=== PATIENT | male | born 1960 | race Caucasian/White ===

== ENCOUNTER 2017-03-03 15:01 | Emergency (ER) | payer OTHER ==
[~2017-03-03] VITALS: Ht 190.5 cm; Wt 125.0 kg
[2017-03-03 15:04] VITALS: BP 157/78; PULSE 79; RESP 24; TEMP 97.7; O2SAT 97
[2017-03-03] MEDS ORDERED: MULTCAP14 (16:09)
[2017-03-03] MEDS ORDERED: prosvent (16:09)
[2017-03-03] MEDS ORDERED: HYDR12.57 PO (16:09)
[2017-03-03] MEDS ORDERED: AMLO10TA2 PO (16:09)
--- NOTE | 2017-03-03 17:01 | PD ---
HPI Chief Complaint: Injury Time Seen by Provider: 16:44 Travel History International Travel<30 days: No Contact w/Intl Traveler<30days: No Traveled to known affect area: No History of Present Illness HPI 56-year-old male complains of headache and bilateral hand pain. Patient states that he slipped and fell and hit the back of his head this morning. Patient denies loss of consciousness. Patient complains of headache in the back of the head. Patient denies any visual change. Patient denies any neck pain. Patient denies any chest pain or shortness of breath. Patient denies abdominal pain. Patient complaining of bilateral hand pain. Patient denies any focal weakness or numbness of extremity. Patient has history recurrent low back pain. PFSH Social History Tobacco Use: No Allergies-Medications (Allergen,Severity, Reaction): Coded Allergies: No Known Allergies (Unverified , 03/03/17) Reported Meds & Prescriptions Reported Meds & Active Scripts Active [place] (Hydrocodone-Acetaminophen) 5-325 mg Tab 1 Tab PO Q6H PRN Ibuprofen 400 Mg Tab 400 Mg PO Q6H PRN Reported Multi For Him (Multiple Vitamins W/ Minerals) 1 Cap Cap [prosvent] Hydrochlorothiazide 12.5 Mg Cap 12.5 Mg PO DAILY Amlodipine (Amlodipine Besylate) 10 Mg Tab 10 Mg PO DAILY Review of Systems General / Constitutional: No: Fever Eyes: No: Visual changes HENT: Positive: Headaches Cardiovascular: No: Chest Pain or Discomfort Respiratory: No: Shortness of Breath Gastrointestinal: No: Abdominal Pain Genitourinary: No: Dysuria Musculoskeletal: Positive: Pain Skin: No Rash Neurologic: No: Weakness Psychiatric: No: Depression Endocrine: No: Polydipsia Hematologic/Lymphatic: No: Easy Bruising Physical Exam Narrative GENERAL: Well-nourished, well-developed patient. SKIN: Focused skin assessment warm/dry. HEAD: Normocephalic. EYES: No scleral icterus. No injection or drainage. Pupils 3 mm equal reactive. NECK: Supple, trachea midline. No JVD or lymphadenopathy. CARDIOVASCULAR: Regular rate and rhythm without murmurs, gallops, or rubs. RESPIRATORY: Breath sounds equal bilaterally. No accessory muscle use. GASTROINTESTINAL: Abdomen soft, non-tender, nondistended. MUSCULOSKELETAL: No cyanosis, or edema. Patient has mild to moderate tenderness and palpation dorsal aspect of both hands. Range of motion of fingers. No redness swelling deformity noted. Full range of motion of the fingers. BACK: Nontender without obvious deformity. No CVA tenderness. Neurologic exam: Patient's awake alert oriented 3. No obvious focal neurological deficit. Data Data Last Documented VS Vital Signs Date Time Temp Pulse Resp B/P Pulse Ox O2 Delivery O2 Flow Rate FiO2 03/03/17 15:04 97.7 79 24 157/78 97 Room Air Orders Hand, Complete ([id number]) (03/03/17 17:04) Ct Brain W/O Iv Contrast(Rout) (03/03/17 17:04) Hand, Complete ([id number]) (03/03/17 17:04) Splinting (03/03/17 ) Ibuprofen (Motrin) (03/03/17 18:15) Acetamin-Hydrocod 325-5 Mg ([place] 5-325 (03/03/17 18:15) Fiberglass Sugartong Sp Ad Arm (03/03/17 ) Sling Cradle Arm (03/03/17 ) MDM Medical Decision Making Medical Screen Exam Complete: Yes Emergency Medical Condition: Yes Differential Diagnosis Differential diagnosis including contusion, concussion, intracranial hemorrhage , Hand contusion versus fracture. Narrative Course 56-year-old male head injury and bilateral hand injury Scripts Hydrocodone-Acetaminophen ([place])5-325 mg Tab1 Tab PO Q6H PRN (PAIN) #12 TAB Ref 0 Prov:Derek Hein MD 03/03/17 Ibuprofen 400 Mg [id number] Mg PO Q6H PRN (PAIN SCALE 1 TO 10) #20 TAB Ref 0 Prov:Derek Hein MD 03/03/17 Nigel Maldonado MD Mar 03, 2017 17:01
--- NOTE | 2017-03-03 17:34 | PD ---
Physical Exam Date Seen by Provider: Mar 03, 2017 Time Seen by Provider: 17:33 Narrative The patient is a 56-year-old male was initially evaluated by the previous physician, Dr. Maldonado. Please refer to the initial history, physical, diagnostic evaluation, and treatment modality plan. The patient was signed out of 5 PM with x-ray and CT pending. Data Data Last Documented VS Vital Signs Date Time Temp Pulse Resp B/P Pulse Ox O2 Delivery O2 Flow Rate FiO2 03/03/17 15:04 97.7 79 24 157/78 97 Room Air Orders Hand, Complete ([id number]) (03/03/17 17:04) Ct Brain W/O Iv Contrast(Rout) (03/03/17 17:04) Hand, Complete ([id number]) (03/03/17 17:04) [facility] Medical Record Reviewed: Yes Supervised Visit with APURVA: No Interpretation(s) Last Impressions Head CT 03/03/171703 Signed Impressions: Service Date/Time: Friday, March 03, 2017 17:29 - CONCLUSION: Negative for an acute process.. Arsh Garza MD FACR Hand X-Ray 03/03/171703 Signed Impressions: Service Date/Time: Friday, March 03, 2017 17:34 - CONCLUSION: Nondisplaced radial styloid fracture. Arsh Garza MD FACR Hand X-Ray 03/03/171703 Signed Impressions: Service Date/Time: Friday, March 03, 2017 17:29 - CONCLUSION: Negative for fracture or dislocation. Follow up in 7-10 days is suggested if symptoms persist. Arsh Garza MD FACR Differential Diagnosis Differential diagnoses includes mechanical fall, closed head injury, fracture, hematoma, contusion, dislocation. Narrative Course The patient was initially evaluated by the previous physician, Dr. Maldonado. Please refer to the initial history, physical, diagnostic evaluation, and treatment modality plan. The patient was sent out of 5 PM with x-ray and CT pending. CT the brain is negative. X-ray left hand is unremarkable. X-ray the right hand reveals a nondisplaced radial styloid fracture. Therefore, the patient was placed in a sugar tong splint, is advised to follow-up with orthopedics. Patient will be prescribed pain medications. He is stable for discharge. Diagnosis Primary Impression: Right wrist fracture Qualified Code: S62.101A - Right wrist fracture, closed, initial encounter Additional Impression: Closed head injury Qualified Code: S09.90XA - Closed head injury, initial encounter Patient Instructions: General Instructions Additional Instruction: Splint as directed. Elevate, ice, Motrin and [place] as directed. Follow-up with an orthopedist. Med/Other Pt SpecificInfo: Prescription(s) given Scripts Hydrocodone-Acetaminophen ([place])5-325 mg Tab1 Tab PO Q6H PRN (PAIN) #12 TAB Ref 0 Prov:Derek Hein MD 03/03/17 Ibuprofen 400 Mg Buf597 Mg PO Q6H PRN (PAIN SCALE 1 TO 10) #20 TAB Ref 0 Prov:Derek Hein MD 03/03/17 Disposition: 01 DISCHARGE HOME Condition: Stable Derek Hein MD Mar 03, 2017 17:34
--- NOTE | 2017-03-03 17:43 | RADRPT ---
EXAM DATE/TIME: 03/03/2017 17:29 [facility] COMPARISON: No previous studies available for comparison. INDICATIONS : Left hand pain after fall today MEDICAL HISTORY : None. SURGICAL HISTORY : None. ENCOUNTER: Initial ACUITY: 1 day PAIN SCORE: 9/10 LOCATION: Left entire hand FINDINGS: Three view examination of the left hand demonstrates no soft tissue swelling, dislocation, or fractur e. The carpal bones appear intact. The interphalangeal and metacarpophalangeal joints are intact. Bony mineralization is normal. CONCLUSION: Negative for fracture or dislocation. Follow up in 7-10 days is suggested if symptoms persist. Arsh Garza MD FACR on March 03, 2017 at 17:41 Board Certified Radiologist. This report was verified electronically.
--- NOTE | 2017-03-03 17:48 | RADRPT ---
EXAM DATE/TIME: 03/03/2017 17:29 [facility] COMPARISON: No previous studies available for comparison. INDICATIONS : Slip and fall today; hit posterior head. RADIATION DOSE: 44.27 CTDIvol (mGy) MEDICAL HISTORY : None SURGICAL HISTORY : None. ENCOUNTER: Initial ACUITY: 1 day PAIN SCALE: 6/10 LOCATION: cranial Posterior TECHNIQUE: Multiple contiguous axial images were obtained of the head. Using automated exposure control and adj ustment of the mA and/or kV according to patient size, radiation dose was kept as low as reasonably a chievable to obtain optimal diagnostic quality images. FINDINGS: CEREBRUM: The ventricles are normal for age. No evidence of midline shift, mass lesion, hemorrhage or acute in farction. No extra-axial fluid collections are seen. POSTERIOR FOSSA: The cerebellum and brainstem are intact. The 4th ventricle is midline. The cerebellopontine angle i s unremarkable. EXTRACRANIAL: The visualized portion of the orbits is intact. SKULL: The calvaria is intact. No evidence of skull fracture. CONCLUSION: Negative for an acute process.. Arsh Garza MD FACR on March 03, 2017 at 17:42 Board Certified Radiologist. This report was verified electronically.
--- NOTE | 2017-03-03 17:49 | RADRPT ---
EXAM DATE/TIME: 03/03/2017 17:34 [facility] COMPARISON: No previous studies available for comparison. INDICATIONS : Right hand pain after fall today MEDICAL HISTORY : None. SURGICAL HISTORY : None. ENCOUNTER: Initial ACUITY: 1 day PAIN SCORE: 9/10 LOCATION: Right entire hand FINDINGS: There is an nondisplaced fracture of the radial styloid. No other fractures are appreciated. CONCLUSION: Nondisplaced radial styloid fracture. Arsh Garza MD FACR on March 03, 2017 at 17:46 Board Certified Radiologist. This report was verified electronically.
[2017-03-03] MEDS ORDERED: IBUP400T20 PO (18:11)
[2017-03-03] MEDS ORDERED: NORC5TAB PO (18:11)
[2017-03-03] MEDS ORDERED: IBUPROFEN 400 MG TAB PO ONE (18:15)
[2017-03-03] MEDS ORDERED: ACETAMINOPHEN/HYDROcodone 325 MG/5 MG TAB PO ONE (18:15)
== END 2017-03-03 19:18 | disposition home or self-care (01) ==
LOC: NEPD 15:01
DX: S62.101A Fracture of unspecified carpal bone, right wrist, initial encounter for closed fracture (principal); S09.90XA Unspecified injury of head, initial encounter; M79.642 Pain in left hand; Z87.39 Personal history of other diseases of the musculoskeletal system and connective tissue; W01.0XXA Fall on same level from slipping, tripping and stumbling without subsequent striking against object, initial encounter
CPT/HCPCS: 29125; 70450; 73130

== ENCOUNTER 2017-05-01 16:17 | Emergency (ER) | payer OTHER ==
[~2017-05-01] VITALS: Ht 190.5 cm; Wt 120.0 kg
[~2017-05-01 16:17] MED LIST: AMLO10TA2 PO; HYDR12.57 PO; IBUP400T20 PO; MULTCAP14; NORC5TAB PO; prosvent
[2017-05-01 16:26] VITALS: BP 134/79; PULSE 82; RESP 20; TEMP 97.7; O2SAT 97
--- NOTE | 2017-05-01 16:36 | PD ---
Physical Exam Date Seen by Provider: May 01, 2017 Time Seen by Provider: 16:36 Data Data Last Documented VS Vital Signs Date Time Temp Pulse Resp B/P Pulse Ox O2 Delivery O2 Flow Rate FiO2 05/01/17 16:26 97.7 82 20 134/79 97 Room Air MDM Supervised Visit with APURVA: No Narrative Course 56 YO M with complaint of 6/10 right hip pain after mechanical fall onto the grass. Normally ambulatory with walker. Arrives by EMS. Vitals reviewed. Awaiting bed placement. Dinora Haro May 01, 2017 16:36
[2017-05-01] MEDS ORDERED: CYCLOBENZAPRINE HCL 10 MG TAB PO ONE (17:15)
[2017-05-01] MEDS ORDERED: KETOROLAC TROMETHAMINE 60 MG/2 ML (IM) VIAL IM ONE (17:15)
--- NOTE | 2017-05-01 17:21 | PD ---
HPI Chief Complaint: Fall Time Seen by Provider: 17:00 Travel History International Travel<30 days: No Contact w/Intl Traveler<30days: No Traveled to known affect area: No History of Present Illness HPI Patient comes in complaining of right hip pain status post mechanical fall that occurred shortly prior to arrival. Patient states that he is trying to get into his van when he lost his balance causing him to fall backwards landing on his right hip and falling back. Patient reports he normally walks with a cane secondary to degenerative disc disease however he was using a walker today that is his [id number] because his did not want it to get stolen. Patient denies hitting his head or loss consciousness. Denies any chest pain, shortness of breath, loss of bowel or bladder, numbness or tingling anywhere, dizziness, headache, or fevers. Patient describes pain as feeling like a deep bruise. Pain is worse with palpation certain movement. Denies any radiation of the pain. Patient states called EMS secondary to he was having difficulty being able stand up again secondary to the pain. PFSH Past Medical History Cardiovascular Problems: Yes (HTN) Hypertension: Yes Medical other: Yes (Degenerative disk disease) Past Surgical History Surgical History: No Previous Surgery Social History Alcohol Use: No Tobacco Use: No Substance Use: No Allergies-Medications (Allergen,Severity, Reaction): Coded Allergies: Lisinopril (Verified Allergy, Unknown, Hives, 05/01/17) Pt. remembered reaction during another appointment. Reported Meds & Prescriptions Reported Meds & Active Scripts Active Flexeril (Cyclobenzaprine HCl) 10 Mg Tab 10 Mg PO Q8HR PRN Naprosyn (Naproxen) 500 Mg Tab 500 Mg PO Q12HR PRN Ibuprofen 400 Mg Tab 400 Mg PO Q6H PRN Reported Multi For Him (Multiple Vitamins W/ Minerals) 1 Cap Cap [prosvent] Hydrochlorothiazide 12.5 Mg Cap 12.5 Mg PO DAILY Amlodipine (Amlodipine Besylate) 10 Mg Tab 10 Mg PO DAILY Review of Systems Except as stated in HPI: all other systems reviewed are Neg Physical Exam Narrative GENERAL: Well-developed, overly nourished, in no acute distress, and non-ill appearing. SKIN: Focused skin assessment warm and dry. HEAD: Atraumatic. Normocephalic. EYES: Pupils equal and round. EOMI. No scleral icterus. No injection or drainage. ENT: No nasal bleeding or discharge. Mucous membranes pink and moist. NECK: Trachea midline. Supple. No nuclear rigidity. CARDIOVASCULAR: Dorsal pulses 2+, intact, and equal bilaterally. Capillary refill less than 2 seconds. RESPIRATORY: No accessory muscle use. No respiratory distress. GASTROINTESTINAL: Abdomen soft, non-tender, nondistended. Hepatic and splenic margins not palpable. No pulsatile mass. MUSCULOSKELETAL: No obvious deformities. No clubbing. No cyanosis. No edema. Full range of motion. Straight leg test negative bilaterally. No tenderness or crepitus throughout lumbar spine.Hip: FROM and equal BL with passive flexion , extension, Abduction, Adduction, and internal/external rotation. Pulses equal BL distal to injury. Capillary refill less than 2 seconds distal to injury and equal BL. FROM distal to injury and equal BL. Strength distal to injury equal BL. NV intact distal to injury and equal BL. Plantar flexion and dorsal flexion equal BL. Dorsal pulses equal BL. Sensation equal BL 1st web space. Patient reports increased pain with certain movement of right hip. NEUROLOGICAL: Awake and alert. No obvious cranial nerve deficits. Motor grossly within normal limits. Normal speech. PSYCHIATRIC: Appropriate mood and affect; insight and judgment normal. Data Data Last Documented VS Vital Signs Date Time Temp Pulse Resp B/P Pulse Ox O2 Delivery O2 Flow Rate FiO2 05/01/17 19:02 65 16 155/72 97 05/01/17 16:26 97.7 Room Air Orders Ketorolac Inj (Toradol Inj) (05/01/17 17:15) Cyclobenzaprine (Flexeril) (05/01/17 17:15) Hip, Uni(Ap&Lat) W Ap Pelvis (05/01/17 ) Diphenhydramine (Benadryl) (05/01/17 17:45) MDM Medical Decision Making Medical Screen Exam Complete: Yes Emergency Medical Condition: Yes Interpretation(s) Hip x-ray read by the radiologist shows: Severe osteoarthritis of the right hip with bony hypertrophy and complete loss of the superior joint space. No fracture seen. Differential Diagnosis Fracture, sprain, contusion, other Narrative Course The patient appears to have suffered a contusion of the hip. There is no clinical evidence to suspect bony injury by exam. Radiographic examination revealed no fracture seen at this time. The patient has full range of motion on active and passive motions. There is no significant edema. There is no proximal or distal joint effusion. The distal extremity appears neurovascularly intact, without evidence of neurovascular injury nor compartment syndrome. Tendon exam also was intact. The patient was discharged on pain medication instructions and given warnings for vascular compromise. The patient is to follow up with their regular physician or Orthopedics. The patient agrees with plan. Patient in no obvious distress upon re-evaluation. All pertinent Radiology result(s) discussed with patient. Patient was asked if they wanted to speak to my attending, which the patient did not wish to do at this time. Any questions/ concerns in reference to patient diagnosis/condition discussed and clarified prior to patient's discharge. Reinforced sheer importance of close follow up with patient's primary physician or primary care clinic. Instructed patient to return to ED immediately, if symptoms return/worsen. Pt showed understanding of above instructions. Further instructions and recommendations were detailed in discharge paperwork. Pt ambulated without difficulty out of ED at discharge with his walker. Diagnosis Primary Impression: Right hip pain Additional Impressions: Fall Qualified Code: W19.XXXA - Fall, initial encounter Arthritis of right hip Patient Instructions: Arthritis (ED), Contusion in Adults (ED), Fall Prevention (ED), General Instructions Additional Instructions: Follow-up with your primary care physician in 2-3 days for reevaluation and possible orthopedic referral. Take all medication as prescribed. Return to the emergency department if symptoms get worse. Med/Other Pt SpecificInfo: Prescription(s) given Scripts Cyclobenzaprine (Flexeril)10 Mg Tab10 Mg PO Q8HR PRN (MUSCLE PAIN) #14 TAB Ref 0 Prov:Trudy Humphrey MD 05/01/17 Naproxen (Naprosyn)500 Mg [id number] Mg PO Q12HR PRN (PAIN SCALE 1 TO 10) #14 TAB Ref 0 Prov:Trudy Humphrey MD 05/01/17 Disposition: 01 DISCHARGE HOME Condition: Stable Silvano Padilla May 01, 2017 17:21
[2017-05-01] MEDS ORDERED: diphenhydrAMINE HCL 25 MG CAP PO ONE (17:45)
--- NOTE | 2017-05-01 18:48 | RADRPT ---
EXAM DATE/TIME: 05/01/2017 17:21 [facility] COMPARISON: No previous studies available for comparison. INDICATIONS : Chronic right hip pain, worsening for several days MEDICAL HISTORY : None. SURGICAL HISTORY : None. ENCOUNTER: Initial ACUITY: 3 days PAIN SCORE: 7/10 LOCATION: Right hip FINDINGS: There is severe osteoarthritis of the right hip with complete loss of the superior joint space and sc lerosis about the supra-acetabular region and femoral head. There is also bony overgrowth of the inf erior femoral head with a large ossification. No fracture seen. There is mild degenerative changes in the left hip. The bony pelvic ring is grossly intact. CONCLUSION: Severe osteoarthritis of the right hip with bony hypertrophy and complete loss of the superior joint space. No fracture seen. Rancho Das MD on May 01, 2017 at 18:45 Board Certified Radiologist. This report was verified electronically.
[2017-05-01 19:02] VITALS: BP 155/72; PULSE 65; RESP 16; O2SAT 97
[2017-05-01] MEDS ORDERED: NAPR500 PO (19:08)
[2017-05-01] MEDS ORDERED: CYCL1TAB29 PO (19:08)
== END 2017-05-01 20:10 | disposition home or self-care (01) ==
LOC: NEPD 16:17
DX: I10 Essential (primary) hypertension (principal); M25.551 Pain in right hip; W19.XXXA Unspecified fall, initial encounter; Y92.007 Garden or yard of unspecified non-institutional (private) residence as the place of occurrence of the external cause
CPT/HCPCS: 73502; 96372; 99284; J1885

== ENCOUNTER 2017-12-21 15:00 | Inpatient (IN) | payer OTHER, MEDICARE ==
[~2017-12-21] VITALS: Ht 190.5 cm; Wt 126.4 kg
[~2017-12-21 15:00] MED LIST changes: +CYCL10TA PO; +IBUP1TAB5 PO; -IBUP400T20 PO; +NAPR500 PO; -NORC5TAB PO
[2017-12-21 15:24] VITALS: BP 127/69; PULSE 104; RESP 16; TEMP 98.6; O2SAT 98
[2017-12-21] MEDS ORDERED: ONDANSETRON HCL 4 MG/2 ML VIAL IVP ONE (16:30)
[2017-12-21] MEDS ORDERED: SODIUM CHLORIDE 0.9% FLUSH 10 ML FLUSH IV FLUSH PRN ×2 (16:30→17:15)
[2017-12-21] MEDS ORDERED: MORPHINE SULFATE 2 MG/ML INJ IV PUSH ONE (16:30)
[2017-12-21 16:36] VITALS: O2SAT 99
--- NOTE | 2017-12-21 16:39 | PD ---
HPI Chief Complaint: Injury Time Seen by Provider: 16:05 Travel History International Travel<30 days: No Contact w/Intl Traveler<30days: No Traveled to known affect area: No History of Present Illness HPI Patient comes in complaining of sharp stabbing pain in his right ankle that began after slipping fall on tile floor this morning. Patient states he thinks he landed on his right ankle causing the injury. Patient states he walks with a walker secondary to degenerative disc disease and was using it today when this occurred. Patient tried resting and elevating his ankle without improvement. Patient tried to ambulate without success. Patient denies any radiation of the pain. Touching it or applying weight to the right ankle makes the pain worse. Denies hitting his head or loss of consciousness. Denies being on any blood thinners. Patient reports he last ate around 8:00 this morning he had a couple sips of tea around noon. PFSH Past Medical History Cardiovascular Problems: Yes (HTN) Hypertension: Yes Tetanus Vaccination: < 5 Years Past Surgical History Surgical History: No Previous Surgery Social History Alcohol Use: No Tobacco Use: No Substance Use: No Allergies-Medications (Allergen,Severity, Reaction): Coded Allergies: lisinopril (Unverified Allergy, Unknown, Hives, 12/21/17) Pt. remembered reaction during another appointment. Reported Meds & Prescriptions Reported Meds & Active Scripts Active Reported Atorvastatin (Atorvastatin Calcium) 10 Mg Tab 10 Mg PO HS Gabapentin 300 Mg Cap 300 Mg PO HS Multi For Him (Multiple Vitamins W/ Minerals) 1 Cap Cap [prosvent] Hydrochlorothiazide 12.5 Mg Cap 12.5 Mg PO DAILY Amlodipine (Amlodipine Besylate) 10 Mg Tab 10 Mg PO DAILY Review of Systems Except as stated in HPI: all other systems reviewed are Neg Physical Exam Narrative GENERAL: Well-developed, overly nourished, in no acute distress, and non-ill appearing. SKIN: Focused skin assessment warm and dry. HEAD: Atraumatic. Normocephalic. EYES: Pupils equal and round. EOMI. No scleral icterus. No injection or drainage. ENT: No nasal bleeding or discharge. Mucous membranes pink and moist. NECK: Trachea midline. Supple. No nuclear rigidity. CARDIOVASCULAR: Dorsal pulses 2+, intact, equal bilaterally. Capillary refill less than 2 seconds. RESPIRATORY: No accessory muscle use. No respiratory distress. MUSCULOSKELETAL: No obvious deformities. No clubbing. No cyanosis. No edema. Decreased range of motion right ankle secondary to pain. Ankle: Neagative anterior draw and Loera test. Negative Lani's sign. No laxity noted with passive inversion and eversion of BL ankles. Negative squeeze test. Pulses equal BL distal to injury. Capillary refill less than 2 seconds distal to injury and equal BL. Sensation equal BL 1st web space. FROM of toes distal to injury and equal BL. NV intact distal to injury and equal BL. Dorsal pulses equal BL. Patient reports tenderness palpation bilateral ankle. No crepitus. Soft tissue swelling noted. NEUROLOGICAL: Awake and alert. No obvious cranial nerve deficits. Motor grossly within normal limits. Normal speech. PSYCHIATRIC: Appropriate mood and affect; insight and judgment normal. Data Data Last Documented VS Vital Signs Date Time Temp Pulse Resp B/P (MAP) Pulse Ox O2 Delivery O2 Flow Rate FiO2 12/21/17 16:36 99 12/21/17 15:24 98.6 104 16 Room Air Orders Orders Ankle, Complete ([id number]) (12/21/17 ) Basic Metabolic Panel (Bmp) (12/21/17 16:22) Complete Blood Count With Diff (12/21/17 16:22) Prothrombin Time / Inr (Pt) (12/21/17 16:22) Act Partial Throm Time (Ptt) (12/21/17 16:22) Iv Access Insert/Monitor (12/21/17 16:22) Ecg Monitoring (12/21/17 16:22) Oximetry (12/21/17 16:22) Ondansetron Inj (Zofran Inj) (12/21/17 16:30) Sodium Chloride 0.9% Flush (Ns Flush) (12/21/17 16:30) Morphine Inj (Morphine Inj) (12/21/17 16:30) Splint Or Brace Apply/Monitor (12/21/17 16:37) Admit Order (Ed Use Only) (12/21/17 ) Vital Signs (Adult) Q4H (12/21/17 17:05) Activity Bed Rest (12/21/17 17:05) Notify Dr: Other (12/21/17 17:05) Admit To Inpatient (12/21/17 ) Vital Signs (Adult) Q4H (12/21/17 17:05) Activity Bed Rest (12/21/17 17:05) Gunite Mixer / Telemetry .CONTINUOUS (12/21/17 17:05) Sodium Chloride 0.9% Flush (Ns Flush) (12/21/17 17:15) Sodium Chloride 0.9% Flush (Ns Flush) (12/21/17 21:00) Ondansetron Inj (Zofran Inj) (12/21/17 17:15) Basic Metabolic Panel (Bmp) (12/22/17 06:00) Complete Blood Count With Diff (12/22/17 06:00) Case Management Consult (12/21/17 17:05) Naloxone Inj (Narcan Inj) (12/21/17 17:15) Inpatient Certification (12/21/17 ) Morphine Inj (Morphine Inj) (12/21/17 17:15) Consult Orthopedic (12/21/17 ) Amlodipine (Norvasc) (12/22/17 09:00) Gabapentin (Neurontin) (12/21/17 21:00) Hydrochlorothiazide (Microzide) (12/22/17 09:00) MDM Medical Decision Making Medical Screen Exam Complete: Yes Emergency Medical Condition: Yes Interpretation(s) Last Impressions Ankle X-Ray 12/21/17 0000 Signed Impressions: Service Date/Time: Thursday, December 21, 2017 16:06 - CONCLUSION: 1. Mildly displaced fractures of the distal tibia and fibula. Andres Crowder MD Differential Diagnosis fracture, sprain, contusion, dislocation Narrative Course Patient seen and exam. Initial laboratory studies were ordered and reviewed.Initial laboratory studies were ordered. Discussed patient with Dr. Novoa, who is in agreement of plan of care disposition. Discussed patient with orthopedic who is agreeable to consult on the patient. Discussed patient with hospitalist, who is agreeable to admit the patient. Discussed all findings and plan of care with patient, who is agreeable for admission. All questions were answered. Physician Communication Physician Communication [id number] Redmond, orthopedic on-call, recommends splinting , n.p.o. after midnight, and admit to medicine for surgery tomorrow. [address] Daniel, who is agreeable to admit the patient. Diagnosis Primary Impression: Closed right ankle fracture Qualified Codes: S82.891A - Other fracture of right lower leg, initial encounter for closed fracture Admitting Information Admitting Physician Requests: Admit Condition: Stable Silvano Padilla Dec 21, 2017 16:39
--- NOTE | 2017-12-21 16:40 | RADRPT ---
EXAM DATE/TIME: 12/21/2017 16:06 [facility] COMPARISON: No previous studies available for comparison. INDICATIONS : Right ankle pain after fall today. MEDICAL HISTORY : None. SURGICAL HISTORY : None. ENCOUNTER: Initial ACUITY: 1 day PAIN SCORE: 10/10 LOCATION: Right ankle. FINDINGS: There is a mildly comminuted mildly displaced fracture of the distal tibia and distal fibula with ove rlying soft tissue swelling. No dislocation. Also small avulsion fracture from lateral malleolus. Mod erate to severe osteoarthritis and hindfoot. CONCLUSION: 1. Mildly displaced fractures of the distal tibia and fibula. Andres Crowder MD on December 21, 2017 at 16:37 Board Certified Radiologist. This report was verified electronically.
[2017-12-21] MEDS ORDERED: ATOR10TA15 PO (16:47)
[2017-12-21] MEDS ORDERED: GABA300C5 PO (16:47)
[2017-12-21] MEDS ORDERED: NALOXONE HCL 0.4 MG/ML AMP IV PUSH PRN (17:15)
[2017-12-21] MEDS ORDERED: ONDANSETRON HCL 4 MG/2 ML VIAL IVP PRN (17:15)
[2017-12-21 17:26] LABS: BASOPHIL % 0.4 % (0.0-2.0); EOSINOPHIL % 0.4 % (0.0-4.0); HEMATOCRIT 38.9 % (39.0-51.0); HEMOGLOBIN 12.7 GM/DL (13.0-17.0); LYMPH % 13.1 % (9.0-44.0); LYMPHOCYTE # 1.4 TH/MM3 (1.0-4.8); MEAN CELL VOLUME 81.9 FL (80.0-100.0); MEAN CORPUSCULAR HEMOGLOBIN 26.8 PG (27.0-34.0); MEAN CORPUSCULAR HGB CONC 32.7 % (32.0-36.0); MEAN PLATELET VOLUME 7.6 FL (7.0-11.0); MONO % 10.1 % (0.0-8.0); MONOCYTE # 1.1 TH/MM3 (0-0.9); PLATELET COUNT 243 TH/MM3 (150-450); RED BLOOD COUNT 4.74 MIL/MM3 (4.50-5.90); RED CELL DISTRIBUTION WIDTH 14.8 % (11.6-17.2); WHITE BLOOD COUNT 10.5 TH/MM3 (4.0-11.0)
[2017-12-21 17:37] LABS: PROTHROMBIN TIME - PATIENT 10.6 SEC (9.8-11.6)
[2017-12-21 17:38] VITALS: BP 147/82; PULSE 104; RESP 18; O2SAT 99
[2017-12-21 17:41] LABS: BICARBONATE 27.3 MEQ/L (21.0-32.0); CALCIUM 9.5 MG/DL (8.5-10.1); CREATININE 0.98 MG/DL (0.60-1.30)
[2017-12-21 19:40] VITALS: BP 142/88; PULSE 108; RESP 18; TEMP 97.1; O2SAT 94
[2017-12-21] MEDS: GABAPENTIN 300 MG CAP PO SCH (20:09)
[2017-12-21] MEDS: MORPHINE SULFATE 2 MG/ML INJ IV PUSH PRN ×2 (20:10→23:18)
[2017-12-21] MEDS: SODIUM CHLORIDE 0.9% FLUSH 10 ML FLUSH IV FLUSH SCH (20:11)
[2017-12-21] MEDS ORDERED: POTASSIUM CHLORIDE 10 MEQ CONTROLLED RELEASE TAB PO ONE (20:30)
[2017-12-21] MEDS ORDERED: TAMS5CAP PO (20:43)
[2017-12-21 23:30] VITALS: BP 144/87; PULSE 91; RESP 17; TEMP 98.6; O2SAT 96
[2017-12-21 23:55] VITALS: PULSE 90
[2017-12-22] VITALS (7 sets, daily range): BP systolic 110–157; BP diastolic 60–80; PULSE 73–93; RESP 18; TEMP 96.3–99.2; O2SAT 92–100
[2017-12-22] MEDS ORDERED: INSULIN HUMAN REGULAR 1,000 UNITS/10 ML VIAL SQ PRN (02:00)
[2017-12-22] MEDS ORDERED: LACTATED RINGER'S 1000 ML IV PRN (02:00)
[2017-12-22] MEDS ORDERED: POVIDONE IODINE 5% (ANTISEPSIS KIT) 4 APPLICATIONS EACH NARE PRN (02:00)
[2017-12-22] MEDS ORDERED: CHLORHEXIDINE GLUCONATE 2 % 1 PACK (2 CLOTHS) TOPICAL PRN (02:00)
[2017-12-22] MEDS ORDERED: SODIUM CHLORID 0.9% 500 ML IV PRN (02:00)
[2017-12-22] MEDS ORDERED: METOPROLOL TARTRATE 25 MG TAB PO PRN (02:00)
[2017-12-22] MEDS ORDERED: MORPHINE SULFATE 2 MG/ML INJ IV PUSH ONE (02:00)
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
[2017-12-22] MEDS: MORPHINE SULFATE 2 MG/ML INJ IV PUSH PRN ×2 (05:06→08:17)
--- NOTE | 2017-12-22 06:42 | PD.ORT.PN ---
Subjective Subjective Remarks s/p slip and fall at home right hip and right ankle fx no other complaints. Objective Vitals Vital Signs Date Time Temp Pulse Resp B/P (MAP) Pulse Ox O2 Delivery O2 Flow Rate FiO2 12/22/17 03:50 81 12/22/17 03:30 99.2 85 18 110/69 (83) 92 12/21/17 23:55 90 12/21/17 23:30 98.6 91 17 144/87 (106) 96 12/21/17 19:40 97.1 108 18 142/88 (106) 94 12/21/17 18:43 12/21/17 17:39 18 12/21/17 17:38 104 18 147/82 (103) 99 Room Air 12/21/17 16:36 99 12/21/17 15:24 98.6 104 16 127/69 (88) 98 Room Air I/O 12/21/17 12/21/17 12/21/17 12/22/17 12/22/17 12/22/17 07:00 15:00 23:00 07:00 15:00 23:00 Intake Total 240 ml 240 ml Output Total 200 ml 250 ml Balance 40 ml -10 ml Intake Oral 240 ml 240 ml Output Urine Total 200 ml 250 ml # Voids 2 # Bowel Movements 0 0 Result Diagram: 12/21/17 1635 12/21/17 1635 Other Results Laboratory Tests Test 12/21/17 16:35 Prothromb Time International Ratio 1.0 RATIO Prothrombin Time 10.6 SEC (9.8-11.6) Objective Remarks RLE: +short leg splint. intact. nvi. point tender over greater troch. no pain with hip motion Assessment & Plan Assessment and Plan 1) Right Distal tib/fib fxs -stat CT scan -sign consents -surgery today Yassine Mccauley/First Taya CHÁVEZ Dec 22, 2017 06:42
[2017-12-22 07:01] LABS: AUTOMATED NEUTROPHIL # 4.5 TH/MM3 (1.8-7.7); BASOPHIL % 0.6 % (0.0-2.0); EOSINOPHIL # 0.1 TH/MM3 (0-0.4); EOSINOPHIL % 1.3 % (0.0-4.0); HEMATOCRIT 34.5 % (39.0-51.0); HEMOGLOBIN 11.6 GM/DL (13.0-17.0); LYMPH % 23.9 % (9.0-44.0); LYMPHOCYTE # 1.7 TH/MM3 (1.0-4.8); MEAN CELL VOLUME 81.9 FL (80.0-100.0); MEAN CORPUSCULAR HEMOGLOBIN 27.5 PG (27.0-34.0); MEAN CORPUSCULAR HGB CONC 33.6 % (32.0-36.0); MEAN PLATELET VOLUME 7.3 FL (7.0-11.0); MONO % 12.7 % (0.0-8.0); MONOCYTE # 0.9 TH/MM3 (0-0.9); NEUT % 61.5 % (16.0-70.0); PLATELET COUNT 185 TH/MM3 (150-450); RED BLOOD COUNT 4.22 MIL/MM3 (4.50-5.90); RED CELL DISTRIBUTION WIDTH 14.6 % (11.6-17.2); WHITE BLOOD COUNT 7.3 TH/MM3 (4.0-11.0)
[2017-12-22 07:35] LABS: BICARBONATE 32.3 MEQ/L (21.0-32.0); CALCIUM 8.1 MG/DL (8.5-10.1); CREATININE 0.87 MG/DL (0.60-1.30)
[2017-12-22] MEDS ORDERED: XARE10TA PO (07:47)
[2017-12-22] MEDS ORDERED: WALKER/ADULT/FO1 MIS (07:47)
[2017-12-22] MEDS ORDERED: HYDR-3583 PO (07:47)
--- NOTE | 2017-12-22 08:08 | RADRPT ---
EXAM DATE/TIME: 12/22/2017 07:44 [facility] COMPARISON: ANKLE RIGHT COMPLETE ([id number]), December 21, 2017, 16:06. INDICATIONS : Evaluate fracture right ankle RADIATION DOSE: 7.29 CTDIvol (mGy) MEDICAL HISTORY : None SURGICAL HISTORY : None. ENCOUNTER: Initial ACUITY: 1 day PAIN SCALE: 9/10 LOCATION: Right Lower extremity TECHNIQUE: Volumetric scanning of the ankle was performed. Using automated exposure control and adjustment of t he mA and/or kV according to patient size, radiation dose was kept as low as reasonably achievable to obtain optimal diagnostic quality images. DICOM format image data is available electronically for review and comparison. FINDINGS: BONES: Slightly comminuted trimalleolar fracture noted. There is a fracture running vertically through the m edial malleolus and posterior malleolus with minimal displacement. Distal fibular fracture. Ankle mor tise is intact. Degenerative changes of the subtalar joints, hindfoot and midfoot. Moderate size plan tar calcaneal spur. JOINTS: Ankle mortise is intact. SOFT TISSUES: Muscles, tendons and neurovascular structures are grossly unremarkable. No evidence of mass, organize d fluid collection, or foreign body. CONCLUSION: Trimalleolar fracture. Ankle mortise intact. Kehinde Camilo MD on December 22, 2017 at 8:02 Board Certified Radiologist. This report was verified electronically.
[2017-12-22] MEDS: SODIUM CHLORIDE 0.9% FLUSH 10 ML FLUSH IV FLUSH SCH ×2 (08:18→20:29)
[2017-12-22] MEDS: HYDROCHLOROTHIAZIDE 12.5 MG CAP PO SCH (09:00)
[2017-12-22] MEDS ORDERED: VANCOMYCIN HCL 1000 MG VIAL ONE (09:22)
[2017-12-22] MEDS ORDERED: ACETAMINOPHEN 1000 MG/100 ML 100 ML IV ONE (09:22)
[2017-12-22] MEDS ORDERED: GENTAMICIN SULFATE 80 MG/2 ML VIAL ONE (09:23)
[2017-12-22] MEDS ORDERED: BUPIVACAINE/EPINEPHRINE 0.25% 50 ML VIAL ONE (09:23)
[2017-12-22] MEDS ORDERED: ceFAZolin 2 GM PREMIX 50 ML ONE (09:23)
[2017-12-22] MEDS ORDERED: MORPHINE SULFATE 4 MG/ML INJ IV PUSH PRN (11:00)
[2017-12-22] MEDS ORDERED: Post-op Orders (for Pharmacy) XX ONE (11:00)
--- NOTE | 2017-12-22 11:00 | PD.OP ---
cc: Gilberto Meza MD Operative Report Date of Surgery: Dec 22, 2017 Preoperative Diagnosis: Displaced right distal tibia and fibula fractures Postoperative Diagnosis: Procedure: Open reduction internal fixation right distal tibia and fibula fractures Anesthesia: Gen. Surgeon: Gilberto Meza Manager Heavy Equipment(s): CHAYO Can PA-C The surgical procedure was assisted by my physician assistant commissioner. My P.A. presence was necessary throughout this case for the manipulation and positioning of the surgical extremity. My P.A. was assisting me throughout the duration of this procedure. The skill set of a physician assistant commissioner was medically necessary to complete this procedure. During the surgical case the assistant professor surgical technology was working at the back table and the physician assistant commissioner was directly assisting me. Operation and Findings: This patient had a fall resulting in right distal tibia fracture with distal fibula fracture. Informed consent was obtained, and operative site was marked. The patient was seen and evaluated preoperatively. Patient was brought to the OR and placed on the OR table, and given IV sedation and GETA. IV antibiotics were administered and timeout procedure was performed. The operative leg was now prepped with alcohol followed by Hibiclens and draped in the usual sterile fashion. At this point the right ankle soft tissue was evaluated. Patient had moderate swelling and significant bruising. Because of patient's skin condition the options of external fixation versus limited incision internal fixation were considered. Because of patient's fracture pattern, decision was made to proceed with limited incision internal fixation. Attention was first turned towards the distal tibia. A small incision was made over the posterior medial tibia. A second small incision was made over the anterior tibia. A fracture tenaculum was now placed around the fracture site. The fracture of the distal tibia was gently manipulated. Fracture reduced into excellent alignment. The fracture tenaculum was used to compress fracture. Multiplanar fluoroscopy confirmed well aligned fracture. At this 3 small incisions were made along the anterior tibia. Guide pins for the Synthes 4.0 cannulated screws were placed from anterior to posterior. Screw lengths were measured. Cannulated drill was placed over the guidepins. 3 screws were now placed. Good compression was obtained. Fluoroscopy confirmed well-placed hardware. Next attention was turned towards the distal fibula. Because of patient's skin condition, open reduction internal fixation with a plate was not felt to be appropriate. The fracture was gently manipulated. Fracture reduced into a well aligned position. A small incision was made distal to the fibula. A 2.5 mm drill bit was used to create a hole in the distal end of the fibula. A 120 mm 3.5 screw was now placed in a retrograde fashion across the fracture site. Fracture was held in reduced position. The screw was placed in the intramedullary canal of the fibular shaft. Final fluoroscopy revealed well aligned fracture with well-placed hardware. The syndesmosis was now stressed under fluoroscopy. The syndesmosis appeared to be stable with no widening. Incisions were closed with 3-0 nylon. Sterile dressings were applied. A well molded well-padded splint was also applied. Needle and sponge counts were correct. The patient was transferred to recovery in stable condition. Gilberto Meza MD Dec 22, 2017 11:00
[2017-12-22] MEDS ORDERED: DO NOT ADM ANY ANTICOAGULANT DRUGS PRN (11:10)
[2017-12-22] MEDS ORDERED: *RESP: ALBUTEROL 2.5 MG/3 ML NEB (PRN) PERIprocedural Use ONLY NEB ONE (11:15)
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
[2017-12-22] MEDS ORDERED: ONDANSETRON HCL 4 MG/2 ML VIAL IV ONE (12:00)
[2017-12-22] MEDS ORDERED: DEXAMETHASONE SOD PHOS 4 MG/ML VIAL IV ONE (12:00)
[2017-12-22] MEDS ORDERED: ROCURONIUM INJ 50 MG/5 ML SYRINGE IV PUSH ONE (12:00)
[2017-12-22] MEDS ORDERED: LIDOCAINE HCL 1% PF 5 ML SYRINGE OTHER ONE (12:00)
[2017-12-22] MEDS ORDERED: PHENYLEPH/NS 1000 MCG/10 ML SYR IV ONE (12:00)
[2017-12-22] MEDS ORDERED: PROPOFOL 200 MG/20 ML AMP IV ONE (12:00)
--- NOTE | 2017-12-22 12:01 | EKG ---
Date Performed: 12/22/2017 Time Performed: 05:23:34 PTAGE: 57 years EKG: Sinus rhythm . Normal ECG NO PREVIOUS TRACING DOCTOR: Marco A Mclean Interpretating Date/Time 12/22/2017 11:59:50
--- NOTE | 2017-12-22 12:30 | RADRPT ---
EXAM DATE/TIME: 12/22/2017 10:28 [facility] COMPARISON: No previous studies available for comparison. INDICATIONS : ORIF right ankle fracture. MEDICAL HISTORY : Unobtainable. SURGICAL HISTORY : Unobtainable. ENCOUNTER: Subsequent ACUITY: 2 days PAIN SCORE: Non-responsive. LOCATION: Right ankle. FINDINGS: Status post internal fixation of the distal tibia and fibula. There is good position and alignment of the bony structures. There is good alignment at the mortise joint. The hardware is grossly intact. CONCLUSION: Good position and alignment on this postoperative study. Kvng Perez MD on December 22, 2017 at 12:27 Board Certified Radiologist. This report was verified electronically.
[2017-12-22] MEDS ORDERED: KETOROLAC TROMETHAMINE 30 MG/ML (IVP) VIAL ONE (13:33)
[2017-12-22] MEDS: ACETAMINOPHEN 1000 MG/100 ML 100 ML IV SCH ×2 (14:00→20:29)
[2017-12-22] MEDS: KETOROLAC TROMETHAMINE 30 MG/ML (IVP) VIAL IV PUSH SCH ×2 (14:00→20:29)
--- NOTE | 2017-12-22 14:00 | HHI.PR ---
Addendum to Inpatient Note Additional Information Anesthesiologist called regarding Mr. Galindo. His O2 saturation went down to 80s, likely due to atelectasis. Anesthesiologist tried to use BiPAP which appeared to oxygenate patient well. However, patient is refusing to wear BiPAP. He does not meet criteria for intubation. We will put BiPAP orders if patient changes his mind. Also start frequent incentive spirometer use. Tanvi Shultz DO Dec 22, 2017 14:00
--- NOTE | 2017-12-22 14:33 | RADRPT ---
EXAM DATE/TIME: 12/22/2017 13:40 [facility] COMPARISON: No previous studies available for comparison. INDICATIONS : Shortness of breath; low O2 sats. MEDICAL HISTORY : Hypertension. DDD. SURGICAL HISTORY : Cholecystectomy. ENCOUNTER: Initial ACUITY: 1 day PAIN SCORE: 0/10 LOCATION: Bilateral chest FINDINGS: Linear apparent as are atelectatic changes are noted. There is no failure or pneumothorax. There is mild compensated cardiomegaly. CONCLUSION: Negative for pneumothorax or failure. Mild complete cardiomegaly. Atelectatic martino es both basces. Arsh Garza MD FACR on December 22, 2017 at 14:30 Board Certified Radiologist. This report was verified electronically.
[2017-12-22] MEDS ORDERED: RESP: ALBUTEROL 2.5 MG/3 ML NEB (PRN) INH (14:45)
[2017-12-22] MEDS ORDERED: ceFAZolin 2 GM PREMIX 50 ML IV SCH (18:00)
[2017-12-22] MEDS: ACETAMINOPHEN/HYDROcodone 325 MG/7.5 MG TAB PO PRN ×2 (18:24→22:40)
[2017-12-22] MEDS: GABAPENTIN 300 MG CAP PO SCH (20:29)
[2017-12-23 00:10] VITALS: BP 138/69; PULSE 60; RESP 18; TEMP 97.5; O2SAT 92
[2017-12-23 03:40] VITALS: BP 119/68; PULSE 78; RESP 18; TEMP 97; O2SAT 92
[2017-12-23] MEDS: ACETAMINOPHEN/HYDROcodone 325 MG/7.5 MG TAB PO PRN (06:00)
[2017-12-23] MEDS: ACETAMINOPHEN 1000 MG/100 ML 100 ML IV SCH ×3 (06:00→22:00)
[2017-12-23] MEDS: KETOROLAC TROMETHAMINE 30 MG/ML (IVP) VIAL IV PUSH SCH ×3 (06:01→22:00)
--- NOTE | 2017-12-23 06:32 | PD.ORT.PN ---
Subjective Subjective Remarks POD 1 s/p ORIF right ankle doing well. pain controlled. out of bed with assistance. Objective Vitals Vital Signs Date Time Temp Pulse Resp B/P (MAP) Pulse Ox O2 Delivery O2 Flow Rate FiO2 12/23/17 03:40 97.0 78 18 119/68 (85) 92 12/23/17 00:10 97.5 60 18 138/69 (92) 92 12/22/17 20:30 98.1 93 18 115/60 (78) 94 12/22/17 20:25 Nasal Cannula 4.00 12/22/17 16:00 96.3 84 18 117/68 (84) 100 12/22/17 15:14 92 Nasal Cannula 4.00 12/22/17 14:50 96.3 73 18 147/71 (96) 94 12/22/17 14:23 93 Nasal Cannula 4.00 Humidified 12/22/17 14:15 98.8 72 15 144/71 (95) 92 Nasal Cannula 4 12/22/17 14:00 73 15 125/68 (87) 92 Nasal Cannula 4 12/22/17 13:30 74 15 125/68 (87) 98 Bi-Pap 60 12/22/17 13:00 79 15 127/61 (83) 98 Bi-Pap 60 12/22/17 12:45 71 17 119/65 (83) 97 Bi-Pap 60 12/22/17 12:15 79 14 113/56 (75) 89 Bi-Pap 60 12/22/17 12:00 87 15 110/53 (72) 90 Simple Mask 6 12/22/17 11:45 82 15 117/62 (80) 93 Simple Mask 6 12/22/17 11:30 86 14 120/70 (87) 90 Simple Mask 6 12/22/17 11:13 98.2 91 14 115/71 (86) 89 Simple Mask 6 12/22/17 08:20 96.9 93 18 157/80 (105) 92 I/O 12/22/17 12/22/17 12/22/17 12/23/17 12/23/17 12/23/17 07:00 15:00 23:00 07:00 15:00 23:00 Intake Total 240 ml 500 ml 220 ml Output Total 250 ml 50 ml 250 ml Balance -10 ml 450 ml -30 ml Intake Oral 240 ml 220 ml Other 500 ml Output Urine Total 250 ml 250 ml Estimated Blood Loss 50 ml # Bowel Movements 0 0 Result Diagram: 12/22/1764012/22/17640 Objective Remarks RLE: +short leg splint. intact. nvi. point tender over greater troch. no pain with hip motion Assessment & Plan Assessment and Plan 1) Right Distal tib/fib fxs s/p ORIF - POD 1 -NWB -elevate -maintain splint at all times -CM for rehab eval -work with PT -potentially home if doing well with PT. likely will need rehab -f/u with [facility] or PA in 2 weeks Yassine Mccauley/[employer] SAIRA Dec 23, 2017 06:32
[2017-12-23 08:00] VITALS: BP 114/59; PULSE 69; PULSE 73; RESP 18; TEMP 96.1; O2SAT 93
[2017-12-23] MEDS: HYDROCHLOROTHIAZIDE 12.5 MG CAP PO SCH (08:37)
[2017-12-23] MEDS: SODIUM CHLORIDE 0.9% FLUSH 10 ML FLUSH IV FLUSH SCH ×2 (08:38→22:11)
[2017-12-23 12:00] VITALS: BP 117/59; PULSE 78; RESP 18; TEMP 96.7; O2SAT 93
[2017-12-23 16:00] VITALS: BP 117/60; PULSE 76; RESP 18; TEMP 96; O2SAT 96
--- NOTE | 2017-12-23 17:18 | HHI.PR ---
Subjective Remarks Patient has low oxygen saturation. Denies cp or sob. Pain is better. Objective Vitals Vital Signs Date Time Temp Pulse Resp B/P (MAP) Pulse Ox O2 Delivery O2 Flow Rate FiO2 12/23/17 12:00 96.7 78 18 117/59 (78) 93 12/23/17 09:29 91 Nasal Cannula 4.00 12/23/17 08:00 73 12/23/17 08:00 96.1 69 18 114/59 (77) 93 12/23/17 03:40 97.0 78 18 119/68 (85) 92 12/23/17 00:10 97.5 60 18 138/69 (92) 92 12/22/17 20:30 98.1 93 18 115/60 (78) 94 12/22/17 20:25 Nasal Cannula 4.00 I/O 12/22/17 12/22/17 12/22/17 12/23/17 12/23/17 12/23/17 07:00 15:00 23:00 07:00 15:00 23:00 Intake Total 240 ml 500 ml 220 ml 240 ml Output Total 250 ml 50 ml 250 ml 250 ml Balance -10 ml 450 ml -30 ml -10 ml Intake Oral 240 ml 220 ml 240 ml Other 500 ml Output Urine Total 250 ml 250 ml 250 ml Estimated Blood Loss 50 ml # Bowel Movements 0 0 0 Result Diagram: 12/22/17 0641 12/22/17 0641 Imaging Last Impressions Chest X-Ray 12/23/17 0000 Signed Impressions: Service Date/Time: November 16:54 - CONCLUSION: Mild patchy bilateral pulmonary opacity. No significant interval change. Berny Mares MD Lower Extremity CT 12/22/17 0000 Signed Impressions: Service Date/Time: Friday, December 22, 2017 07:44 - CONCLUSION: Trimalleolar fracture. Ankle mortise intact. Kehinde Camilo MD Ankle X-Ray 12/22/17 0000 Signed Impressions: Service Date/Time: Friday, December 22, 2017 10:28 - CONCLUSION: Good position and alignment on this postoperative study. Kvng Perez MD Objective Remarks AAOx3 nad PERRLA clear lungs BL abdomen soft, nt, nd RLE: +short leg splint. intact. nvi. point tender over greater troch. no pain with hip motion Procedures sp VARUN of Right distal tibia and fibula. Medications and IVs Current Medications Medications (Trade) Dose Ordered Sig/Emmy Route Start Time Stop Time Status Last Admin (NS Flush) 2 ml UNSCH PRN IV FLUSH 12/21/17 17:15 12/22/17 02:04 (NS Flush) 2 ml BID IV FLUSH 12/21/17 21:00 12/23/17 22:11 (Zofran Inj) 4 mg Q6H PRN IVP 12/21/17 17:15 (Narcan Inj) 0.4 mg UNSCH PRN IV PUSH 12/21/17 17:15 (Norvasc) 10 mg DAILY PO 12/22/17 09:00 12/23/17 08:37 (Neurontin) 300 mg HS PO 12/21/17 21:00 12/23/17 21:59 (Microzide) 12.5 mg DAILY PO 12/22/17 09:00 12/23/17 08:37 Lactated Ringer's 1,000 ml @ 30 mls/hr Q24H PRN IV 12/22/17 02:00 12/25/17 01:59 12/22/17 05:18 Sodium Chloride 500 ml @ 30 mls/hr [id number] PRN IV 12/22/17 02:00 12/25/17 01:59 (Lopressor) 25 mg [employer] PRN PO 12/22/17 02:00 12/25/17 01:59 (Betadine 5% Antisepsis Kit) 1 applic [employer] PRN EACH NARE 12/22/17 02:00 12/25/17 01:59 (Chlorhexidine 2% Cloth) 3 pack [employer] PRN TOPICAL 12/22/17 02:00 12/25/17 01:59 (NovoLIN R INJ) See Protocol Table ... [employer] PRN SQ 12/22/17 02:00 12/25/17 01:59 (Morphine Inj) 3 mg Q3H PRN IV PUSH 12/22/17 02:00 12/22/17 08:17 (Hazel 7.5-325 Mg) 1 tab Q3H PRN PO 12/22/17 11:00 12/23/17 06:00 (Morphine Inj) 4 mg Q3H PRN IV PUSH 12/22/17 11:00 Acetaminophen 100 ml @ 400 mls/hr Q8H IV 12/22/17 14:00 12/23/17 22:00 (Toradol Inj) 30 mg Q8H IV PUSH 12/22/17 14:00 12/27/17 06:01 12/23/17 22:00 (Albuterol Neb) 2.5 mg Q6HR NEB PRN INH 12/22/17 14:45 A/P Problem List: (1) Fall ICD Code: W19.XXXA - Unspecified fall, initial encounter Status: Acute (2) Closed right ankle fracture ICD Code: S82.891A - Other fracture of right lower leg, initial encounter for closed fracture Status: Resolved (3) Hypertension ICD Code: I10 - Essential (primary) hypertension Status: Chronic (4) Hypokalemia ICD Code: E87.6 - Hypokalemia (5) Hyponatremia ICD Code: E87.1 - Hypo-osmolality and hyponatremia Status: Resolved (6) Hypoxemia ICD Code: R09.02 - Hypoxemia Status: Acute Plan: Patient requiring elevated levels of O2 to keep appropriate oxygen saturation. Unclear etiology. DDx includes fuid overload, PE, pna, fat embolism. Continue supplemental o2 to keep o2 sat >92% Check cxr check 2 D echo Assessment and Plan Mr. Galindo is a 57 y/o male with hyperlipidemia, hypertension, and chronic back pain/DDD who presented to the ED on 12/21/16 following a fall at home resulting in progressively worsening right ankle pain, swelling, and inability to bear weight on right ankle. Mildly displaced fractures of the right distal tibia and fibula - right ankle x-ray in the ED showed mildly displaced fractures of the distal tibia and fibula - Continue pain control with IV Morphine, toradol and Hazel - 12/23 sp ORIF of distal Tibia and fibula - management as per ortho. Hypokalemia and mild hyponatremia - likely secondary to HCTZ - Initial K+ 3.3 and Na+ 135 - Replaced potassium orally - continuous cardiac telemetry to monitor for arrhythmias 12/23 Resolved Hypertension - resume home medications and monitor BP trends and adjust treatment as indicated 12/23 BP stable. Continue to monitor vital signs. DDD with sciatic pain - Continue Gabapentin DVT prophylaxis - SCDs/TEDs . Discussed Condition With Dr. Cristobal, patient, and RN . Discharge Planning Continue to monitor in the medical floor. Problem Qualifiers (1) Closed right ankle fracture: Qualified Codes: S82.891A - Other fracture of right lower leg, initial encounter for closed fracture Brice Montoya MD Dec 23, 2017 17:18
[2017-12-23] MEDS ORDERED: POTASSIUM CHLORIDE 10 MEQ CONTROLLED RELEASE TAB PO ONE (17:30)
[2017-12-23] MEDS ORDERED: FUROSEMIDE 20 MG TAB PO ONE (17:30)
--- NOTE | 2017-12-23 17:43 | RADRPT ---
EXAM DATE/TIME: 12/23/2017 16:54 [facility] COMPARISON: CHEST SINGLE AP, December 22, 2017, 13:40. INDICATIONS : Low O2 sats; Hypoxemia. MEDICAL HISTORY : Hypertension. DDD. SURGICAL HISTORY : Cholecystectomy. ENCOUNTER: Subsequent ACUITY: 2 days PAIN SCORE: 0/10 LOCATION: Bilateral chest FINDINGS: Single AP view of the chest. Mild patchy opacity at the lung bases bilaterally similar to the prior s tudy. Cardiomediastinal silhouette unchanged. No evidence of pleural effusion or pneumothorax. CONCLUSION: Mild patchy bilateral pulmonary opacity. No significant interval change. Berny Mares MD on December 23, 2017 at 17:39 Board Certified Radiologist. This report was verified electronically.
[2017-12-23 20:10] VITALS: BP 108/64; PULSE 70; RESP 17; TEMP 97.4; O2SAT 95
[2017-12-23] MEDS: GABAPENTIN 300 MG CAP PO SCH (21:59)
[2017-12-23 22:19] LABS: BICARBONATE 34.3 MEQ/L (21.0-32.0); BLOOD UREA NITROGEN 25 MG/DL (7-18); CALCIUM 7.8 MG/DL (8.5-10.1); CHLORIDE 105 MEQ/L (98-107); CREATININE 1.12 MG/DL (0.60-1.30); GLOMERULAR FILTRATION RATE 67 ML/MIN (>89); GLUCOSE,RANDOM 103 MG/DL (74-106); SODIUM (NA) 142 MEQ/L (136-145)
[2017-12-23] MEDS ORDERED: TAMSULOSIN HCL 0.4 MG CAP PO SCH (23:15)
[2017-12-24] VITALS (8 sets, daily range): BP systolic 104–124; BP diastolic 57–73; PULSE 67–77; RESP 17–19; TEMP 96–97.4; O2SAT 93–99
[2017-12-24] MEDS: KETOROLAC TROMETHAMINE 30 MG/ML (IVP) VIAL IV PUSH SCH ×3 (05:50→22:13)
[2017-12-24] MEDS: ACETAMINOPHEN 1000 MG/100 ML 100 ML IV SCH ×3 (05:51→22:13)
--- NOTE | 2017-12-24 06:31 | PD.ORT.PN ---
Subjective Subjective Remarks POD 2 s/p ORIF right ankle doing well. pain controlled. out of bed with assistance. Objective Vitals Vital Signs Date Time Temp Pulse Resp B/P (MAP) Pulse Ox O2 Delivery O2 Flow Rate FiO2 12/24/17 04:04 97.4 75 17 124/73 (90) 95 12/24/17 00:10 97.1 69 17 114/57 (76) 96 12/23/17 20:10 97.4 70 17 108/64 (79) 95 12/23/17 16:00 96.0 76 18 117/60 (79) 96 12/23/17 12:00 96.7 78 18 117/59 (78) 93 12/23/17 09:29 91 Nasal Cannula 4.00 12/23/17 08:00 73 12/23/17 08:00 96.1 69 18 114/59 (77) 93 I/O 12/23/17 12/23/17 12/23/17 12/24/17 12/24/17 12/24/17 07:00 15:00 23:00 07:00 15:00 23:00 Intake Total 840 ml 360 ml Output Total 250 ml 100 ml Balance 590 ml 260 ml Intake Oral 840 ml 360 ml Output Urine Total 250 ml 100 ml Bladder Scan Volume Amount 838 ml # Voids 2 # Bowel Movements 0 0 Result Diagram: 12/22/17 0641 12/23/17 2019 Objective Remarks RLE: +short leg splint. intact. nvi. point tender over greater troch. no pain with hip motion Assessment & Plan Assessment and Plan 1) Right Distal tib/fib fxs s/p ORIF - POD 2 -NWB -elevate -maintain splint at all times -CM for rehab eval -work with PT -plan for DC to rehab when arrangements made -ortho cleared for DC -f/u with [facility] or PA in 2 weeks Yassine Mccauley/First Taya CHÁVEZ Dec 24, 2017 06:31
[2017-12-24] MEDS: FUROSEMIDE 20 MG TAB PO SCH ×2 (08:25→18:03)
[2017-12-24] MEDS: HYDROCHLOROTHIAZIDE 12.5 MG CAP PO SCH (08:25)
[2017-12-24] MEDS: SODIUM CHLORIDE 0.9% FLUSH 10 ML FLUSH IV FLUSH SCH ×2 (09:00→20:25)
--- NOTE | 2017-12-24 10:48 | PD.PN.STU ---
Subjective Remarks Patient is a 57 y/o male w/ h/o hyperlipidemia, HTN, CBP/DDD, and BPH who is on hospital day 3 admitted for an ORIF of R ankle. Patient fell at home and injured ankle, x-ray on admission revealed displaced fractures of the distal tibia and fibula. Patient is s/p ORIF 12/22/17. Anaesthesia reported hypoxemia during surgery. Today patient complains of urinary retention and suprapubic discomfort and fullness. Patient reports not being able to urinate and requiring a straight cath last night. He does report urge to urinate, and intermittent pain in suprapubic area. Denies bowel movements, but does report passing gas. Denies any fevers chills sob, CP. Denies any history of urinary problems in the past. Objective Vitals Vital Signs Date Time Temp Pulse Resp B/P (MAP) Pulse Ox O2 Delivery O2 Flow Rate FiO2 12/24/17 07:32 96.0 67 19 104/67 (79) 94 12/24/17 04:04 97.4 75 17 124/73 (90) 95 12/24/17 00:10 97.1 69 17 114/57 (76) 96 12/23/17 20:10 97.4 70 17 108/64 (79) 95 12/23/17 16:00 96.0 76 18 117/60 (79) 96 12/23/17 12:00 96.7 78 18 117/59 (78) 93 I/O 12/23/17 12/23/17 12/23/17 12/24/17 12/24/17 12/24/17 07:00 15:00 23:00 07:00 15:00 23:00 Intake Total 840 ml 360 ml 360 ml Output Total 250 ml 100 ml 1550 ml Balance 590 ml 260 ml -1190 ml Intake Oral 840 ml 360 ml 360 ml Output Urine Total 250 ml 100 ml 1550 ml Bladder Scan Volume Amount 838 ml # Voids 2 # Bowel Movements 0 0 0 Result Diagram: 12/22/17 0641 12/23/17 2019 Other Results Allergies Coded Allergies Type Severity Reaction Last Updated Verified lisinopril Allergy Unknown Hives 12/21/17 No Recent Impressions Chest X-Ray 12/23/17 0000 Signed Impressions: Service Date/Time: November 16:54 - CONCLUSION: Mild patchy bilateral pulmonary opacity. No significant interval change. Berny Mares MD Lower Extremity CT 12/22/17 0000 Signed Impressions: Service Date/Time: Friday, December 22, 2017 07:44 - CONCLUSION: Trimalleolar fracture. Ankle mortise intact. Kehinde Camilo MD Chest X-Ray 12/22/17 0000 Signed Impressions: Service Date/Time: Friday, December 22, 2017 13:40 - CONCLUSION: Negative for pneumothorax or failure. Mild complete cardiomegaly. Atelectatic changes both basces. Arsh Garza MD FACR Ankle X-Ray 12/22/17 0000 Signed Impressions: Service Date/Time: Friday, December 22, 2017 10:28 - CONCLUSION: Good position and alignment on this postoperative study. Kvng Perez MD 12/22/17 12/22/17 12/23/17 12/23/17 12/24/17 12/24/17 06:00 18:00 06:00 18:00 06:00 18:00 Intake Total 240 ml 740 ml 220 ml 840 ml 360 ml 360 ml Output Total 100 ml 300 ml 250 ml 250 ml 100 ml 1550 ml Balance 140 ml 440 ml -30 ml 590 ml 260 ml -1190 ml Intake Oral 240 ml 240 ml 220 ml 840 ml 360 ml 360 ml Other 500 ml Output Urine Total 100 ml 250 ml 250 ml 250 ml 100 ml 1550 ml Estimated Blood Loss 50 ml Bladder Scan Volume Amount 838 ml # Voids 1 2 # Bowel Movements 0 0 0 0 0 0 Laboratory Tests Test 12/21/17 16:35 12/22/17 06:41 12/23/17 20:19 White Blood Count 10.5 TH/MM3 7.3 TH/MM3 Red Blood Count 4.74 MIL/MM3 4.22 MIL/MM3 Hemoglobin 12.7 GM/DL 11.6 GM/DL Hematocrit 38.9 % 34.5 % Mean Corpuscular Volume 81.9 FL 81.9 FL Mean Corpuscular Hemoglobin 26.8 PG 27.5 PG Mean Corpuscular Hemoglobin Concent 32.7 % 33.6 % Red Cell Distribution Width 14.8 % 14.6 % Platelet Count 243 TH/MM3 185 TH/MM3 Mean Platelet Volume 7.6 FL 7.3 FL Neutrophils (%) (Auto) 76.0 % 61.5 % Lymphocytes (%) (Auto) 13.1 % 23.9 % Monocytes (%) (Auto) 10.1 % 12.7 % Eosinophils (%) (Auto) 0.4 % 1.3 % Basophils (%) (Auto) 0.4 % 0.6 % Neutrophils # (Auto) 8.0 TH/MM3 4.5 TH/MM3 Lymphocytes # (Auto) 1.4 TH/MM3 1.7 TH/MM3 Monocytes # (Auto) 1.1 TH/MM3 0.9 TH/MM3 Eosinophils # (Auto) 0.0 TH/MM3 0.1 TH/MM3 Basophils # (Auto) 0.0 TH/MM3 0.0 TH/MM3 CBC Comment DIFF FINAL DIFF FINAL Differential Comment Prothrombin Time 10.6 SEC Prothromb Time International Ratio 1.0 RATIO Activated Partial Thromboplast Time 32.0 SEC Blood Urea Nitrogen 16 MG/DL 15 MG/DL 25 MG/DL Creatinine 0.98 MG/DL 0.87 MG/DL 1.12 MG/DL Random Glucose 108 MG/DL 112 MG/DL 103 MG/DL Calcium Level 9.5 MG/DL 8.1 MG/DL 7.8 MG/DL Sodium Level 135 MEQ/L 139 MEQ/L 142 MEQ/L Potassium Level 3.3 MEQ/L 3.3 MEQ/L 3.8 MEQ/L Chloride Level 99 MEQ/L 100 MEQ/L 105 MEQ/L Carbon Dioxide Level 27.3 MEQ/L 32.3 MEQ/L 34.3 MEQ/L Anion Gap 9 MEQ/L 7 MEQ/L 3 MEQ/L Estimat Glomerular Filtration Rate 79 ML/MIN 90 ML/MIN 67 ML/MIN Orders Procedure Category Date Status Time Ankle, Complete RADDIAG 12/21/17 Resulted ([id number]) Basic Metabolic Panel LAB 12/21/17 Complete (Bmp) 16:22 Complete Blood Count LAB 12/21/17 Complete With Diff 16:22 Prothrombin Time / LAB 12/21/17 Complete Inr (Pt) 16:22 Act Partial Throm LAB 12/21/17 Complete Time (Ptt) 16:22 Iv Access TX 12/21/17 Transmitted Insert/Monitor 16:22 Ecg Monitoring TX 12/21/17 Transmitted 16:22 Oximetry TX 12/21/17 Transmitted 16:22 Ondansetron Inj MED 12/21/17 Complete (Zofran Inj) 16:30 Sodium Chloride 0.9% MED 12/21/17 Complete Flush (Ns Flush) 16:30 Morphine Inj MED 12/21/17 Complete (Morphine Inj) 16:30 Splint Or Brace TX 12/21/17 Transmitted Apply/Monitor 16:37 Admit Order (Ed Use ADMITTING 12/21/17 Transmitted Only) Vital Signs (Adult) SHELLY 12/21/17 In Process 17:05 Activity Bed Rest SHELLY 12/21/17 In Process 17:[address]: Other SHELLY 12/21/17 In Process 17:05 Admit To Inpatient ADMITTING 12/21/17 Transmitted Vital Signs (Adult) SHELLY 12/21/17 Complete 17:05 Activity Bed Rest SHELLY 12/21/17 In Process 17:05 Cement Crusher Operator / SHELLY 12/21/17 In Process Telemetry 17:05 Sodium Chloride 0.9% MED 12/21/17 In Process Flush (Ns Flush) 17:15 Sodium Chloride 0.9% MED 12/21/17 In Process Flush (Ns Flush) 21:00 Ondansetron Inj MED 12/21/17 In Process (Zofran Inj) 17:15 Basic Metabolic Panel LAB 12/22/17 Complete (Bmp) 06:00 Complete Blood Count LAB 12/22/17 Complete With Diff 06:00 Case Management CONS 12/21/17 Transmitted Consult 17:05 Naloxone Inj (Narcan MED 12/21/17 In Process Inj) 17:15 Inpatient ADMITTING 12/21/17 Transmitted Certification Morphine Inj MED 12/21/17 Complete (Morphine Inj) 17:15 Consult Orthopedic CONS 12/21/17 Transmitted Amlodipine (Norvasc) MED 12/22/17 In Process 09:00 Gabapentin (Neurontin) MED 12/21/17 In Process 21:00 Hydrochlorothiazide MED 12/22/17 In Process (Microzide) 09:00 Fiberglass Short Leg ORTHO 12/21/17 Complete Splint Ad Fiberglass Sugartong ORTHO 12/21/17 Complete Sp Ad Sl Ice Cuff ORTHO 12/21/17 Complete (Hub Use Only)Inp Phy CONS 12/21/17 Transmitted Cons/Ref Diet Regular Basic DIET 12/21/17 Complete Dinner Potassium Chloride MED 12/21/17 Complete (Kcl) 20:30 Lactated Ringer's MED 12/22/17 In Process 1000 Ml Inj (Lr 1000 M 02:00 Sodium Chlorid 0.9% MED 12/22/17 In Process 500 Ml Inj (Ns 500 M 02:00 Metoprolol Tartrate MED 12/22/17 In Process (Lopressor) 02:00 Povidone Iod 5% MED 12/22/17 In Process Antisepsis Kit 02:00 Chlorhexidine 2% MED 12/22/17 In Process Cloth (Chlorhexidine 02:00 Insulin Human Regular MED 12/22/17 In Process Inj (Novolin R Inj 02:00 Morphine Inj MED 12/22/17 Complete (Morphine Inj) 02:00 Morphine Inj MED 12/22/17 In Process (Morphine Inj) 02:00 Sleeve, Knee SPD 12/22/17 Logged Sequential Abdifatah Pr 01:59 Diet Npo DIET 12/22/17 Complete Breakfast Diet Progression SHELLY 12/22/17 In Process Instructions 01:59 ^ Obtain SHELLY 12/22/17 In Process 01:59 ^ Lab Studies SHELLY 12/22/17 In Process 01:59 ^ Write Order SHELLY 12/22/17 In Process 01:59 Scd / Abdifatah / Foot Pump SHELLY 12/22/17 In Process 01:59 ^ Iv Setup For Or SHELLY 12/22/17 In Process 01:59 ^ Iv Piggyback For Or SHELLY 12/22/17 In Process 01:59 Bedside Glucose SHELLY 12/22/17 Complete 01:59 ^ Medication SHELLY 12/22/17 In Process Indications 01:59 Electrocardiogram CAV 12/22/17 Resulted Physician Name Changes ADMITTING 12/22/[address] Ankle W/O Contrast RADCT 12/22/17 Resulted Add Patient To ADMITTING 12/22/17 Transmitted Providers List Consent SHELLY 12/22/17 In Process 06:42 Acetaminophen 1000 MED 12/22/17 Complete Mg/100 Ml (Ofirmev 10 09:22 Vancomycin Inj MED 12/22/17 Complete (Vancomycin Inj) 09:22 Cefazolin 2 Gm Premix MED 12/22/17 Complete (Ancef 2 Gm Premix 09:23 Bupivacaine-Epineph MED 12/22/17 Complete 0.25% Inj (Sensorcai 09:23 Gentamicin Inj MED 12/22/17 Complete (Gentamicin Inj) 09:23 (Hub Use Only)Inp Phy CONS 12/22/17 Transmitted Cons/Ref Activity Oob With SHELLY 12/22/17 In Process Assistance 10:[address]: Other SHELLY 12/22/17 In Process 10:53 Neuro Checks SHELLY 12/22/17 In Process 10:53 Change Dressing SHELLY 12/22/17 In Process 10:53 Resp Incentive RSP 12/22/17 Complete Spirometry 10:53 Elevate SHELLY 12/22/17 In Process 10:53 ^ Gatch SHELLY 12/22/17 In Process 10:53 Diet 1800 Ada Cons DIET 12/22/17 Complete Carb Lunch ^ Saline Lock SHELLY 12/22/17 In Process 10:53 ^ Follow Up SHELLY 12/22/17 In Process 10:53 Case Management CONS 12/22/17 Transmitted Consult 10:53 Post-Op Orders (For MED 12/22/17 Complete Pharmacy) (Post-Op O 11:00 Cefazolin 2 Gm Premix MED 12/22/17 Complete (Ancef 2 Gm Premix 18:00 Acetamin-Hydrocod MED 12/22/17 In Process 325-7.5 Mg ([place] 7.5 11:00 Pt Activity PT 12/22/17 Logged 10:53 Orthopedic Clear For DISCHARGE 12/22/17 Transmitted Discharge 10:53 Scd&Teds/Non-Oper SHELLY 12/22/17 Complete Leg/Knee Hig 10:53 Morphine Inj MED 12/22/17 In Process (Morphine Inj) 11:00 Add Patient To ADMITTING 12/22/17 Transmitted Providers List 10:53 *Albuterol Neb MED 12/22/17 Complete (*Albuterol Neb 11:15 Fentanyl Inj MED 12/22/17 Complete (Fentanyl Inj) 11:21 Misc Nursing MED 12/22/17 Complete Information 11:10 Ankle, Limited RADDIAG 12/22/17 Resulted (Ap&Lat) Fluoroscopy,Port Up RADDIAG 12/22/17 Taken To 1 Hr Chest, Single Ap RADDIAG 12/22/17 Resulted Ketorolac Inj MED 12/22/17 Complete (Toradol Inj) 13:33 Acetaminophen 1000 MED 12/22/17 In Process Mg/100 Ml (Ofirmev 10 14:00 Ketorolac Inj MED 12/22/17 In Process (Toradol Inj) 14:00 Fiberglass Short Leg ORTHO 12/22/17 Complete Splint Ad Fiberglass Sugartong ORTHO 12/22/17 Complete Sp Ad Sl Resp Incentive RSP 12/22/17 Complete Spirometry Resp Bipap / Cpap Non RSP 12/22/17 Complete Invas Vt Anticoagulant Alert SHELLY 12/22/17 In Process ^ Sling SHELLY 12/22/17 In Process Resp Oxygen Ruben C RSP 12/22/17 Logged Titrat 1-4 L Albuterol Neb MED 12/22/17 In Process (Albuterol Neb) 14:45 Class Iv Pacu Ea 30 [facility] 12/22/17 Complete MIN General/Pacu [facility] 12/22/17 Complete Post Anesthesia Oxygen [facility] 12/22/17 Complete Post Anesthesia [facility] 12/22/17 Complete Aerosol Physician Name Changes ADMITTING 12/22/17 Transmitted Diet Regular Basic DIET 12/22/17 Transmitted Dinner Instruction SHELLY 12/22/17 In Process 20:02 Trauma Office Use [facility] 12/21/17 Transmitted Only 07:27 Sling Cradle Arm ORTHO 12/23/17 Complete (Hub Use Only)Inp Phy CONS 12/23/17 Transmitted Cons/Ref Lidocaine Pf 1% Inj MED 12/22/17 Complete (Xylocaine-Mpf 1% In 12:00 Rocuronium Inj MED 12/22/17 Complete (Zemuron Inj) 12:00 Phenyleph/Ns 1000 MED 12/22/17 Complete Mcg/10ml Syr (Neosynep 12:00 Dexamethasone Inj MED 12/22/17 Complete (Decadron Inj) 12:00 Ondansetron Inj MED 12/22/17 Complete (Zofran Inj) 12:00 Propofol 200 Mg/20 Ml MED 12/22/17 Complete Inj (Diprivan 200 12:00 Basic Metabolic Panel LAB 12/23/17 Complete (Bmp) 16:37 Basic Metabolic Panel LAB 12/24/17 In Process (Bmp) 06:00 Cbc No Diff, Includes LAB 12/24/17 In Process Plts 06:00 Chest, Single Ap RADDIAG 12/23/17 Resulted Furosemide (Lasix) MED 12/23/17 Complete 17:30 Potassium Chloride MED 12/23/17 Complete (Kcl) 17:30 Furosemide (Lasix) MED 12/24/17 In Process 09:00 Tamsulosin (Flomax) MED 12/23/17 In Process 23:15 ^ Straight Catheter SHELLY 12/23/17 In Process 23:57 Echo 2d Comp With ECH 12/24/17 Logged Doppler Hemoglobin (Hgb) A1c LAB 12/24/17 In Process 06:00 Vital Signs Date Time Temp Pulse Resp B/P (MAP) Pulse Ox O2 Delivery O2 Flow Rate FiO2 12/24/17 07:32 96.0 67 19 104/67 (79) 94 12/24/17 04:04 97.4 75 17 124/73 (90) 95 12/24/17 00:10 97.1 69 17 114/57 (76) 96 12/23/17 20:10 97.4 70 17 108/64 (79) 95 12/23/17 16:00 96.0 76 18 117/60 (79) 96 12/23/17 12:00 96.7 78 18 117/59 (78) 93 12/23/17 09:29 91 Nasal Cannula 4.00 12/23/17 08:00 73 12/23/17 08:00 96.1 69 18 114/59 (77) 93 12/23/17 03:40 97.0 78 18 119/68 (85) 92 12/23/17 00:10 97.5 60 18 138/69 (92) 92 12/22/17 20:30 98.1 93 18 115/60 (78) 94 12/22/17 20:25 Nasal Cannula 4.00 12/22/17 16:00 96.3 84 18 117/68 (84) 100 12/22/17 15:14 92 Nasal Cannula 4.00 12/22/17 14:50 96.3 73 18 147/71 (96) 94 12/22/17 14:23 93 Nasal Cannula 4.00 Humidified 12/22/17 14:15 98.8 72 15 144/71 (95) 92 Nasal Cannula 4 12/22/17 14:00 73 15 125/68 (87) 92 Nasal Cannula 4 12/22/17 13:30 74 15 125/68 (87) 98 Bi-Pap 60 12/22/17 13:00 79 15 127/61 (83) 98 Bi-Pap 60 12/22/17 12:45 71 17 119/65 (83) 97 Bi-Pap 60 12/22/17 12:15 79 14 113/56 (75) 89 Bi-Pap 60 12/22/17 12:00 87 15 110/53 (72) 90 Simple Mask 6 12/22/17 11:45 82 15 117/62 (80) 93 Simple Mask 6 12/22/17 11:30 86 14 120/70 (87) 90 Simple Mask 6 12/22/17 11:13 98.2 91 14 115/71 (86) 89 Simple Mask 6 12/22/17 08:20 96.9 93 18 157/80 (105) 92 12/22/17 03:50 81 12/22/17 03:30 99.2 85 18 110/69 (83) 92 12/21/17 23:55 90 12/21/17 23:30 98.6 91 17 144/87 (106) 96 12/21/17 19:40 97.1 108 18 142/88 (106) 94 12/21/17 18:43 12/21/17 17:39 18 12/21/17 17:38 104 18 147/82 (103) 99 Room Air 12/21/17 16:36 99 12/21/17 15:24 98.6 104 16 127/69 (88) 98 Room Air Imaging Last 48 hours Impressions Chest X-Ray 12/23/17 0000 Signed Impressions: Service Date/Time: November 16:54 - CONCLUSION: Mild patchy bilateral pulmonary opacity. No significant interval change. Berny Mares MD Objective Remarks GENERAL: WN/WD obese male in no apaprent distress observed sitting up in bed. SKIN: Warm and dry. HEAD: Atraumatic. Normocephalic. EYES: Pupils equal and round. No scleral icterus. No injection or drainage. ENT: No nasal bleeding or discharge. Mucous membranes pink and moist. NECK: Trachea midline. No JVD. CARDIOVASCULAR: Regular rate and rhythm. 2/6 new systolic murmur auscultated at L sternal border RESPIRATORY: No accessory muscle use. Clear to auscultation. Breath sounds equal bilaterally. GASTROINTESTINAL: Abdomen soft, nondistended with mild tenderness on palpation of suprapubic area. No rebound or guarding. Fullness appreciated in suprapubic area MUSCULOSKELETAL: Extremities without clubbing, cyanosis, or edema. No obvious deformities. RLE in cast below knee NEUROLOGICAL: Awake and alert. No obvious cranial nerve deficits. Motor grossly within normal limits. Five out of 5 muscle strength in the arms and legs. Normal speech. PSYCHIATRIC: Appropriate mood and affect; insight and judgment normal. Medications and IVs Current Medications Medications (Trade) Dose Ordered Sig/Emmy Route Start Time Stop Time Status Last Admin (NS Flush) 2 ml UNSCH PRN IV FLUSH 12/21/17 17:15 12/22/17 02:04 (NS Flush) 2 ml BID IV FLUSH 12/21/17 21:00 12/23/17 22:11 (Zofran Inj) 4 mg Q6H PRN IVP 12/21/17 17:15 (Narcan Inj) 0.4 mg UNSCH PRN IV PUSH 12/21/17 17:15 (Norvasc) 10 mg DAILY PO 12/22/17 09:00 12/24/17 08:25 (Neurontin) 300 mg HS PO 12/21/17 21:00 12/23/17 21:59 (Microzide) 12.5 mg DAILY PO 12/22/17 09:00 12/24/17 08:25 Lactated Ringer's 1,000 ml @ 30 mls/hr Q24H PRN IV 12/22/17 02:00 12/25/17 01:59 12/22/17 05:18 Sodium Chloride 500 ml @ 30 mls/hr [id number] PRN IV 12/22/17 02:00 12/25/17 01:59 (Lopressor) 25 mg VENEER JOINTER OFFBEARER PRN PO 12/22/17 02:00 12/25/17 01:59 (Betadine 5% Antisepsis Kit) 1 applic VENEER JOINTER OFFBEARER PRN EACH NARE 12/22/17 02:00 12/25/17 01:59 (Chlorhexidine 2% Cloth) 3 pack VENEER JOINTER OFFBEARER PRN TOPICAL 12/22/17 02:00 12/25/17 01:59 (NovoLIN R INJ) See Protocol Table ... VENEER JOINTER OFFBEARER PRN SQ 12/22/17 02:00 12/25/17 01:59 (Morphine Inj) 3 mg Q3H PRN IV PUSH 12/22/17 02:00 12/22/17 08:17 ([place] 7.5-325 Mg) 1 tab Q3H PRN PO 12/22/17 11:00 12/23/17 06:00 (Morphine Inj) 4 mg Q3H PRN IV PUSH 12/22/17 11:00 Acetaminophen 100 ml @ 400 mls/hr Q8H IV 12/22/17 14:00 12/24/17 05:51 (Toradol Inj) 30 mg Q8H IV PUSH 12/22/17 14:00 12/27/17 06:01 12/24/17 05:50 (Albuterol Neb) 2.5 mg Q6HR NEB PRN INH 12/22/17 14:45 (Lasix) 20 mg BID@,18 PO 12/24/17 09:00 12/24/17 08:25 (Flomax) 0.4 mg HS PO 12/23/17 23:15 12/24/17 00:58 A/P Assessment and Plan Patient is a 57 y/o male with history of hyperlipidemia, HTN, CBP/DDD, and BPH who was admitted for displaced fractures of the R distal tibia and fibula. Patient is s/p ORIF 12/22/17. 1)Mildly displaced fractures of the right distal tibia and fibula - s/p ORIF . Patient has been discharged by ortho to rehab and will f/u in 2 weeks. Ortho recommends NWB, elevate, and splint at all times 2) Hyperkalemia and mild hypernatremia - likely 2/2 HCTZ use, has resolved 12/23 3) Hypertension - BP stable. continue at home medication regiment 4) DDD - managed with gabapentin 5) Urinary retention - required straight cath last night to empty bladder and still is unable to urinate today. Has history of BPH and on flomax 0.4 but denies any history of urinary issues. Reports urge to urinate. Most likely 2/2 to anesthesia from procedure. Patient encouraged to attempt to urinate and report if any success. If still unable to will place george cath and consider bladder u/s and consult urology. 6) Acute hypoxemia - Continues to sat in low 90s on 4L O2 NC but denies any difficulty breathing or chest pain. Currently on lasix 20 mg BID for possible fluid overload. CXR revealed mild bilateral pulmonary opacity. HCO3 rising to 34.3. Will get ABG and CTA to r/o possible PE. DVT Prophlyaxis with SCDs and ABDIFATAHs Yung Murillo M3 Dec 24, 2017 10:48
--- NOTE | 2017-12-24 11:30 | HHI.PR ---
Subjective Remarks Patient states unable to urinate. Last night had to be straight catheterized - 1500 ml urine drained Still requiring oxygen - currently at 4 liters nasal canula denies cough, fevers. Objective Vitals Vital Signs Date Time Temp Pulse Resp B/P (MAP) Pulse Ox O2 Delivery O2 Flow Rate FiO2 12/24/17 07:32 96.0 67 19 104/67 (79) 94 12/24/17 04:04 97.4 75 17 124/73 (90) 95 12/24/17 00:10 97.1 69 17 114/57 (76) 96 12/23/17 20:10 97.4 70 17 108/64 (79) 95 12/23/17 16:00 96.0 76 18 117/60 (79) 96 12/23/17 12:00 96.7 78 18 117/59 (78) 93 I/O 12/23/17 12/23/17 12/23/17 12/24/17 12/24/17 12/24/17 07:00 15:00 23:00 07:00 15:00 23:00 Intake Total 840 ml 360 ml 360 ml Output Total 250 ml 100 ml 1550 ml Balance 590 ml 260 ml -1190 ml Intake Oral 840 ml 360 ml 360 ml Output Urine Total 250 ml 100 ml 1550 ml Bladder Scan Volume Amount 838 ml # Voids 2 # Bowel Movements 0 0 0 Result Diagram: 12/22/17 0641 12/23/17 2019 Imaging Last Impressions Chest X-Ray 12/23/17 0000 Signed Impressions: Service Date/Time: November 16:54 - CONCLUSION: Mild patchy bilateral pulmonary opacity. No significant interval change. Berny Mares MD Lower Extremity CT 12/22/17 0000 Signed Impressions: Service Date/Time: Friday, December 22, 2017 07:44 - CONCLUSION: Trimalleolar fracture. Ankle mortise intact. Kehinde Camilo MD Ankle X-Ray 12/22/17 0000 Signed Impressions: Service Date/Time: Friday, December 22, 2017 10:28 - CONCLUSION: Good position and alignment on this postoperative study. Kvng Perez MD Objective Remarks AAOx3 nad PERRLA clear lungs BL abdomen soft, nt, nd. obese abdomen and difficult for bladder fullness however there is some dicomfort on palpation of lower abdomen. RLE: +short leg splint. intact. nvi. point tender over greater troch. no pain with hip motion Procedures sp VARUN of Right distal tibia and fibula. Medications and IVs Current Medications Medications (Trade) Dose Ordered Sig/Emmy Route Start Time Stop Time Status Last Admin (NS Flush) 2 ml UNSCH PRN IV FLUSH 12/21/17 17:15 12/22/17 02:04 (NS Flush) 2 ml BID IV FLUSH 12/21/17 21:00 12/23/17 22:11 (Zofran Inj) 4 mg Q6H PRN IVP 12/21/17 17:15 (Narcan Inj) 0.4 mg UNSCH PRN IV PUSH 12/21/17 17:15 (Norvasc) 10 mg DAILY PO 12/22/17 09:00 12/24/17 08:25 (Neurontin) 300 mg HS PO 12/21/17 21:00 12/23/17 21:59 (Microzide) 12.5 mg DAILY PO 12/22/17 09:00 12/24/17 08:25 Lactated Ringer's 1,000 ml @ 30 mls/hr Q24H PRN IV 12/22/17 02:00 12/25/17 01:59 12/22/17 05:18 Sodium Chloride 500 ml @ 30 mls/hr [id number] PRN IV 12/22/17 02:00 12/25/17 01:59 (Lopressor) 25 mg MATERIAL HANDLER PRN PO 12/22/17 02:00 12/25/17 01:59 (Betadine 5% Antisepsis Kit) 1 applic MATERIAL HANDLER PRN EACH NARE 12/22/17 02:00 12/25/17 01:59 (Chlorhexidine 2% Cloth) 3 pack MATERIAL HANDLER PRN TOPICAL 12/22/17 02:00 12/25/17 01:59 (NovoLIN R INJ) See Protocol Table ... MATERIAL HANDLER PRN SQ 12/22/17 02:00 12/25/17 01:59 (Morphine Inj) 3 mg Q3H PRN IV PUSH 12/22/17 02:00 12/22/17 08:17 ([place] 7.5-325 Mg) 1 tab Q3H PRN PO 12/22/17 11:00 12/23/17 06:00 (Morphine Inj) 4 mg Q3H PRN IV PUSH 12/22/17 11:00 Acetaminophen 100 ml @ 400 mls/hr Q8H IV 12/22/17 14:00 12/24/17 05:51 (Toradol Inj) 30 mg Q8H IV PUSH 12/22/17 14:00 12/27/17 06:01 12/24/17 05:50 (Albuterol Neb) 2.5 mg Q6HR NEB PRN INH 12/22/17 14:45 (Lasix) 20 mg BID@,18 PO 12/24/17 09:00 12/24/17 08:25 (Flomax) 0.4 mg HS PO 12/23/17 23:15 12/24/17 00:58 Urinary Catheter: No Vascular Central Line Catheter: No A/P Problem List: (1) Fall ICD Code: W19.XXXA - Unspecified fall, initial encounter Status: Acute (2) Closed right ankle fracture ICD Code: S82.891A - Other fracture of right lower leg, initial encounter for closed fracture Status: Resolved (3) Hypertension ICD Code: I10 - Essential (primary) hypertension Status: Chronic (4) Hypokalemia ICD Code: E87.6 - Hypokalemia (5) Hyponatremia ICD Code: E87.1 - Hypo-osmolality and hyponatremia Status: Resolved (6) Hypoxemia ICD Code: R09.02 - Hypoxemia Status: Acute Plan: Patient requiring elevated levels of O2 to keep appropriate oxygen saturation. Unclear etiology. DDx includes fuid overload, PE, pna, fat embolism. Continue supplemental o2 to keep o2 sat >92% Check cxr check 2 D echo 12/24 Echo pending. CXR reviewed by me shows mild BL pulmonary opacity. Will order a CT pulmonary angiogram to r/o PE. check doppler ultrasound of right leg r/o DVT. (7) Urinary retention ICD Code: R33.9 - Retention of urine, unspecified Status: Acute Plan: Insert george catheter. will increase flomax dose to 0.4 mg po bid. Assessment and Plan Mr. Galindo is a 57 y/o male with hyperlipidemia, hypertension, and chronic back pain/DDD who presented to the ED on 12/21/16 following a fall at home resulting in progressively worsening right ankle pain, swelling, and inability to bear weight on right ankle. Mildly displaced fractures of the right distal tibia and fibula - right ankle x-ray in the ED showed mildly displaced fractures of the distal tibia and fibula - Continue pain control with IV Morphine, toradol and [place] - 12/23 sp ORIF of distal Tibia and fibula - management as per ortho. Hypokalemia and mild hyponatremia - likely secondary to HCTZ - Initial K+ 3.3 and Na+ 135 - Replaced potassium orally - continuous cardiac telemetry to monitor for arrhythmias 12/23 Resolved Hypertension - resume home medications and monitor BP trends and adjust treatment as indicated BP stable. Continue to monitor vital signs. DDD with sciatic pain - Continue Gabapentin DVT prophylaxis - SCDs/TEDs . Discussed Condition With Dr. Cristobal, patient, and RN . Discharge Planning Continue to monitor in the medical floor. Problem Qualifiers (1) Closed right ankle fracture: Qualified Codes: S82.891A - Other fracture of right lower leg, initial encounter for closed fracture Brice Montoya MD Dec 24, 2017 11:30
[2017-12-24] MEDS ORDERED: IOHEXOL 350 MG/ML 10 ML VIAL (for RAD DIAG) IVCONTRAST ONE (13:31)
--- NOTE | 2017-12-24 13:39 | RADRPT ---
EXAM DATE/TIME: 12/24/2017 13:22 [place] COMPARISON: No previous studies available for comparison. INDICATIONS : Short of breath. IV CONTRAST: 72 cc Omnipaque 350 (iohexol) IV RADIATION DOSE: 23.23 CTDIvol (mGy) MEDICAL HISTORY : Cardiovascular disease. Hypertension. SURGICAL HISTORY : None. ENCOUNTER: Initial ACUITY: 1 day PAIN SCALE: 4/10 LOCATION: Bilateral chest TECHNIQUE: Volumetric scanning of the chest was performed using a pulmonary embolism protocol MIP images were re constructed. Using automated exposure control and adjustment of the mA and/or kV according to patien t size, radiation dose was kept as low as reasonably achievable to obtain optimal diagnostic quality images. DICOM format image data is available electronically for review and comparison. Follow-up recommendations for detected pulmonary nodules are based at a minimum on nodule size and pa tient risk factors according to Fleischner Society Guidelines. FINDINGS: PULMONARY ARTERIES: No filling defects are seen in the pulmonary arteries through the segmental level. LUNGS: Linear areas of consolidation involving both lung bases consistent with atelectasis. No infiltrates. No bronchiectasis. A 5 mm smoothly marginated nodule within the posterior basilar segment left lower lobe. 6 mm nodule within the deep costophrenic sulcus on the right. PLEURAE: There is no pleural thickening or pleural effusion. MEDIASTINUM: There is good visualization of the great vessels of the middle mediastinum. No evidence of mediastin al or hilar adenopathy/mass. MUSCULOSKELETAL: Old left-sided rib fractures. A degenerative thoracic spine. MISCELLANEOUS: The visualized upper abdominal organs demonstrate no acute abnormality. CONCLUSION: 1. No pulmonary embolus. 2. Small bilateral basilar pulmonary nodules. The largest measures 6 mm on the right. Current Fleisch ner guidelines suggest a followup CT in 6-12 months. 3. Bibasilar atelectasis. Rancho Franco Jr., MD on December 24, 2017 at 13:31 Board Certified Radiologist. This report was verified electronically.
[2017-12-24 17:32] LABS: HEMOGLOBIN A1C 6.1 % (4.3-6.0)
[2017-12-24] MEDS: GABAPENTIN 300 MG CAP PO SCH (20:25)
[2017-12-24] MEDS: TAMSULOSIN HCL 0.4 MG CAP PO SCH (20:25)
[2017-12-25] VITALS (9 sets, daily range): BP systolic 109–132; BP diastolic 63–69; PULSE 65–83; RESP 18–19; TEMP 95.4–96.8; O2SAT 94–99
[2017-12-25] MEDS: ACETAMINOPHEN/HYDROcodone 325 MG/7.5 MG TAB PO PRN (01:46)
[2017-12-25] MEDS: KETOROLAC TROMETHAMINE 30 MG/ML (IVP) VIAL IV PUSH SCH ×3 (05:17→21:01)
[2017-12-25] MEDS: ACETAMINOPHEN 1000 MG/100 ML 100 ML IV SCH ×3 (05:17→21:02)
--- NOTE | 2017-12-25 06:31 | PD.ORT.PN ---
Subjective Subjective Remarks Pain controlled. Is anticipating discharge to rehabilitation today Objective Vitals Vital Signs Date Time Temp Pulse Resp B/P (MAP) Pulse Ox O2 Delivery O2 Flow Rate FiO2 12/25/17 04:00 96.7 70 18 114/67 (83) 95 12/25/17 00:00 96.5 75 18 130/69 (89) 95 12/24/17 20:28 94 Nasal Cannula 4.00 12/24/17 20:00 96.0 76 18 118/70 (86) 99 12/24/17 16:11 16 12/24/17 15:47 97.1 75 19 118/65 (82) 94 12/24/17 15:02 16 12/24/17 11:28 97.4 77 19 119/61 (80) 93 12/24/17 11:25 93 Nasal Cannula 4.00 12/24/17 07:32 96.0 67 19 104/67 (79) 94 I/O 12/24/17 12/24/17 12/24/17 12/25/17 12/25/17 12/25/17 07:00 15:00 23:00 07:00 15:00 23:00 Intake Total 360 ml 850 ml 480 ml 480 ml Output Total 1550 ml 1450 ml 850 ml 650 ml Balance -1190 ml -600 ml -370 ml -170 ml Intake Oral 360 ml 850 ml 480 ml 480 ml Output Urine Total 1550 ml 1450 ml 850 ml 650 ml Bladder Scan Volume Amount 838 ml # Bowel Movements 0 1 0 Result Diagram: 12/22/17 0641 12/23/172018 Objective Remarks RLE: +short leg splint. intact. nvi. point tender over greater troch. no pain with hip motion Assessment & Plan Assessment and Plan 1) Right Distal tib/fib fxs s/p ORIF - POD 3 -NWB -elevate -maintain splint at all times -CM for rehab eval -work with PT -plan for DC to rehab when arrangements made -ortho cleared for DC -f/u with David or [facility] in 2 weeks Dereck Martin Jr. Dec 25, 2017 06:31
[2017-12-25] MEDS: FUROSEMIDE 20 MG TAB PO SCH (11:17)
[2017-12-25] MEDS: SODIUM CHLORIDE 0.9% FLUSH 10 ML FLUSH IV FLUSH SCH ×2 (11:17→20:59)
[2017-12-25] MEDS: HYDROCHLOROTHIAZIDE 12.5 MG CAP PO SCH (11:17)
[2017-12-25] MEDS: AMOXICILLIN/CLAVULANATE K 875 MG TAB PO SCH ×2 (11:33→21:01)
[2017-12-25] MEDS ORDERED: FURO20TA PO (13:40)
--- NOTE | 2017-12-25 13:41 | HHI.DCPOC ---
Discharge Care Plan Diagnosis: (1) Closed right ankle fracture (2) Fall (3) Hypoxemia (4) Hyponatremia (5) Urinary retention (6) Fluid overload Goals to Promote Your Health * To prevent worsening of your condition and complications * To maintain your health at the optimal level Directions to Meet Your Goals Take your medications as prescribed Follow your dietary instruction Follow activity as directed Keep your appointments as scheduled Take your immunizations and boosters as scheduled If your symptoms worsen call your PCP, if no PCP go to Urgent Care Center or Emergency Room Smoking is Dangerous to Your Health. Avoid second hand smoke Call the 24-hour hour crisis hotline for domestic abuse at Brice Montoya MD Dec 25, 2017 13:41
--- NOTE | 2017-12-25 16:27 | ECHRPT ---
Indication: SOB CONCLUSIONS Mildly dilated left ventricle. Wall thickness is measured at the upper limits of normal. The left ventricular systolic function is normal with an estimated ejection fraction in the range of 55- 60%. Aortic valve sclerosis is present. Trace aortic valve regurgitation. The pulmonary valve is not well visualized. BP: 107 / 67 HR: 67 Rhythm: MEASUREMENTS (Male / Female) Normal Values Technical Quality:Technically difficult study 2D ECHO LV Diastolic Diameter PLAX 5.0 cm 4.2 - 5.9 / 3.9 - 5.3 cm LV Systolic Diameter PLAX 3.5 cm IVS Diastolic Thickness 1.1 cm 0.6 - 1.0 / 0.6 - 0.9 cm LVPW Diastolic Thickness 0.8 cm 0.6 - 1.0 / 0.6 - 0.9 cm LV Relative Wall Thickness 0.4 LA Systolic Diameter LX 4.1 cm 3.0 - 4.0 / 2.7 - 3.8 cm DOPPLER AV Peak Velocity 253.0 cm/s AV Peak Gradient 25.6 mmHg Mitral E Point Velocity 79.0 cm/s Mitral A Point Velocity 77.1 cm/s Mitral E to A Ratio 1.0 TR Peak Velocity 137.0 cm/s TR Peak Gradient 7.5 mmHg FINDINGS LEFT VENTRICLE Mildly dilated left ventricle. Wall thickness is measured at the upper limits of normal. The left ventricular systolic function is normal with an estimated ejection fraction in the range of 55- 60%. RIGHT VENTRICLE Normal right ventricular size and systolic function. LEFT ATRIUM The left atrial size is normal. RIGHT ATRIUM The right atrial size is normal. ATRIAL SEPTUM Normal atrial septal thickness without atrial level shunting by limited color doppler interrogation. AORTA The aortic root and proximal ascending aorta are normal in size on limited imaging. MITRAL VALVE Structurally normal mitral valve. No mitral valve stenosis or regurgitation. AORTIC VALVE Aortic valve sclerosis is present. Trace aortic valve regurgitation. TRICUSPID VALVE Structurally normal tricuspid valve. No tricuspid valve stenosis or regurgitation. PULMONARY VALVE The pulmonary valve is not well visualized. VESSELS The inferior vena cava is normal in size. PERICARDIUM No pericardial effusion. Jenaro Najera MD, FACC (Electronically Signed) Final Date:25 December 2017 16:27
[2017-12-25] MEDS: GABAPENTIN 300 MG CAP PO SCH (20:59)
[2017-12-25] MEDS: TAMSULOSIN HCL 0.4 MG CAP PO SCH (21:01)
[2017-12-25 22:44] LABS: HEMATOCRIT 31.4 % (39.0-51.0); HEMOGLOBIN 10.5 GM/DL (13.0-17.0); MEAN CELL VOLUME 81.4 FL (80.0-100.0); MEAN CORPUSCULAR HEMOGLOBIN 27.2 PG (27.0-34.0); MEAN CORPUSCULAR HGB CONC 33.4 % (32.0-36.0); PLATELET COUNT 223 TH/MM3 (150-450); RED BLOOD COUNT 3.86 MIL/MM3 (4.50-5.90); RED CELL DISTRIBUTION WIDTH 14.4 % (11.6-17.2); WHITE BLOOD COUNT 9.3 TH/MM3 (4.0-11.0)
[2017-12-26] VITALS: BP 124/62; PULSE 74; RESP 16; TEMP 96.6; O2SAT 95
[2017-12-26 03:52] VITALS: PULSE 74
[2017-12-26 04:00] VITALS: BP 142/67; PULSE 73; RESP 18; TEMP 98.2; O2SAT 95
[2017-12-26] MEDS: KETOROLAC TROMETHAMINE 30 MG/ML (IVP) VIAL IV PUSH SCH ×2 (05:19→14:00)
[2017-12-26] MEDS: ACETAMINOPHEN 1000 MG/100 ML 100 ML IV SCH ×2 (05:20→12:44)
[2017-12-26 08:00] VITALS: BP 126/72; PULSE 79; RESP 18; TEMP 97.7; O2SAT 96
[2017-12-26 08:10] VITALS: PULSE 97
[2017-12-26] MEDS: AMOXICILLIN/CLAVULANATE K 875 MG TAB PO SCH (08:59)
[2017-12-26] MEDS ORDERED: FUROSEMIDE 20 MG TAB PO SCH (09:00)
[2017-12-26] MEDS: SODIUM CHLORIDE 0.9% FLUSH 10 ML FLUSH IV FLUSH SCH (09:00)
[2017-12-26] MEDS: HYDROCHLOROTHIAZIDE 12.5 MG CAP PO SCH (09:10)
[2017-12-26] MEDS ORDERED: RESP: ALBUTEROL 2.5 MG/IPRATROPIUM 0.5 MG NEB (SCH) NEB ONE (10:15)
[2017-12-26 11:09] LABS: HEMOGLOBIN A1C 6.1 % (4.3-6.0)
[2017-12-26 12:00] VITALS: BP 129/69; PULSE 82; RESP 18; TEMP 96.9; O2SAT 97
[2017-12-26] MEDS ORDERED: TAMSULOSIN HCL 0.4 MG CAP PO SCH (12:00)
--- NOTE | 2017-12-26 12:42 | MB ---
cc: JANNY LEAL DATE OF CONSULTATION: 12/26/2017 REASON FOR CONSULTATION: HISTORY OF PRESENT ILLNESS: Ms. Galindo is a pleasant 57-year-old male who sustained a right ankle fracture requiring surgical intervention to repair his fracture. He has a history of BPH with nocturia x4 and a weak stream prior to his admission. He was on Flomax 0.4 milligrams p.o. q hs. He does not have an outside urologist. He has failed a void trial x1 postoperatively and the Fernando catheter was replaced yesterday. He was placed on two flomax, however, he is also on narcotics and has limited ability to ambulate. This most likely is the reason for his ongoing urinary retention. PAST MEDICAL HISTORY: 1. Hypertension. 2. Hyperlipidemia. 3. Chronic back pain with BPH with obstruction. PAST SURGICAL HISTORY: 1. Skin graft to the left side of the face after mistry. 2. Cholecystectomy. 3. Bilateral cataract surgery. 4. Recent right lower leg surgery. ALLERGIES: LISINOPRIL MEDICATIONS: Please refer to the chart. FAMILY HISTORY: History of diabetes but denies any family history of prostate cancer. SOCIAL HISTORY: Denies smoking and drinking. OCCUPATIONAL HISTORY: Works as a world renowned chef and restaurant owner. REVIEW OF SYSTEMS: Denies chest pain, shortness of breath, abdominal pain, headache, bleeding disorder, nocturia x4 with a weak stream and incomplete emptying. He denies any skin lesions, psychiatric problems. The remainder of the review of systems were reviewed and is negative. PHYSICAL EXAMINATION: VITAL SIGNS: Temperature is 97.7, heart rate 79, 18 respiratory rate, 126/72 blood pressure. GENERAL: Well-developed, well-nourished 57 year-old male in no acute distress. HEENT: Head is normocephalic, atraumatic. Pupils equal round, regular, react to light. Extraocular muscles intact. NECK: Supple. HEART: Regular rate and rhythm. LUNGS: Clear. ABDOMEN: Soft, non-tender, non-distended. GENITOURINARY: Normal phallus, Fernando catheter in place. Testes are descended. EXTREMITIES: Right ankle splint in place. NEUROLOGIC: Cranial nerves II-XII grossly intact. PSYCHIATRIC: Generalized mood. LABORATORY VALUES: White count 9.3, hemoglobin 10.5, hematocrit 31.4, platelet count 223, sodium 142, potassium 3.8, chloride 105, CO2 34.3, BUN 25, creatinine 1.1, glucose 103. PT is 10.6, INR is 1.0, PTT is 32.0. ASSESSMENT: The patient is a 57-year-old male with history of BPH with obstruction and urinary retention postoperatively. RECOMMENDATIONS Continue double Flomax 1 tablet p.o. b.i.d., maintain Fernando catheter for one week. We will arrange for a void trial in one week either at [facility] or in the office, wean narcotics as appropriate and encourage ambulation as tolerated. Thank you for the consult and allowing me to participate in the care of this patient. Janny LOPEZ /11:38 AM /12:29 PM
[2017-12-26] MEDS ORDERED: RESP: ALBUTEROL 2.5 MG/IPRATROPIUM 0.5 MG NEB (SCH) NEB (14:00)
== END 2017-12-26 16:41 | DRG 493 ==
LOC: NEPK 15:00 → NEDA 17:07 → N06B 18:43 → N06A 20:04
PROVIDERS: ADMIT Hospitalist; ATTEND Hospitalist
PROC: 0QSJ04Z Reposition Right Fibula with Internal Fixation Device, Open Approach (ICD-10-PCS; 2017-12-22)
PROC: 0QSG04Z Reposition Right Tibia with Internal Fixation Device, Open Approach (ICD-10-PCS; principal; 2017-12-22 09:46)
PROC: 0T9B70Z Drainage of Bladder with Drainage Device, Via Natural or Artificial Opening (ICD-10-PCS; 2017-12-25)
DX: S82.391A Other fracture of lower end of right tibia, initial encounter for closed fracture (principal); E87.1 Hypo-osmolality and hyponatremia; I10 Essential (primary) hypertension; J98.11 Atelectasis; S82.61XA Displaced fracture of lateral malleolus of right fibula, initial encounter for closed fracture; W01.0XXA Fall on same level from slipping, tripping and stumbling without subsequent striking against object, initial encounter; M54.9 Dorsalgia, unspecified; G89.29 Other chronic pain; E87.6 Hypokalemia; E78.00 Pure hypercholesterolemia, unspecified; T50.2X5A Adverse effect of carbonic-anhydrase inhibitors, benzothiadiazides and other diuretics, initial encounter; N40.1 Benign prostatic hyperplasia with lower urinary tract symptoms; E87.70 Fluid overload, unspecified; R09.02 Hypoxemia; R33.9 Retention of urine, unspecified; Y92.009 Unspecified place in unspecified non-institutional (private) residence as the place of occurrence of the external cause
CPT/HCPCS: 71045; 71275; 73600; 73610; 73700; 76000; 80048; 83036; 85025; 85027; 85610; 85730; 93005; 93306; 94150; 94664; 96374; 96375; C1713; J0131; J0690; J1100; J1580; J1885; J2270; J2370; J2405; J3010; J3370; J7120; J7613; Q9967

== ENCOUNTER 2018-01-04 04:55 | Inpatient (IN) | payer OTHER, MEDICARE ==
[~2018-01-04] VITALS: Ht 190.5 cm; Wt 115.4 kg
[2018-01-04] VITALS (9 sets, daily range): BP systolic 103–152; BP diastolic 55–78; PULSE 66–109; RESP 14–20; TEMP 93.3–98.6; O2SAT 93–98
[~2018-01-04 04:55] MED LIST changes: +ATOR10TA15 PO; -CYCL10TA PO; +FURO20TA PO; +GABA300C5 PO; +HYDR-3583 PO; -HYDR12.57 PO; -IBUP1TAB5 PO; -MULTCAP14; -NAPR500 PO; +TAMS5CAP PO; +WALKER/ADULT/FO1 MIS; +XARE10TA PO
[2018-01-04] MEDS ORDERED: SODIUM CHLOR 0.9% 1000 ML INJ 1,000 ML IV ONE (05:30)
[2018-01-04 06:02] LABS: AUTOMATED NEUTROPHIL # 10.9 TH/MM3 (1.8-7.7); BASOPHIL # 0.1 TH/MM3 (0-0.2); BASOPHIL % 0.6 % (0.0-2.0); EOSINOPHIL # 0.1 TH/MM3 (0-0.4); EOSINOPHIL % 0.8 % (0.0-4.0); HEMATOCRIT 26.8 % (39.0-51.0); HEMOGLOBIN 9.1 GM/DL (13.0-17.0); LYMPH % 12.5 % (9.0-44.0); LYMPHOCYTE # 1.7 TH/MM3 (1.0-4.8); MEAN CELL VOLUME 80.3 FL (80.0-100.0); MEAN CORPUSCULAR HEMOGLOBIN 27.3 PG (27.0-34.0); MEAN CORPUSCULAR HGB CONC 33.9 % (32.0-36.0); MEAN PLATELET VOLUME 6.4 FL (7.0-11.0); MONO % 4.1 % (0.0-8.0); MONOCYTE # 0.5 TH/MM3 (0-0.9); PLATELET COUNT 338 TH/MM3 (150-450); RED BLOOD COUNT 3.34 MIL/MM3 (4.50-5.90); RED CELL DISTRIBUTION WIDTH 14.6 % (11.6-17.2); WHITE BLOOD COUNT 13.3 TH/MM3 (4.0-11.0)
--- NOTE | 2018-01-04 06:05 | PD ---
HPI Chief Complaint: Syncope/Near-Syncope Time Seen by Provider: 05:27 Travel History International Travel<30 days: No Contact w/Intl Traveler<30days: No Traveled to known affect area: No History of Present Illness HPI The patient is a 57 year old male who presents to the [facility] emergency department with a history of developing abdominal bloating in the evening today. The patient reports that he then awoke with increased abdominal cramping in the center of his abdomen, below the umbilicus with a sensation that he needed to move his bowels. When he tried to get up to go to the bathroom he had a syncopal event. The patient did not fall or injure himself. The patient is currently at a rehabilitation facility related to a recent right ankle fracture from a fall. The patient reports that his right ankle seems to be healing well. The pain is controlled. The patient reports that he is followed by for this. The patient was incontinent of stool and route to this facility. The patient's systolic blood pressure was reportedly in the 90s. The patient became pale, diaphoretic and short of breath prior to the syncopal event. He denies any prior history of heart disease. He denies any history of peptic ulcer disease or diverticulosis. The patient's stool was noted to be dark when he arrived in the emergency department. It is Hemoccult positive. The patient has been on antibiotic recently at the rehabilitation facility. The patient is also on Xarelto to prevent blood clots postop. The patient denies having any chest pain or chest pressure. He denies having any recent fevers, cough or congestion. He reports that he does have a catheter in place as he has not been able to urinate without having one. The patient has been given 2 trials of having the catheter removed, the most recent one was on Wednesday, however he was still not able to urinate on his own. The catheter was replaced on Wednesday and he reports that his urine has been very dark. The patient reports having nausea without vomiting. The patient denies having any one-sided weakness, slurred speech, facial droop, difficulty with word finding ability, or vision changes. PFSH Past Medical History Narrative Medical The patient's past medical history is significant for benign prostatic hypertrophy with urinary retention, history of recent right ankle fracture status post ORIF, history of hyperlipidemia, chronic back pain, hypertension. Cancer: No Cardiovascular Problems: Yes (HTN) Genitourinary: No Hypertension: Yes Musculoskeletal: Yes (DDD) Neurologic: No Psychiatric: No Reproductive: No Respiratory: No Tetanus Vaccination: < 5 Years Influenza Vaccination: No Past Surgical History Narrative Surgical The patient's past surgical history is significant for right ankle ORIF, skin grafts on the face in 2002, history of cholecystectomy, bilateral cataract surgery, history of colonoscopy 2 years ago that was reportedly unremarkable. Eye Surgery: Yes (CATARACT REMOVAL) Genitourinary Surgery: Yes (GALLBLADDER REMOVED) Other Surgery: Yes Social History Alcohol Use: No Tobacco Use: No Substance Use: No Allergies-Medications (Allergen,Severity, Reaction): Coded Allergies: lisinopril (Unverified Allergy, Unknown, Hives, 12/21/17) Pt. remembered reaction during another appointment. Reported Meds & Prescriptions Reported Meds & Active Scripts Active Furosemide 20 Mg Tab 20 Mg PO DAILY Xarelto (Rivaroxaban) 10 Mg Tab 10 Mg PO DAILY 14 Days Hydrocodone-Acetaminophen 10-325 mg Tab 1 Tab PO Q4H PRN Reported Flomax (Tamsulosin HCl) 0.4 Mg Cap 0.4 Mg PO HS Atorvastatin (Atorvastatin Calcium) 10 Mg Tab 10 Mg PO HS Gabapentin 300 Mg Cap 900 Mg PO HS [prosvent] Amlodipine (Amlodipine Besylate) 10 Mg Tab 10 Mg PO DAILY Review of Systems Except as stated in HPI: all other systems reviewed are Neg General / Constitutional: No: Fever Eyes: No: Visual changes HENT: Positive: Lightheadedness, No: Headaches Cardiovascular: Positive: Syncope, Dyspnea on exertion, No: Chest Pain or Discomfort Respiratory: Positive: Shortness of Breath, No: Cough Gastrointestinal: Positive: Nausea, Diarrhea, Abdominal Pain, Changes in Bowel Habits, Indigestion, No: Vomiting, Hematemesis, Hematochezia, Loss of Appetite Genitourinary: Positive: Hesitancy, Other (Dark color to the urine), No: Dysuria Musculoskeletal: No: Pain Skin: No Rash Neurologic: Positive: Weakness (Generalized weakness), Syncope, No: Focal Abnormalities, Change in Mentation, Slurred Speech, Sensory Disturbance Psychiatric: No: Depression Endocrine: No: Polydipsia Hematologic/Lymphatic: No: Easy Bruising Physical Exam Narrative General: The patient is a well-developed well-nourished male, pale appearing and diaphoretic on arrival. Head and Neck exam: Head is normocephalic atraumatic. Eyes: EOMI, pupils are equal round and reactive to light. Nose: Midline septum with pink mucous membranes Mouth: Dentition unremarkable. Moist mucus membranes. Posterior oropharynx is not erythematous. No tonsillar hypertrophy. Uvula midline. Airway patent. Neck: No palpable lymphadenopathy. No nuchal rigidity. No thyromegaly. Cardiovascular: Regular rate and rhythm without murmurs, gallops, or rubs. Lungs: Clear to auscultation bilaterally. No wheezes, rhonchi, or rales. Abdomen: Soft, with reported tenderness on palpation along the suprapubic area and bilateral lower quadrants of the abdomen, no other tenderness on palpation of the upper quadrants of the abdomen. No specific point tenderness on palpation of her McBurney's point. Negative Traylor sign.. No guarding, rebound, or rigidity. Normal bowel sounds are audible Extremities: No clubbing, cyanosis, or edema. 2+ pulses in all 4 extremities. No calf tenderness on palpation. The patient has a splint in place on the right ankle. The patient's toes are visible and pink in coloration with less than 3 second capillary refill, intact sensation over all digits. Back: No spinous process tenderness to palpation. No costovertebral angle tenderness to palpation. Neurologic Exam: Grossly nonfocal. Skin Exam: No rash noted. Intact skin that is warm and slightly diaphoretic Data Data Last Documented VS Vital Signs Date Time Temp Pulse Resp B/P (MAP) Pulse Ox O2 Delivery O2 Flow Rate FiO2 01/04/18 05:19 97 98 Room Air 01/04/18 05:05 20 125/72 (89) 01/04/18 05:01 98.0 Orders Orders Electrocardiogram (01/04/18 05:28) Complete Blood Count With Diff (01/04/18 05:28) Comprehensive Metabolic Panel (01/04/18 05:28) Creatine Kinase (Cpk) (01/04/18 05:28) Ckmb (Isoenzyme) Profile (01/04/18 05:28) Troponin I (01/04/18 05:28) B-Type Natriuretic Peptide (01/04/18 05:28) Prothrombin Time / Inr (Pt) (01/04/18 05:28) Act Partial Throm Time (Ptt) (01/04/18 05:28) Lipase (01/04/18 05:28) Urinalysis - C+S If Indicated (01/04/18 05:28) Magnesium (Mg) (01/04/18 05:28) Enteric Path (Stool) (01/04/18 05:28) C Diff Toxin Pcr (01/04/18 05:28) Chest, Single Ap (01/04/18 05:28) Iv Access Insert/Monitor (01/04/18 05:28) Ecg Monitoring (01/04/18 05:28) Oximetry (01/04/18 05:28) Type And Screen (01/04/18 05:28) Stool Wbc (Leukocytes) (01/04/18 05:28) Sodium Chlor 0.9% 1000 Ml Inj (Ns 1000 M (01/04/18 05:30) Sodium Chloride 0.9... W/Pantoprazole In (01/04/18 06:28) Sodium Chloride 0.9... W/Pantoprazole In (01/04/18 06:28) Red Blood Cells (Rbc) (01/04/18 06:05) Sodium Chlor 0.9% 250 Ml Inj (Ns 250 Ml (01/04/18 06:15) Ct Abd/Pel W Iv Contrast(Rout) (01/04/18 06:35) Admit To Inpatient (01/04/18 ) Vital Signs (Adult) SHELLY.QSHIFT (01/04/18 06:39) Activity Bed Rest (01/04/18 06:39) Intake + Output SHELLY.QSHIFT (01/04/18 06:39) Diet Npo (01/04/18 Breakfast) Sodium Chloride 0.9% Flush (Ns Flush) (01/04/18 06:45) Sodium Chloride 0.9% Flush (Ns Flush) (01/04/18 09:00) Ondansetron Inj (Zofran Inj) (01/04/18 06:45) Pantoprazole Inj (Protonix Inj) (01/04/18 09:00) Hgb & Hct (01/04/18 06:39) Hgb & Hct (01/04/18 12:39) Complete Blood Count With Diff (01/05/18 06:00) Basic Metabolic Panel (Bmp) (01/05/18 06:00) Consult Gastroenterology (01/04/18 ) Scd Bilateral/Knee High SHELLY.BID (01/04/18 06:39) Inpatient Certification (01/04/18 ) Admit Order (Ed Use Only) (01/04/18 06:41) Labs Laboratory Tests Test 01/04/18 05:15 01/04/18 05:30 01/04/18 06:40 Stool C. difficile Toxin (PCR) NEGATIVE Stl C. difficile Toxin Epiderm 027 PRESUMPTIVE NEGATIVE White Blood Count 13.3 TH/MM3 Red Blood Count 3.34 MIL/MM3 Hemoglobin 9.1 GM/DL Hematocrit 26.8 % Mean Corpuscular Volume 80.3 FL Mean Corpuscular Hemoglobin 27.3 PG Mean Corpuscular Hemoglobin Concent 33.9 % Red Cell Distribution Width 14.6 % Platelet Count 338 TH/MM3 Mean Platelet Volume 6.4 FL Neutrophils (%) (Auto) 82.0 % Lymphocytes (%) (Auto) 12.5 % Monocytes (%) (Auto) 4.1 % Eosinophils (%) (Auto) 0.8 % Basophils (%) (Auto) 0.6 % Neutrophils # (Auto) 10.9 TH/MM3 Lymphocytes # (Auto) 1.7 TH/MM3 Monocytes # (Auto) 0.5 TH/MM3 Eosinophils # (Auto) 0.1 TH/MM3 Basophils # (Auto) 0.1 TH/MM3 CBC Comment DIFF FINAL Differential Comment Prothrombin Time 11.9 SEC Prothromb Time International Ratio 1.2 RATIO Activated Partial Thromboplast Time 25.6 SEC Blood Urea Nitrogen 52 MG/DL Creatinine 0.88 MG/DL Random Glucose 160 MG/DL Total Protein 6.6 GM/DL Albumin 2.9 GM/DL Calcium Level 7.9 MG/DL Magnesium Level 1.9 MG/DL Alkaline Phosphatase 81 U/L Aspartate Amino Transf (AST/SGOT) 8 U/L Alanine Aminotransferase (ALT/SGPT) 12 U/L Total Bilirubin 0.5 MG/DL Sodium Level 138 MEQ/L Potassium Level 4.2 MEQ/L Chloride Level 106 MEQ/L Carbon Dioxide Level 21.6 MEQ/L Anion Gap 10 MEQ/L Estimat Glomerular Filtration Rate 89 ML/MIN Total Creatine Kinase 40 U/L Troponin I LESS THAN 0.02 NG/ML B-Type Natriuretic Peptide 4 PG/ML Lipase 117 U/L Urine Color DARYA Urine Turbidity HAZY Urine pH 5.5 Urine Specific [place] 1.024 Urine Protein 30 mg/dL Urine Glucose (UA) NEG mg/dL Urine Ketones TRACE mg/dL Urine Occult Blood LARGE Urine Nitrite NEG Urine Bilirubin NEG Urine Urobilinogen LESS THAN 2.0 MG/DL Urine Leukocyte Esterase SMALL Urine RBC /hpf Urine WBC 10 /hpf Urine Bacteria OCC /hpf Urine Mucus FEW /lpf Microscopic Urinalysis Comment CULTURE INDICATED MDM Medical Decision Making Medical Screen Exam Complete: Yes Emergency Medical Condition: Yes Medical Record Reviewed: Yes Interpretation(s) Last Impressions Abdomen/Pelvis CT 01/04/18 0635 Signed Impressions: Service Date/Time: Thursday, January 04, 2018 07:21 - CONCLUSION: 1. No acute process. 2. Bilateral renal cysts. 3. Status post cholecystectomy. 4. Right testicle within the inguinal canal above the scrotum. Luc Verduzco MD Chest X-Ray 01/04/18 0528 Signed Impressions: Service Date/Time: Thursday, January 04, 2018 05:33 - CONCLUSION: Underinflation with mild atelectasis at the lung bases. No acute cardiopulmonary abnormality is identified. Baudilio Jo MD Ankle X-Ray 01/04/18 0000 Signed Impressions: Service Date/Time: Thursday, January 04, 2018 17:01 - CONCLUSION: Good position and alignment on this postoperative study. Kvng Perez MD Differential Diagnosis Diverticular bleed, versus AVM, versus peptic ulcer bleed, versus gastritis, versus C. difficile colitis Narrative Course During the course of the patient's emergency department visit, the patient's history, examination, and differential diagnosis were reviewed with the patient. The patient was placed on a teletypesetter monitor with oximetry and frequent blood pressure monitoring. The patient had IV access obtained and blood work sent for analysis. The patient had an EKG done on arrival. The patient's EKG reveals a sinus rhythm heart rate of 98, QRS duration is 94 ms, QTC [address] segment elevation is noted. T waves are inverted in aVL. The patient was initially provided Protonix 80 mg IV followed by a Protonix drip , normal saline 1 L IV fluid bolus. The patient was typed and screened for blood. The patient's laboratory studies were reviewed and remarkable for a white count of 13.3, hemoglobin 9.1, platelets 338 with neutrophils 82, CMP is remarkable for a BUN of 52 consistent with GI bleed, glucose 160, calcium 7.9, AST 8, cardiac enzymes within normal limits, BNP 4, albumin 2.9, lipase 117. PT 11.9, PTT 25.6, Urinalysis shows 30 protein, trace ketones, large occult blood, small leukocyte Estrace, innumerable RBCs, 10 WBCs, occasional bacteria. Radiology studies were reviewed and remarkable for acute cardiopulmonary disease , underinflation with atelectasis, CT scan of the abdomen pelvis shows no acute abnormality, testicle up in the inguinal canal on the right. Consideration was made to reversing the patient's anticoagulation with [facility] , however at this time the patient does not meet criteria for massive hemorrhage. This was further discussed with the admitting team and they will monitor the patient closely and consider giving K [facility]ra active bleeding continues. The patient's results were discussed with the patient, including the plan of care. I explained that further testing and/ or monitoring is indicated based on the patient's history, examination, and/ or laboratory findings. Therefore, I recommended admission for additional evaluation. The patient expressed understanding and was agreeable with this plan. The patient was admitted to the hospital in stable condition and sent to a bed under the care of the [facility]. Critical Care Narrative Aggregate critical care time was 38 minutes. Time to perform other separately billable procedures was not included in the critical care time. My time did not include minutes spent treating any other patients simultaneously or on activities that did not directly contribute to the patient's treatment. The services I provided to this patient were to treat and/or prevent clinically significant deterioration that could result in: Cardiovascular collapse from hemorrhagic shock, versus fluid overload from crystalloid resuscitation with respiratory failure. I provided critical care services requiring my management, as noted below: Chart data review, documentation time, medication orders and management, vital sign assessments/reviewing monitor data, ordering and reviewing lab tests, ordering and interpreting/reviewing x-rays and diagnostic studies, care of the patient and discussion of the patient with the admitting physicians. Physician Communication Physician Communication The patient's case including history, pertinent physical examination findings, and laboratory studies were discussed with Dr. Cristobal. It was agreed that the patient would be admitted to the [facility] service. Diagnosis Primary Impression: GI bleed Qualified Codes: K92.2 - Gastrointestinal hemorrhage, unspecified Additional Impression: Anemia due to acute blood loss Admitting Information Admitting Physician Requests: Admit Sultana Blake MD Jan 04, 2018 06:05
[2018-01-04 06:08] LABS: INTERNATIONAL NORMALIZED RATIO 1.2 RATIO; PROTHROMBIN TIME - PATIENT 11.9 SEC (9.8-11.6)
--- NOTE | 2018-01-04 06:08 | RADRPT ---
EXAM DATE/TIME: 01/04/2018 05:33 [facility] COMPARISON: CHEST SINGLE AP, December 23, 2017, 16:54. INDICATIONS : Syncopal episode- General weakness. MEDICAL HISTORY : Hypertension. SURGICAL HISTORY : Cholecystectomy. ENCOUNTER: Initial ACUITY: 1 day PAIN SCORE: 0/10 LOCATION: Bilateral chest FINDINGS: Portable AP view of the chest demonstrates a normal-sized cardiac silhouette. No effusion, consolidat ion, or pneumothorax is visualized. The bones and soft tissues demonstrate no acute abnormality. Lung s are underinflated. CONCLUSION: Underinflation with mild atelectasis at the lung bases. No acute cardiopulmonary abnormality is ident ified. Baudilio Jo MD on January 04, 2018 at 6:06 Board Certified Radiologist. This report was verified electronically.
[2018-01-04] MEDS ORDERED: SODIUM CHLOR 0.9% 250 ML INJ 250 ML IV ONE (06:15)
[2018-01-04 06:17] LABS: ALBUMIN 2.9 GM/DL (3.4-5.0); ALT (GPT) 12 U/L (12-78); AST (GOT) 8 U/L (15-37); BICARBONATE 21.6 MEQ/L (21.0-32.0); BLOOD UREA NITROGEN 52 MG/DL (7-18); CALCIUM 7.9 MG/DL (8.5-10.1); CHLORIDE 106 MEQ/L (98-107); CREATININE 0.88 MG/DL (0.60-1.30); GLOMERULAR FILTRATION RATE 89 ML/MIN (>89); GLUCOSE,RANDOM 160 MG/DL (74-106); MAGNESIUM 1.9 MG/DL (1.5-2.5); SODIUM (NA) 138 MEQ/L (136-145)
[2018-01-04 06:21] LABS: ALKALINE PHOSPHATASE 81 U/L (45-117); TOTAL BILIRUBIN ADULT 0.5 MG/DL (0.2-1.0); TOTAL PROTEIN 6.6 GM/DL (6.4-8.2); TROPONIN I LESS THAN 0.02 NG/ML (0.02-0.05)
[2018-01-04] MEDS ORDERED: PANTOPRAZOLE INJ 80 MG in SODIUM CHLORIDE 0.9% INJ 35 ML IV ONE (06:28)
[2018-01-04] MEDS ORDERED: PANTOPRAZOLE INJ 80 MG in SODIUM CHLORIDE 0.9% INJ 100 ML IV SCH (06:28)
[2018-01-04] MEDS ORDERED: SODIUM CHLORIDE 0.9% FLUSH 10 ML FLUSH IV FLUSH PRN (06:45)
[2018-01-04 07:03] LABS: BACTERIA, URINE OCC /hpf; BILIRUBIN, URINE NEG (NEG); BLOOD, URINE LARGE (NEG); GLUCOSE,URINE NEG (NEG); KETONE, URINE TRACE mg/dL (NEG); MUCUS URINE FEW /lpf (OCC); NITRITE,URINE NEG (NEG); PH, URINE 5.5 (5.0-8.5); URINE COLOR AMBER (YELLW/STRAW); URINE LEUKOCYTE ESTERASE SMALL (NEG)
[2018-01-04] MEDS ORDERED: IOHEXOL 350 MG/ML 10 ML VIAL (for RAD DIAG) IVCONTRAST ONE (07:33)
--- NOTE | 2018-01-04 07:46 | RADRPT ---
EXAM DATE/TIME: 01/04/2018 07:21 [facility] COMPARISON: No previous studies available for comparison. INDICATIONS : Mid abdominal pain today. IV CONTRAST: 95 cc Omnipaque 350 (iohexol) IV ORAL CONTRAST: No oral contrast ingested. RADIATION DOSE: 12.49 CTDIvol (mGy) MEDICAL HISTORY : Hypertension. SURGICAL HISTORY : Cholecystectomy. ENCOUNTER: Initial ACUITY: 1 day PAIN SCALE: 7/10 LOCATION: Mid abdomen TECHNIQUE: Volumetric scanning of the abdomen and pelvis was performed. Using automated exposure control and ad justment of the mA and/or kV according to patient size, radiation dose was kept as low as reasonably achievable to obtain optimal diagnostic quality images. DICOM format image data is available electro nically for review and comparison. FINDINGS: LOWER LUNGS: The visualized lower lungs are clear. LIVER: Homogeneous density without lesion. There is no dilation of the biliary tree. Post cholecystectomy c lips and mild scarring is identified in the gallbladder fossa. SPLEEN: Normal size without lesion. PANCREAS: Within normal limits. KIDNEYS: Normal in size and shape. There is no mass, stone or hydronephrosis. Simple cysts are identified in each kidney. A 1.7 cm cyst is identified in the midpole of the right kidney and a 2.3 cm cyst in the midpole the left kidney. ADRENAL GLANDS: Within normal limits. VASCULAR: There is no aortic aneurysm. BOWEL/MESENTERY: The stomach, small bowel, and colon demonstrate no acute abnormality. There is no free intraperitone al air or fluid. ABDOMINAL WALL: Within normal limits. RETROPERITONEUM: There is no lymphadenopathy. BLADDER: Fernando catheter is noted in place. REPRODUCTIVE: The right testicle is identified within the inguinal canal above the scrotum. INGUINAL: There is no lymphadenopathy or hernia. MUSCULOSKELETAL: Significant arthropathy involving the lower lumbar facet joints and right hip. CONCLUSION: 1. No acute process. 2. Bilateral renal cysts. 3. Status post cholecystectomy. 4. Right testicle within the inguinal canal above the scrotum. Luc Verduzco MD on January 04, 2018 at 7:36 Board Certified Radiologist. This report was verified electronically.
--- NOTE | 2018-01-04 07:57 | HHI.HP ---
[facility] Unknown Admission Diagnosis GI bleed on xarelto Diagnoses: (1) GI bleed Diagnosis: Principal Chief Complaint: I passed out. Travel History International Travel<30 Days: No Contact w/Intl Traveler <30 Da: No Traveled to Known Affected Are: No History of Present Illness patient is a 57 y/o male with history of recent ankle fracture- s/p ORIF, on Xarelto- presented to ER after he passed out earlier this morning. he says that he had some abdominal bloating yesterday. earlier this morning when he was trying to get out of the chair to go to bathroom he became lightheaded and then passed out. he denies any nausea or vomiting. his stool was dark with low- normal SBP at the time of arrival to ER. he denies any chest pain. he says that he's still feeling lightheaded. Review of Systems Constitutional: DENIES: Fever, Weight loss, Chills, Night Sweats Eyes: DENIES: Blurred vision, Diplopia, Vision loss, Double Vision Ears, nose, mouth, throat: DENIES: Tinnitus, Vertigo, Throat pain, Epistaxis Respiratory: DENIES: Apneas, Cough, Snoring, Wheezing, Hemoptysis, Sputum production, Shortness of breath Cardiovascular: DENIES: Chest pain, Palpitations, Syncope, Dyspnea on Exertion , PND, Lower Extremity Edema, Orthopnea, Claudication Gastrointestinal: COMPLAINS OF: Black stools, DENIES: Abdominal pain, Bloody stools, Constipation, Diarrhea, Nausea, Vomiting, Difficulty Swallowing, Anorexia Genitourinary: DENIES: Urinary frequency, Urgency, Hematuria, Dysuria Musculoskeletal: DENIES: Joint pain, Muscle aches, Stiffness, Joint Swelling Integumentary: DENIES: Rash Neurologic: DENIES: Abnormal gait, Headache, Localized weakness, Paresthesias, Seizures, Speech Problems, Tremor, Poor Balance Psychiatric: DENIES: Anxiety, Confusion, Mood changes, Depression, Hallucinations, Agitation, Suicidal Ideation, Homicidal Ideation, Delusions Past Family Social History Past Medical History hypertension Past Surgical History cholecystectomy/ ankle ORIF/cataract surgery. Reported Medications amlodipine/HCTZ/Flomax/Xarelto Allergies: Coded Allergies: lisinopril (Unverified Allergy, Unknown, Hives, 12/21/17) Pt. remembered reaction during another appointment. Active Ordered Medications Inpatient Medications Ondansetron HCl (Zofran Inj) 4 mg Q6H PRN IV PUSH NAUSEA; Start 01/04/18 at 06: 45 Pantoprazole Sodium (Protonix Inj) 40 mg DAILY IV PUSH ; Start 01/04/18 at 09:00 Pantoprazole Sodium 80 mg/ Sodium Chloride 100 ml @ 10 mls/hr Q10H IV Last administered on 01/04/18at 06:42; Start 01/04/18 at 06:28; Stop 01/04/18 at 06:44; Status DC Sodium Chloride (NS Flush) 2 ml BID IV FLUSH ; Start 01/04/18 at 09:00 Family History heart attack in father. Social History no smoking or drinking. Physical Exam Vital Signs Vital Signs Date Time Temp Pulse Resp B/P (MAP) Pulse Ox O2 Delivery O2 Flow Rate FiO2 01/04/18 06:49 93 19 123/67 (85) 95 Room Air 01/04/18 05:19 97 98 Room Air 01/04/18 05:05 96 20 125/72 (89) 98 Room Air 01/04/18 05:01 98.0 66 20 125/72 (89) 98 Physical Exam GENERAL: This is a well-nourished, well-developed patient, in no apparent distress. SKIN: No rashes, ecchymoses or lesions. Cool and dry. HEAD: Atraumatic. Normocephalic. No temporal or scalp tenderness. EYES: Pupils equal round and reactive. Extraocular motions intact. No scleral icterus. No injection or drainage. ENT: Nose without bleeding, purulent drainage or septal hematoma. Throat without erythema, tonsillar hypertrophy or exudate. Uvula midline. Airway patent. NECK: Trachea midline. No JVD or lymphadenopathy. Supple, nontender, no meningeal signs. CARDIOVASCULAR: Regular rate and rhythm without murmurs, gallops, or rubs. RESPIRATORY: Clear to auscultation. Breath sounds equal bilaterally. No wheezes , rales, or rhonchi. GASTROINTESTINAL: Abdomen soft, non-tender, nondistended. No hepato-splenomegaly , or palpable masses. No guarding. MUSCULOSKELETAL: right ankle covered with clean dressing. NEUROLOGICAL: Awake and alert. Cranial nerves II through XII intact. Motor and sensory grossly within normal limits. Five out of 5 muscle strength in all muscle groups. Normal speech. Laboratory Laboratory Tests Test 01/04/18 05:15 01/04/18 05:30 01/04/18 06:40 Stool C. difficile Toxin (PCR) NEGATIVE Stl C. difficile Toxin Epiderm 027 PRESUMPTIVE NEGATIVE White Blood Count 13.3 Red Blood Count 3.34 Hemoglobin 9.1 Hematocrit 26.8 Mean Corpuscular Volume 80.3 Mean Corpuscular Hemoglobin 27.3 Mean Corpuscular Hemoglobin Concent 33.9 Red Cell Distribution Width 14.6 Platelet Count 338 Mean Platelet Volume 6.4 Neutrophils (%) (Auto) 82.0 Lymphocytes (%) (Auto) 12.5 Monocytes (%) (Auto) 4.1 Eosinophils (%) (Auto) 0.8 Basophils (%) (Auto) 0.6 Neutrophils # (Auto) 10.9 Lymphocytes # (Auto) 1.7 Monocytes # (Auto) 0.5 Eosinophils # (Auto) 0.1 Basophils # (Auto) 0.1 CBC Comment DIFF FINAL Differential Comment Prothrombin Time 11.9 Prothromb Time International Ratio 1.2 Activated Partial Thromboplast Time 25.6 Blood Urea Nitrogen 52 Creatinine 0.88 Random Glucose 160 Total Protein 6.6 Albumin 2.9 Calcium Level 7.9 Magnesium Level 1.9 Alkaline Phosphatase 81 Aspartate Amino Transf (AST/SGOT) 8 Alanine Aminotransferase (ALT/SGPT) 12 Total Bilirubin 0.5 Sodium Level 138 Potassium Level 4.2 Chloride Level 106 Carbon Dioxide Level 21.6 Anion Gap 10 Estimat Glomerular Filtration Rate 89 Total Creatine Kinase 40 Troponin I LESS THAN 0.02 B-Type Natriuretic Peptide 4 Lipase 117 Urine Color DARYA Urine Turbidity HAZY Urine pH 5.5 Urine Specific [place] 1.024 Urine Protein 30 Urine Glucose (UA) NEG Urine Ketones TRACE Urine Occult Blood LARGE Urine Nitrite NEG Urine Bilirubin NEG Urine Urobilinogen LESS THAN 2.0 Urine Leukocyte Esterase SMALL Urine RBC Urine WBC 10 Urine Bacteria OCC Urine Mucus FEW Microscopic Urinalysis Comment CULTURE INDICATED Date/Time Source Procedure Growth Status 01/04/18 05:15 Stool Stool Stool Pus (WATSON) Pending Received 01/04/18 06:40 Urine Clean Catch Urine Culture Pending Received Result Diagram: 01/04/1852901/04/18529 Imaging Last Impressions Chest X-Ray 01/04/18527 Signed Impressions: Service Date/Time: Thursday, January 04, 2018 05:33 - CONCLUSION: Underinflation with mild atelectasis at the lung bases. No acute cardiopulmonary abnormality is identified. MD Tammy Ramirez VTE Risk Assessment aTmmy VTE Risk Assessment: Mod/High Risk (score >= 2) Caprini Risk Assessment Model Point Value = 1 Point Value = 2 Point Value = 3 Point Value = 5 Age 41-60 Minor surgery BMI > 25 kg/m2 Swollen legs Varicose veins or History of unexplained or recurrent spontaneous Oral contraceptives or hormone replacement Sepsis (< 1 month) Serious lung disease, including pneumonia (< 1 month) Abnormal pulmonary function Acute myocardial infarction Congestive heart failure (< 1 month) History of inflammatory bowel disease Medical patient at bed rest Age 61-74 Arthroscopic surgery Major open surgery (> 45 min) Laparoscopic surgery (> 45 min) Malignancy Confined to bed (> 72 hours) Immobilizing plaster cast Central venous access Age >= 75 History of VTE Family history of VTE Factor V Leiden Prothrombin [id number] Lupus anticoagulant Anticardiolipin antibodies Elevated serum homocysteine Heparin-induced thrombocytopenia Other congenital or acquired thrombophilia Stroke (< 1 month) Elective arthroplasty Hip, pelvis, or leg fracture Acute spinal cord injury (< 1 month) Prophylaxis Regimen Total Risk Factor Score Risk Level Prophylaxis Regimen 0-1 Low Early ambulation 2 Moderate Order ONE of the following: *Sequential Compression Device (SCD) *Heparin 5000 units SQ BID 3-4 Higher Order ONE of the following medications: *Heparin 5000 units SQ TID *Enoxaparin/Lovenox 40 mg SQ daily (WT < 150 kg, CrCl > 30 mL/min) *Enoxaparin/Lovenox 30 mg SQ daily (WT < 150 kg, CrCl > 10-29 mL/min) *Enoxaparin/Lovenox 30 mg SQ BID (WT < 150 kg, CrCl > 30 mL/min) AND/OR *Sequential Compression Device (SCD) 5 or more Highest Order ONE of the following medications: *Heparin 5000 units SQ TID (Preferred with Epidurals) *Enoxaparin/Lovenox 40 mg SQ daily (WT < 150 kg, CrCl > 30 mL/min) *Enoxaparin/Lovenox 30 mg SQ daily (WT < 150 kg, CrCl > 10-29 mL/min) *Enoxaparin/Lovenox 30 mg SQ BID (WT < 150 kg, CrCl > 30 mL/min) AND *Sequential Compression Device (SCD) Assessment and Plan Assessment and Plan A/P - syncope/ GI bleed- patient is on Xarelto. keep NPO for now- will monitor H/H closely and transfuse PRBC as needed. continue PPI- GI consulted. Xarelto on hold. -recent right ankle fracture- s/p ORIF- continue pain control- consult PT if remains stable. -questionable UTI- start on antibiotic and follow the UC. -hypertension; hold home meds- will monitor for now. -DVT prophylaxis; SCD's- no chemical prophylaxis due to GI bleed. Discussed Condition With the patient and ER physician. Physician Certification 2 Midnight Certification Type: Admission for Inpatient Services Order for Inpatient Services The services are ordered in accordance with Medicare regulations or non- Medicare payer requirements, as applicable. In the case of services not specified as inpatient-only, they are appropriately provided as inpatient services in accordance with the 2-midnight benchmark. Estimated LOS (days): 2 days is the estimated time the patient will need to remain in the hospital, assuming treatment plan goals are met and no additional complications. Post-Hospital Plan: Not yet determined Problem Qualifiers (1) GI bleed: Qualified Codes: K92.2 - Gastrointestinal hemorrhage, unspecified Sachin Leon MD Jan 04, 2018 07:57
[2018-01-04] MEDS ORDERED: ACETAMINOPHEN/HYDROcodone 325 MG/5 MG TAB PO PRN (08:00)
[2018-01-04] MEDS: PANTOPRAZOLE SODIUM 40 MG VIAL IV PUSH SCH (08:56)
[2018-01-04] MEDS: SODIUM CHLORIDE 0.9% FLUSH 10 ML FLUSH IV FLUSH SCH ×2 (09:00→20:35)
[2018-01-04] MEDS: cefTRIAXone INJ 1,000 MG in SODIUM CHLORIDE 0.9% INJ 100 ML IV SCH (09:33)
--- NOTE | 2018-01-04 10:23 | PD.CONS ---
HPI History of Present Illness This is a 57 year old male who is s/p ORIF ankle on xarelto who presented from rehab after he passed out this morning. Last night he noticed hematuria, lower abd pain and pressure, bloating, bleching, decreased appetite. He rates his pain 7/10. he also had 3 x episodes dark loose stool with incontinence this moning. he has lost 11 lbs in the last week. he denies any prior hx of GIB. His las colonoscopy was 2 y ago in [place] and was normal per pt. Last had xarelto yesterday. His stool was heme positive, he is negative for c diff. His hgb was 9.1 on admission. He did have a BM during my evaluation and black loose stool was visualized. (Marilu Singh) PFSH Past Medical History hypertension Past Surgical History cholecystectomy/ ankle ORIF/cataract surgery. skin graft (Marilu Singh) Coded Allergies: lisinopril (Unverified Allergy, Unknown, Hives, 12/21/17) Pt. remembered reaction during another appointment. Family History heart attack in father. Social History no smoking or drinking. (Marilu Singh) Review of Systems Constitutional: COMPLAINS OF: Weight loss, DENIES: Fever Endocrine: DENIES: Polydipsia Eyes: DENIES: Blurred vision Ears, nose, mouth, throat: DENIES: Hearing loss Respiratory: DENIES: Wheezing Cardiovascular: DENIES: Chest pain Gastrointestinal: COMPLAINS OF: Abdominal pain, Black stools, Diarrhea, Anorexia, DENIES: Bloody stools, Nausea, Vomiting, Hematemesis Genitourinary: COMPLAINS OF: Hematuria Musculoskeletal: DENIES: Muscle aches Integumentary: DENIES: Abnormal pigmentation Hematologic/lymphatic: COMPLAINS OF: Bruising Neurologic: COMPLAINS OF: Abnormal gait (ankle fx) Psychiatric: DENIES: Confusion (Marilu Singh) GI Exam Vitals I&O Vital Signs Date Time Temp Pulse Resp B/P (MAP) Pulse Ox O2 Delivery O2 Flow Rate FiO2 01/04/18 09:06 103 18 103/71 (82) 97 Room Air 01/04/18 06:49 93 19 123/67 (85) 95 Room Air 01/04/18 05:19 97 98 Room Air 01/04/18 05:05 96 20 125/72 (89) 98 Room Air 01/04/18 05:01 98.0 66 20 125/72 (89) 98 I/O 01/03/18 01/03/18 01/03/18 01/04/18 01/04/18 01/04/18 07:00 15:00 23:00 07:00 15:00 23:00 Intake Total 1190 ml Output Total 40 ml Balance -40 ml 1190 ml Intake IV Total 1190 ml Output Urine Total 40 ml Imaging Last Impressions Abdomen/Pelvis CT 01/04/18 0635 Signed Impressions: Service Date/Time: Thursday, January 04, 2018 07:21 - CONCLUSION: 1. No acute process. 2. Bilateral renal cysts. 3. Status post cholecystectomy. 4. Right testicle within the inguinal canal above the scrotum. Luc Verudzco MD Chest X-Ray 01/04/18 0528 Signed Impressions: Service Date/Time: Thursday, January 04, 2018 05:33 - CONCLUSION: Underinflation with mild atelectasis at the lung bases. No acute cardiopulmonary abnormality is identified. Baudilio Jo MD Laboratory Test 01/04/18 05:15 01/04/18 05:30 01/04/18 06:40 Stool C. difficile Toxin (PCR) NEGATIVE Stl C. difficile Toxin Epiderm 027 PRESUMPTIVE NEGATIVE White Blood Count 13.3 TH/MM3 Red Blood Count 3.34 MIL/MM3 Hemoglobin 9.1 GM/DL Hematocrit 26.8 % Mean Corpuscular Volume 80.3 FL Mean Corpuscular Hemoglobin 27.3 PG Mean Corpuscular Hemoglobin Concent 33.9 % Red Cell Distribution Width 14.6 % Platelet Count 338 TH/MM3 Mean Platelet Volume 6.4 FL Neutrophils (%) (Auto) 82.0 % Lymphocytes (%) (Auto) 12.5 % Monocytes (%) (Auto) 4.1 % Eosinophils (%) (Auto) 0.8 % Basophils (%) (Auto) 0.6 % Neutrophils # (Auto) 10.9 TH/MM3 Lymphocytes # (Auto) 1.7 TH/MM3 Monocytes # (Auto) 0.5 TH/MM3 Eosinophils # (Auto) 0.1 TH/MM3 Basophils # (Auto) 0.1 TH/MM3 CBC Comment DIFF FINAL Differential Comment Prothrombin Time 11.9 SEC Prothromb Time International Ratio 1.2 RATIO Activated Partial Thromboplast Time 25.6 SEC Blood Urea Nitrogen 52 MG/DL Creatinine 0.88 MG/DL Random Glucose 160 MG/DL Total Protein 6.6 GM/DL Albumin 2.9 GM/DL Calcium Level 7.9 MG/DL Magnesium Level 1.9 MG/DL Alkaline Phosphatase 81 U/L Aspartate Amino Transf (AST/SGOT) 8 U/L Alanine Aminotransferase (ALT/SGPT) 12 U/L Total Bilirubin 0.5 MG/DL Sodium Level 138 MEQ/L Potassium Level 4.2 MEQ/L Chloride Level 106 MEQ/L Carbon Dioxide Level 21.6 MEQ/L Anion Gap 10 MEQ/L Estimat Glomerular Filtration Rate 89 ML/MIN Total Creatine Kinase 40 U/L Troponin I LESS THAN 0.02 NG/ML B-Type Natriuretic Peptide 4 PG/ML Lipase 117 U/L Urine Color DARYA Urine Turbidity HAZY Urine pH 5.5 Urine Specific [place] 1.024 Urine Protein 30 mg/dL Urine Glucose (UA) NEG mg/dL Urine Ketones TRACE mg/dL Urine Occult Blood LARGE Urine Nitrite NEG Urine Bilirubin NEG Urine Urobilinogen LESS THAN 2.0 MG/DL Urine Leukocyte Esterase SMALL Urine RBC /hpf Urine WBC 10 /hpf Urine Bacteria OCC /hpf Urine Mucus FEW /lpf Microscopic Urinalysis Comment CULTURE INDICATED Date/Time Source Procedure Growth Status 01/04/18 05:15 Stool Stool Stool Pus ([facility]ATSON) - Final MANY WBC'S Complete 01/04/18 06:40 Urine Clean Catch Urine Culture Pending Received Physical Examination HEENT: PERRL; normocephalic; atraumatic; no jaundice. CHEST: CTA CARDIAC: RRR ABDOMEN: Soft, nondistended, diffusely TTP; no hepatosplenomegaly; bowel sounds are present in all four quadrants. EXTREMITIES: No clubbing, cyanosis, or edema. RLE w/ debbi wrap SKIN: Normal; no rash; no jaundice. SUIT MAKER: No focal deficits; alert and oriented times three. (Marilu Singh) Assessment and Plan Plan ASSESSMENT - melanotic stool - 3 x episodes fecal incontinence and black loose stool c diff neg. heme pos stool. - abd pain, bloating, dyspepsia - unclear etiology - anemia - normocytic. likely r/t above. s/p ORIF ankle fx on xarelto which he last had yesterday. last colonoscopy 2 y ago in [place] and normal per pt no recent EGD PLAN - EGD and colonoscopy tomorrow - clear liquids today - NPO after MN - Mg Citrate prep - obtain consent - continue to hold xarelto - monitor HH - transfuse if needed - further recs to follow pt seen by myself and Dr Lazar and this note is written on her behalf (Marilu Singh) Physician Comments seen, examined agree with above transfuse 2 units of prbc if hb less than 8 (Elham Lazar MD) Marilu Singh Jan 04, 2018 10:23 Elham Lazar MD Jan 04, 2018 18:14
[2018-01-04 12:51] LABS: HEMATOCRIT 25.6 % (39.0-51.0); HEMOGLOBIN 8.7 GM/DL (13.0-17.0)
[2018-01-04] MEDS ORDERED: MAGNESIUM CITRATE SOLN 300 ML BTL PO ONE ×2 (16:00→18:00)
--- NOTE | 2018-01-04 16:07 | EKG ---
Date Performed: 01/04/2018 Time Performed: 05:27:04 PTAGE: 57 years EKG: Sinus rhythm NONSPECIFIC T-WAVE ABNORMALITY BORDERLINE ECG Since the prior tracing, there has been no significant change PREVIOUS TRACING : 12/22/2017 05.23 DOCTOR: Huan Hill Interpretating Date/Time 01/04/2018 16:05:59
[2018-01-04] MEDS: SODIUM CHLOR 0.9% 1000 ML INJ 1,000 ML IV SCH (17:24)
--- NOTE | 2018-01-04 17:43 | RADRPT ---
EXAM DATE/TIME: 01/04/2018 17:01 [facility] COMPARISON: ANKLE RIGHT COMPLETE ([id number]), December 21, 2017, 16:06. INDICATIONS : Follow-up right ankle fracture. MEDICAL HISTORY : Hypertension. SURGICAL HISTORY : Cholecystectomy. ORIF right ankle. ENCOUNTER: Subsequent ACUITY: 2 weeks PAIN SCORE: 10/10 LOCATION: Right ankle. FINDINGS: Status post internal fixation for fractures of the ankle. There is good position alignment of the fra cture fragments. Hardware is intact. There is good alignment of the mortise joint. There are degenera tive changes of the tarsal bones. There is a heal spur. CONCLUSION: Good position and alignment on this postoperative study. Kvng Perez MD on January 04, 2018 at 17:40 Board Certified Radiologist. This report was verified electronically.
[2018-01-04 18:09] LABS: HEMATOCRIT 25.4 % (39.0-51.0); HEMOGLOBIN 8.5 GM/DL (13.0-17.0)
[2018-01-05] VITALS (14 sets, daily range): BP systolic 111–122; BP diastolic 57–67; PULSE 74–86; RESP 16–18; TEMP 97.4–98.3; O2SAT 93–98
[2018-01-05 01:02] LABS: HEMATOCRIT 21.8 % (39.0-51.0); HEMOGLOBIN 7.3 GM/DL (13.0-17.0)
[2018-01-05] MEDS ORDERED: SODIUM CHLOR 0.9% 250 ML INJ 250 ML IV ONE (05:45)
[2018-01-05 06:00] LABS: AUTOMATED NEUTROPHIL # 6.7 TH/MM3 (1.8-7.7); BASOPHIL # 0.1 TH/MM3 (0-0.2); BASOPHIL % 1.2 % (0.0-2.0); EOSINOPHIL # 0.1 TH/MM3 (0-0.4); EOSINOPHIL % 1.5 % (0.0-4.0); HEMATOCRIT 22.4 % (39.0-51.0); HEMOGLOBIN 7.6 GM/DL (13.0-17.0); LYMPH % 21.6 % (9.0-44.0); LYMPHOCYTE # 2.1 TH/MM3 (1.0-4.8); MEAN CELL VOLUME 80.9 FL (80.0-100.0); MEAN CORPUSCULAR HEMOGLOBIN 27.6 PG (27.0-34.0); MEAN CORPUSCULAR HGB CONC 34.2 % (32.0-36.0); MEAN PLATELET VOLUME 6.5 FL (7.0-11.0); MONO % 6.7 % (0.0-8.0); MONOCYTE # 0.7 TH/MM3 (0-0.9); PLATELET COUNT 338 TH/MM3 (150-450); RED BLOOD COUNT 2.77 MIL/MM3 (4.50-5.90); RED CELL DISTRIBUTION WIDTH 14.3 % (11.6-17.2); WHITE BLOOD COUNT 9.7 TH/MM3 (4.0-11.0)
[2018-01-05 06:26] LABS: BICARBONATE 26.1 MEQ/L (21.0-32.0); CALCIUM 8.3 MG/DL (8.5-10.1); CREATININE 0.69 MG/DL (0.60-1.30)
[2018-01-05] MEDS: SODIUM CHLORIDE 0.9% FLUSH 10 ML FLUSH IV FLUSH SCH ×2 (07:00→20:52)
--- NOTE | 2018-01-05 07:14 | PD.ORT.PN ---
Subjective Subjective Remarks In bed with significant bowel movement. HOTEL ASSOCIATE is helping to clean him up. Top portion of Enmanuel wrap is removed due to fecal matter. Objective Vitals Vital Signs Date Time Temp Pulse Resp B/P (MAP) Pulse Ox O2 Delivery O2 Flow Rate FiO2 01/05/18 07:00 98.0 82 18 118/57 96 01/05/18 06:33 97.4 81 18 111/57 98 01/05/18 04:00 98.2 80 18 111/61 (78) 93 01/05/18 00:00 97.9 86 16 120/63 (82) 97 01/04/18 20:00 93.3 91 14 119/70 (86) 93 01/04/18 16:28 97.3 105 18 119/55 (76) 97 01/04/18 16:00 109 01/04/18 13:11 01/04/18 12:49 98.6 102 18 152/78 (102) 94 01/04/18 11:30 100 16 105/75 (85) 98 Room Air 01/04/18 09:06 103 18 103/71 (82) 97 Room Air I/O 01/04/18 01/04/18 01/04/18 01/05/18 01/05/18 01/05/18 07:00 15:00 23:00 07:00 15:00 23:00 Intake Total 1310 ml 400 ml Output Total 40 ml 1100 ml Balance -40 ml 1310 ml -700 ml Intake Oral 120 ml IV Total 1190 ml Blood Product IV Normal Saline Flush 400 ml Output Urine Total 40 ml 1100 ml # Voids 2 Result Diagram: 01/05/18 0510 01/05/18 0510 Imaging Last 72 hours Impressions Abdomen/Pelvis CT 01/04/18 0635 Signed Impressions: Service Date/Time: Thursday, January 04, 2018 07:21 - CONCLUSION: 1. No acute process. 2. Bilateral renal cysts. 3. Status post cholecystectomy. 4. Right testicle within the inguinal canal above the scrotum. Luc Verduzco MD Chest X-Ray 01/04/18 0528 Signed Impressions: Service Date/Time: Thursday, January 04, 2018 05:33 - CONCLUSION: Underinflation with mild atelectasis at the lung bases. No acute cardiopulmonary abnormality is identified. Baudilio Jo MD Ankle X-Ray 01/04/18 0000 Signed Impressions: Service Date/Time: Thursday, January 04, 2018 17:01 - CONCLUSION: Good position and alignment on this postoperative study. Kvng Perez MD Objective Remarks Right lower extremity: Splint intact and clean. Top Enmanuel wrap has been removed. Intact sensation distally in all toes Assessment & Plan Assessment and Plan Right distal tibia and fibula fractures POD 15 ORIF Maintain splint. [employer] to add Enmanuel wrap Strict nonweightbearing on right lower extremity We'll plan on re-x-raying in 2 weeks If discharged follow-up with David or [facility] in 2 weeks Dereck Martin Jr. Jan 05, 2018 07:14
[2018-01-05] MEDS: SODIUM CHLOR 0.9% 1000 ML INJ 1,000 ML IV SCH ×2 (07:50→20:51)
[2018-01-05] MEDS ORDERED: LIDOCAINE HCL 1% PF 5 ML SYRINGE OTHER ONE (12:00)
[2018-01-05] MEDS ORDERED: PROPOFOL 200 MG/20 ML AMP IV ONE (12:00)
[2018-01-05] MEDS: PANTOPRAZOLE SODIUM 40 MG VIAL IV PUSH SCH (12:46)
[2018-01-05] MEDS: cefTRIAXone INJ 1,000 MG in SODIUM CHLORIDE 0.9% INJ 100 ML IV SCH (14:46)
--- NOTE | 2018-01-05 14:50 | HHI.PR ---
Subjective Remarks Patient feels very tired. He also is complaining of some constant nonradiating periumbilical pain. Vital signs stable. Objective Vitals Vital Signs Date Time Temp Pulse Resp B/P (MAP) Pulse Ox O2 Delivery O2 Flow Rate FiO2 01/05/18 13:41 97.8 74 18 117/63 96 01/05/18 12:05 98.1 74 18 115/64 (81) 95 01/05/18 12:00 77 01/05/18 09:59 98.3 74 18 119/66 97 01/05/18 09:40 97.4 77 18 116/63 96 01/05/18 09:36 97.4 77 18 116/63 96 01/05/18 08:05 97.6 78 18 120/64 (82) 98 01/05/18 08:00 80 01/05/18 07:00 98.0 82 18 118/57 96 01/05/18 06:33 97.4 81 18 111/57 98 01/05/18 04:00 98.2 80 18 111/61 (78) 93 01/05/18 00:00 97.9 86 16 120/63 (82) 97 01/04/18 20:00 93.3 91 14 119/70 (86) 93 01/04/18 16:28 97.3 105 18 119/55 (76) 97 01/04/18 16:00 109 I/O 01/04/18 01/04/18 01/04/18 01/05/18 01/05/18 01/05/18 07:00 15:00 23:00 07:00 15:00 23:00 Intake Total 1310 ml 400 ml 830 ml Output Total 40 ml 1100 ml Balance -40 ml 1310 ml -700 ml 830 ml Intake Oral 120 ml IV Total 1190 ml Packed Cells 800 ml Blood Product IV Normal Saline Flush 400 ml 30 ml Output Urine Total 40 ml 1100 ml # Voids 2 Result Diagram: 01/05/18 0510 01/05/18 0510 Imaging Last Impressions Abdomen/Pelvis CT 01/04/18 0635 Signed Impressions: Service Date/Time: Thursday, January 04, 2018 07:21 - CONCLUSION: 1. No acute process. 2. Bilateral renal cysts. 3. Status post cholecystectomy. 4. Right testicle within the inguinal canal above the scrotum. Luc Verduzco MD Chest X-Ray 01/04/18 0528 Signed Impressions: Service Date/Time: Thursday, January 04, 2018 05:33 - CONCLUSION: Underinflation with mild atelectasis at the lung bases. No acute cardiopulmonary abnormality is identified. Baudilio Jo MD Ankle X-Ray 01/04/18 0000 Signed Impressions: Service Date/Time: Thursday, January 04, 2018 17:01 - CONCLUSION: Good position and alignment on this postoperative study. Kvng Perez MD Objective Remarks GENERAL: This is a well-nourished, well-developed patient, in no apparent distress. SKIN: No rashes, ecchymoses or lesions. Cool and dry. Very pale skin. HEAD: Atraumatic. Normocephalic. No temporal or scalp tenderness. EYES: Pupils equal round and reactive. Extraocular motions intact. No scleral icterus. No injection or drainage. ENT: Nose without bleeding, purulent drainage or septal hematoma. Throat without erythema, tonsillar hypertrophy or exudate. Uvula midline. Airway patent. NECK: Trachea midline. No JVD or lymphadenopathy. Supple, nontender, no meningeal signs. CARDIOVASCULAR: Regular rate and rhythm without murmurs, gallops, or rubs. RESPIRATORY: Clear to auscultation. Breath sounds equal bilaterally. No wheezes , rales, or rhonchi. GASTROINTESTINAL: Abdomen soft, tender to palpation on the periumbilical region, nondistended. No hepato-splenomegaly, or palpable masses. No guarding. MUSCULOSKELETAL: right ankle covered with clean dressing. NEUROLOGICAL: Awake and alert. Cranial nerves II through XII intact. Motor and sensory grossly within normal limits. Five out of 5 muscle strength in all muscle groups. Normal speech. Procedures None Medications and IVs Current Medications Medications (Trade) Dose Ordered Sig/Emmy Route Start Time Stop Time Status Last Admin (NS Flush) 2 ml UNSCH PRN IV FLUSH 01/04/18 06:45 (NS Flush) 2 ml BID IV FLUSH 01/04/18 09:00 (Zofran Inj) 4 mg Q6H PRN IV PUSH 01/04/18 06:45 (Protonix Inj) 40 mg DAILY IV PUSH 01/04/18 09:00 01/05/18 12:46 ([place] 5-325 Mg) 1 tab Q4H PRN PO 01/04/18 08:00 (Fan[place] 5-325 Mg) 2 tab Q4H PRN PO 01/04/18 08:00 Sodium Chloride 1,000 ml @ 84 mls/hr [id number] IV 01/04/18 08:00 01/04/18 17:24 Ceftriaxone Sodium 1000 mg/ Sodium Chloride 100 ml @ 200 mls/hr Q24H IV 01/04/18 08:00 01/04/18 09:33 Sodium Chloride 250 ml @ 15 mls/hr ONCE ONCE IV 01/05/18 05:45 01/05/18 22:24 Urinary Catheter: No Vascular Central Line Catheter: No A/P Problem List: (1) Upper GI bleed ICD Code: K92.2 - Gastrointestinal hemorrhage, unspecified Plan: The patient was admitted to the medical floor, monitor on telemetry. Suspect upper GI bleed since patient complaint of melena and on the Coblation at the time of admission. Hematocrit noted to trend down from 9.1 down to 7.3. The patient is actively being transfused 2 units of packed red blood cells. Xarelto held on admission. Continue to hold. The patient is currently Protonix IV daily, I will place on a Protonix drip and discontinue the Protonix 40 mg IV daily. (2) Syncope ICD Code: R55 - Syncope and collapse Plan: Syncope secondary to symptomatic anemia, secondary to GI bleed. Monitor on telemetry. Telemetry reviewed by me, no arrhythmias observed. (3) Suspected UTI ICD Code: R39.89 - Other symptoms and signs involving the genitourinary system (4) Hypertension ICD Code: I10 - Essential (primary) hypertension Status: Chronic Plan: Hold antihypertensive medications. (5) Hyperlipidemia ICD Code: E78.5 - Hyperlipidemia, unspecified Plan: Continue statin. (6) BPH (benign prostatic hyperplasia) ICD Code: N40.0 - Benign prostatic hyperplasia without lower urinary tract symptoms Plan: Hold Flomax since it can lead to hypotension. (7) Anemia due to acute blood loss ICD Code: D62 - Acute posthemorrhagic anemia Status: Acute Plan: Hemoglobin 12.7 hospital records on June 20, 2018. Hemoglobin has been trending down to 7.3. Patient very symptomatic, tired fatigued and sleepy. Being transfused 2 units of packed red blood cells. Continue to monitor H&H post transfusion. Transfuse as needed for hemoglobin less than 8 if active bleeding, transfuse if less than 7 if there is no active bleeding, transfuse as well for symptomatically anemia. Assessment and Plan GI prophylaxis: PPI. DVT prophylaxis SCDs, chemoprophylaxis contraindicated in the setting of suspected upper GI bleeding. Discharge Planning The patient is for EGD, colonoscopy today. Continue to monitor on the medical floor. Will need GI clearance. Problem Qualifiers (1) Syncope: Qualified Codes: R55 - Syncope and collapse (2) Hypertension: Qualified Codes: I10 - Essential (primary) hypertension (3) BPH (benign prostatic hyperplasia): Qualified Codes: N40.0 - Benign prostatic hyperplasia without lower urinary tract symptoms Brice Montoya MD Jan 05, 2018 14:50
[2018-01-05 15:57] LABS: HEMATOCRIT 25.7 % (39.0-51.0); HEMOGLOBIN 8.9 GM/DL (13.0-17.0)
[2018-01-05] MEDS ORDERED: PANTOPRAZOLE INJ 80 MG in SODIUM CHLORIDE 0.9% INJ 100 ML IV SCH (16:00)
--- NOTE | 2018-01-05 18:07 | GIPROC ---
[facility] [address] [facility]. [facility], [address] EGD PROCEDURE REPORT EXAM DATE: 01/05/2018 PATIENT NAME: Ganga Galindo MR #: [id number] BIRTHDATE: 1960 ATTENDING: Elham Lazar MD ORDER #: [id number] BLISTER PACK OPERATOR: Kaleb Palomino and Abby Stewart STATUS: inpatient INDICATIONS: The patient is a 57 yr old male here for an EGD due to anemia, gi bleeding PROCEDURE PERFORMED: EGD w/ biopsy MEDICATIONS: None and Per Anesthesia. TOPICAL ANESTHETIC: none CONSENT: The patient understands the risks and benefits of the procedure and understands that these risks include, but are not limited to: sedation, allergic reaction, infection, perforation and/or bleeding. Alternative means of evaluation and treatment include, among others: physical exam, x-rays, and/or surgical intervention. The patient elects to proceed with this endoscopic procedure. medical equipment was checked for proper function. Hand hygiene and appropriate measures for infection prevention was taken. After the risks, benefits and alternatives of the procedure were thoroughly explained, Informed consent was verified, confirmed and timeout was successfully executed by the treatment team. The patient was anesthetized with topical anesthesia and the EC-[id number] (Pedi C) endoscope was introduced through the mouth and advanced to the second portion of the duodenum. Retroflexed views revealed a hiatal hernia The gastroscope was then slowly withdrawn and removed. Gastritis antrum-biopsy irregular z line-biopsy duodenitis second portio-biopsy duodenal bulb ulcer clean base -1 cm, duodenitis-biopsy. ADVERSE EVENTS: There were no complications. IMPRESSIONS: 1. Gastritis antrum-biopsy irregular z line-biopsy duodenitis second portio-biopsy duodenal bulb ulcer clean base -1 cm, duodenitis-biopsy 2. Retroflexed views revealed a hiatal hernia RECOMMENDATIONS: 1. Await biopsy results. Biopsy results will not be ready for 7-10 days. If you don't hear from us in two weeks, call our office for biopsy results. 2. Anti-reflux regimen 3. Avoid NSAIDS 4. Ppi-bid can switch to po ok to restart anticoagulation in 2-3 days PATIENT CONDITION: stable DISPOSITION: Inpatient REPEAT EXAM: Return 3 months EGD Elham Lazar MD eSigned: Elham Lazar MD 01/05/2018 6:06 PM cc: PATIENT NAME: Ganga Galindo MR#: [id number]
--- NOTE | 2018-01-05 18:10 | GIPROC ---
[facility] [address] [facility]. [facility], [address] COLONOSCOPY PROCEDURE REPORT EXAM DATE: 01/05/2018 PATIENT NAME: Ganga Galindo MR #: [id number] BIRTHDATE: 1960 ENDOSCOPIST: Elham Lazar MD ORDER #: [id number] BRICKLAYER SUPERVISOR: Kaleb Palomino and Abby Stewart STATUS: inpatient INDICATIONS: The patient is a 57 yr old male here for a colonoscopy due to anemia ,gi bleeding PROCEDURE PERFORMED: Colonoscopy, diagnostic MEDICATIONS: None and Per Anesthesia. PREP QUALITY: suboptimal PREP TYPE:Other: ESTIMATED BLOOD LOSS: None CONSENT: The patient understands the risks and benefits of the procedure and understands that these risks include, but are not limited to: sedation, allergic reaction, infection, perforation and/or bleeding. Alternative means of evaluation and treatment include, among others: physical exam, x-rays, and/or surgical intervention. The patient elects to proceed with this endoscopic procedure. medical equipment was checked for proper function. Hand hygiene and appropriate measures for infection prevention was taken. After the risks, benefits and alternatives of the procedure were thoroughly explained, Informed consent was verified, confirmed and timeout was successfully executed by the treatment team. A digital exam revealed external hemorrhoids The Pentax EC-[id number] endoscope was introduced through the anus and advanced to the cecum, which was identified by both the appendix and ileocecal valve. The instrument was then slowly withdrawn as the colon was fully examined. COLON FINDINGS: Diverticulosis sigmoid,descending semisolid stool-no gross lesions. Retroflexed views revealed internal hemorrhoids and Retroflexed views revealed small internal hemorrhoids The scope was then completely withdrawn from the patient and the procedure terminated. PROCEDURE WITHDRAWAL TIME:6minutes ADVERSE EVENTS: There were no complications. IMPRESSIONS: 1. Diverticulosis sigmoid,descending semisolid stool-no gross lesions 2. Retroflexed views revealed internal hemorrhoids 3. Retroflexed views revealed small internal hemorrhoids 4. Revealed external hemorrhoids RECOMMENDATIONS: 1. Benefiber 2 tsp daily 2. Probiotics from any [facility] or health food store 3. Yearly rectal exams RECALL: Return 1 year Colonoscopy Elahm Lazar MD eSigned: Elham Lazar MD 01/05/2018 6:09 PM cc:
[2018-01-05] MEDS ORDERED: DO NOT ADM ANY ANTICOAGULANT DRUGS PRN (18:45)
[2018-01-06] VITALS (15 sets, daily range): BP systolic 122–136; BP diastolic 58–77; PULSE 63–90; RESP 16–18; TEMP 97.2–98.1; O2SAT 92–97
[2018-01-06] MEDS: ACETAMINOPHEN/HYDROcodone 325 MG/5 MG TAB PO PRN ×3 (00:33→21:39)
--- NOTE | 2018-01-06 06:39 | PD.ORT.PN ---
Subjective Subjective Remarks Resting in bed comfortably. No new complaints Objective Vitals Vital Signs Date Time Temp Pulse Resp B/P (MAP) Pulse Ox O2 Delivery O2 Flow Rate FiO2 01/06/18 04:00 71 01/06/18 01:00 97.6 72 16 133/58 (83) 97 01/06/18 00:00 90 01/05/18 20:30 82 01/05/18 18:30 97.4 80 25 133/73 (93) 99 Room Air 01/05/18 18:15 77 20 107/64 (78) 96 Room Air 01/05/18 18:12 98.0 88 20 101/60 (74) 96 Room Air 01/05/18 16:05 98.2 77 18 122/67 (85) 94 01/05/18 13:41 97.8 74 18 117/63 96 01/05/18 12:05 98.1 74 18 115/64 (81) 95 01/05/18 12:00 77 01/05/18 09:59 98.3 74 18 119/66 97 01/05/18 09:40 97.4 77 18 116/63 96 01/05/18 09:36 97.4 77 18 116/63 96 01/05/18 08:05 97.6 78 18 120/64 (82) 98 01/05/18 08:00 80 01/05/18 07:00 98.0 82 18 118/57 96 I/O 01/05/18 01/05/18 01/05/18 01/06/18 01/06/18 01/06/18 07:00 15:00 23:00 07:00 15:00 23:00 Intake Total 400 ml 830 ml 1400 ml Output Total 1100 ml 850 ml Balance -700 ml 830 ml 550 ml Intake Oral 0 ml IV Total 1000 ml Packed Cells 800 ml Blood Product IV Normal Saline Flush 400 ml 30 ml Other 400 ml Output Urine Total 1100 ml 850 ml # Bowel Movements 2 Result Diagram: 01/05/18 1524 01/05/18 0510 Imaging Last 72 hours Impressions Abdomen/Pelvis CT 01/04/18 0635 Signed Impressions: Service Date/Time: Thursday, January 04, 2018 07:21 - CONCLUSION: 1. No acute process. 2. Bilateral renal cysts. 3. Status post cholecystectomy. 4. Right testicle within the inguinal canal above the scrotum. Luc Verduzco MD Chest X-Ray 01/04/18 0528 Signed Impressions: Service Date/Time: Thursday, January 04, 2018 05:33 - CONCLUSION: Underinflation with mild atelectasis at the lung bases. No acute cardiopulmonary abnormality is identified. Baudilio Jo MD Ankle X-Ray 01/04/18 0000 Signed Impressions: Service Date/Time: Thursday, January 04, 2018 17:01 - CONCLUSION: Good position and alignment on this postoperative study. Kvng Perez MD Objective Remarks Right lower extremity: Splint intact and clean. Intact sensation distally in all toes. Is able to move all toes appropriately Assessment & Plan Assessment and Plan Right distal tibia and fibula fractures POD 16 ORIF Maintain splint. Strict nonweightbearing on right lower extremity We'll plan on re-x-raying in 2 weeks If discharged follow-up with David or [facility] in 2 weeks Dereck Martin Jr. Jan 06, 2018 06:39
[2018-01-06 07:23] LABS: HEMATOCRIT 23.6 % (39.0-51.0); HEMOGLOBIN 8.4 GM/DL (13.0-17.0); MEAN CELL VOLUME 80.7 FL (80.0-100.0); MEAN CORPUSCULAR HEMOGLOBIN 28.7 PG (27.0-34.0); MEAN CORPUSCULAR HGB CONC 35.5 % (32.0-36.0); MEAN PLATELET VOLUME 6.5 FL (7.0-11.0); PLATELET COUNT 284 TH/MM3 (150-450); RED BLOOD COUNT 2.92 MIL/MM3 (4.50-5.90); RED CELL DISTRIBUTION WIDTH 14.4 % (11.6-17.2); WHITE BLOOD COUNT 10.4 TH/MM3 (4.0-11.0)
[2018-01-06 07:34] LABS: BICARBONATE 25.6 MEQ/L (21.0-32.0); CALCIUM 8.3 MG/DL (8.5-10.1); CREATININE 0.68 MG/DL (0.60-1.30)
[2018-01-06] MEDS: SODIUM CHLORIDE 0.9% FLUSH 10 ML FLUSH IV FLUSH SCH ×2 (09:00→21:00)
[2018-01-06] MEDS: SODIUM CHLOR 0.9% 1000 ML INJ 1,000 ML IV SCH ×2 (09:46→19:35)
[2018-01-06] MEDS: cefTRIAXone INJ 1,000 MG in SODIUM CHLORIDE 0.9% INJ 100 ML IV SCH (09:48)
[2018-01-06] MEDS ORDERED: PANTOPRAZOLE INJ 80 MG in SODIUM CHLORIDE 0.9% INJ 100 ML IV SCH (10:00)
--- NOTE | 2018-01-06 13:00 | HHI.GIFU ---
Subjective Remarks Pt resting in bed, reports worsening of epigastric pain today. Denies having a BM. States he feels very light headed. Tolerating diet. (Ofe Lugo) Objective Vitals I&O Vital Signs Date Time Temp Pulse Resp B/P (MAP) Pulse Ox O2 Delivery O2 Flow Rate FiO2 01/06/18 12:14 97.5 81 18 131/73 (92) 95 01/06/18 10:00 Room Air 01/06/18 08:05 97.2 76 18 122/67 (85) 93 01/06/18 08:00 75 01/06/18 06:56 98.1 80 18 136/75 (95) 97 01/06/18 04:00 71 01/06/18 01:00 97.6 72 16 133/58 (83) 97 01/06/18 00:00 90 01/05/18 20:30 82 01/05/18 18:30 97.4 80 25 133/73 (93) 99 Room Air 01/05/18 18:15 77 20 107/64 (78) 96 Room Air 01/05/18 18:12 98.0 88 20 101/60 (74) 96 Room Air 01/05/18 16:05 98.2 77 18 122/67 (85) 94 01/05/18 13:41 97.8 74 18 117/63 96 I/O 01/05/18 01/05/18 01/05/18 01/06/18 01/06/18 01/06/18 06:59 14:59 22:59 06:59 14:59 22:59 Intake Total 400 ml 830 ml 1400 ml 240 ml Output Total 1100 ml 850 ml 650 ml Balance -700 ml 830 ml 550 ml -410 ml Intake Oral 0 ml 240 ml IV Total 1000 ml Packed Cells 800 ml Blood Product IV Normal Saline Flush 400 ml 30 ml Other 400 ml Output Urine Total 1100 ml 850 ml 650 ml # Bowel Movements 2 Laboratory Laboratory Tests Test 01/05/18 15:24 01/06/18 05:02 Hemoglobin 8.9 8.4 Hematocrit 25.7 23.6 White Blood Count 10.4 Red Blood Count 2.92 Mean Corpuscular Volume 80.7 Mean Corpuscular Hemoglobin 28.7 Mean Corpuscular Hemoglobin Concent 35.5 Red Cell Distribution Width 14.4 Platelet Count 284 Mean Platelet Volume 6.5 Blood Urea Nitrogen 17 Creatinine 0.68 Random Glucose 89 Calcium Level 8.3 Sodium Level 140 Potassium Level 3.8 Chloride Level 107 Carbon Dioxide Level 25.6 Anion Gap 7 Estimat Glomerular Filtration Rate 120 Date/Time Source Procedure Growth Status 01/04/18 05:15 Stool Stool Stool Pus ([facility]) - Final MANY WBC'S Complete 01/04/18 06:40 Urine Clean Catch Urine Culture - Final NO GROWTH IN 48 HOURS. Complete Imaging Last Impressions Abdomen/Pelvis CT 01/04/18 0635 Signed Impressions: Service Date/Time: Thursday, January 04, 2018 07:21 - CONCLUSION: 1. No acute process. 2. Bilateral renal cysts. 3. Status post cholecystectomy. 4. Right testicle within the inguinal canal above the scrotum. Luc Verduzco MD Chest X-Ray 01/04/18 0528 Signed Impressions: Service Date/Time: Thursday, January 04, 2018 05:33 - CONCLUSION: Underinflation with mild atelectasis at the lung bases. No acute cardiopulmonary abnormality is identified. Baudilio Jo MD Ankle X-Ray 01/04/18 0000 Signed Impressions: Service Date/Time: Thursday, January 04, 2018 17:01 - CONCLUSION: Good position and alignment on this postoperative study. Kvng Perez MD Physical Exam HEENT: Normocephalic; atraumatic CHEST: Even/unlabored CARDIAC: RRR ABDOMEN: Distended, soft, epigastric tenderness, bowel sounds active EXTREMITIES: No clubbing, cyanosis, or edema. SKIN: Normal; no rash; no jaundice. FRONT CLERK: No focal deficits; alert and oriented times three. (Ofe Lugo [facility]) Assessment and Plan Plan ASSESSMENT - melanotic stool - 3 x episodes fecal incontinence and black loose stool c diff neg. heme pos stool. - abd pain, bloating, dyspepsia - unclear etiology - anemia - normocytic. likely r/t above. s/p ORIF ankle fx on xarelto which he last had yesterday. last colonoscopy 2 y ago in [place] and normal per pt no recent EGD (01/06) --> Pt complaining of worsening epigastric pain today. Denies BM, nausea, vomiting. Reports he has been eating. Also feeling light headed. S/P EGD and colonoscopy yesterday --> Gastritis, duodenitis, large duodenal bulb ulcer, hiatal hernia, diverticulosis. H/H currently 8.4/23.6 S/P 2 U PRBCs received yesterday. Pt remains on Protonix gtt which will be discontinued and changed to IV BID. Will change diet to clear liquids until pain improves. May restart anticoagulation in 2-3 days if improvement in symptoms and stable H/H. Serial H/H at this time to monitor closely. PLAN - Clear liquid diet - DC Protonix gtt - Protonix IV BID - Serial H/H - Transfuse 1 U PRBCs now - Biopsy pending - Notify GI of active bleeding - Further recommendations to follow based on clinical course Pt has been seen and examined by myself and Dr. Lazar and this note is written on her behalf (Ofe Lugo) Physician Comments seen examined agree with above clear liquid abdominal x-ray monitor hb closely (Elham Lazar MD) Ofe Lugo Jan 06, 2018 13:00 Elham Lazar MD Jan 06, 2018 13:52
[2018-01-06] MEDS: PANTOPRAZOLE SODIUM 40 MG VIAL IV PUSH SCH (13:31)
[2018-01-06 14:00] LABS: HEMATOCRIT 25.1 % (39.0-51.0); HEMOGLOBIN 8.7 GM/DL (13.0-17.0); MEAN CELL VOLUME 80.7 FL (80.0-100.0); MEAN CORPUSCULAR HEMOGLOBIN 27.9 PG (27.0-34.0); MEAN CORPUSCULAR HGB CONC 34.6 % (32.0-36.0); MEAN PLATELET VOLUME 6.3 FL (7.0-11.0); PLATELET COUNT 300 TH/MM3 (150-450); RED BLOOD COUNT 3.11 MIL/MM3 (4.50-5.90); RED CELL DISTRIBUTION WIDTH 14.6 % (11.6-17.2); WHITE BLOOD COUNT 9.2 TH/MM3 (4.0-11.0)
--- NOTE | 2018-01-06 16:09 | HHI.PR ---
Subjective Remarks Patient c/o dizziness earlier. Denies chest pain or shortness of breath. Objective Vitals Vital Signs Date Time Temp Pulse Resp B/P (MAP) Pulse Ox O2 Delivery O2 Flow Rate FiO2 01/06/18 14:24 97.2 73 16 132/64 96 01/06/18 14:05 97.8 74 16 123/66 95 01/06/18 12:14 97.5 81 18 131/73 (92) 95 01/06/18 12:00 71 01/06/18 10:00 Room Air 01/06/18 08:05 97.2 76 18 122/67 (85) 93 01/06/18 08:00 75 01/06/18 06:56 98.1 80 18 136/75 (95) 97 01/06/18 04:00 71 01/06/18 01:00 97.6 72 16 133/58 (83) 97 01/06/18 00:00 90 01/05/18 20:30 82 01/05/18 18:30 97.4 80 25 133/73 (93) 99 Room Air 01/05/18 18:15 77 20 107/64 (78) 96 Room Air 01/05/18 18:12 98.0 88 20 101/60 (74) 96 Room Air I/O 01/05/18 01/05/18 01/05/18 01/06/18 01/06/18 01/06/18 06:59 14:59 22:59 06:59 14:59 22:59 Intake Total 400 ml 830 ml 1400 ml 240 ml 10 ml Output Total 1100 ml 850 ml 650 ml Balance -700 ml 830 ml 550 ml -410 ml 10 ml Intake Oral 0 ml 240 ml IV Total 1000 ml Packed Cells 800 ml Blood Product IV Normal Saline Flush 400 ml 30 ml 10 ml Other 400 ml Output Urine Total 1100 ml 850 ml 650 ml # Bowel Movements 2 Result Diagram: 01/06/18 1344 01/06/18 0502 Imaging Last Impressions Abdomen/Pelvis CT 01/04/18 0635 Signed Impressions: Service Date/Time: Thursday, January 04, 2018 07:21 - CONCLUSION: 1. No acute process. 2. Bilateral renal cysts. 3. Status post cholecystectomy. 4. Right testicle within the inguinal canal above the scrotum. Luc Verduzco MD Chest X-Ray 01/04/18 0528 Signed Impressions: Service Date/Time: Thursday, January 04, 2018 05:33 - CONCLUSION: Underinflation with mild atelectasis at the lung bases. No acute cardiopulmonary abnormality is identified. Baudilio Jo MD Ankle X-Ray 01/04/18 0000 Signed Impressions: Service Date/Time: Thursday, January 04, 2018 17:01 - CONCLUSION: Good position and alignment on this postoperative study. Kvng Perez MD Objective Remarks GENERAL: This is a well-nourished, well-developed patient, in no apparent distress. SKIN: No rashes, ecchymoses or lesions. Cool and dry. Very pale skin. HEAD: Atraumatic. Normocephalic. No temporal or scalp tenderness. EYES: Pupils equal round and reactive. Extraocular motions intact. No scleral icterus. No injection or drainage. ENT: Nose without bleeding, purulent drainage or septal hematoma. Throat without erythema, tonsillar hypertrophy or exudate. Uvula midline. Airway patent. NECK: Trachea midline. No JVD or lymphadenopathy. Supple, nontender, no meningeal signs. CARDIOVASCULAR: Regular rate and rhythm without murmurs, gallops, or rubs. RESPIRATORY: Clear to auscultation. Breath sounds equal bilaterally. No wheezes , rales, or rhonchi. GASTROINTESTINAL: Abdomen soft, tender to palpation on the periumbilical region, nondistended. No hepato-splenomegaly, or palpable masses. No guarding. MUSCULOSKELETAL: right ankle covered with clean dressing. NEUROLOGICAL: Awake and alert. Cranial nerves II through XII intact. Motor and sensory grossly within normal limits. Five out of 5 muscle strength in all muscle groups. Normal speech. Procedures None Medications and IVs Current Medications Medications (Trade) Dose Ordered Sig/Emmy Route Start Time Stop Time Status Last Admin (NS Flush) 2 ml UNSCH PRN IV FLUSH 01/04/18 06:45 (NS Flush) 2 ml BID IV FLUSH 01/04/18 09:00 01/05/18 20:52 (Zofran Inj) 4 mg Q6H PRN IV PUSH 01/04/18 06:45 ([place] 5-325 Mg) 1 tab Q4H PRN PO 01/04/18 08:00 ([place] 5-325 Mg) 2 tab Q4H PRN PO 01/04/18 08:00 01/06/18 09:47 Sodium Chloride 1,000 ml @ 84 mls/hr [id number] IV 01/04/18 08:00 01/06/18 09:46 Ceftriaxone Sodium 1000 mg/ Sodium Chloride 100 ml @ 200 mls/hr Q24H IV 01/04/18 08:00 01/06/18 09:48 Miscellaneous Information ALL NURSING DEPARTME... UNSCH PRN .XX 01/05/18 18:45 01/06/18 18:44 (Protonix Inj) 40 mg Q12H IV PUSH 01/06/18 13:00 01/06/18 13:31 A/P Problem List: (1) Upper GI bleed ICD Code: K92.2 - Gastrointestinal hemorrhage, unspecified Plan: The patient was admitted to the medical floor, monitor on telemetry. Suspect upper GI bleed since patient complaint of melena and on the [place] at the time of admission. Hematocrit noted to trend down from 9.1 down to 7.3. The patient is actively being transfused 2 units of packed red blood cells. Xarelto held on admission. Continue to hold. The patient is currently Protonix IV daily, I will place on a Protonix drip and discontinue the Protonix 40 mg IV daily. 01/06 the patient is status post EGD with biopsy and colonoscopy. The procedure he was found the patient has duodenitis, duodenal bulb ulcer, gastritis, irregular Z line, hiatal hernia, diverticulosis, grade 2 internal hemorrhoids. Hemoglobin dropped slightly from 8.9-8.4. Order stat CBC which showed a hemoglobin of 8.7. Patient being transfused 1 unit of packed red blood cells. Patient also complaining of abdominal pain, KUB ordered. (2) Syncope ICD Code: R55 - Syncope and collapse Plan: Syncope secondary to symptomatic anemia, secondary to GI bleed. Monitor on telemetry. Telemetry reviewed by me, no arrhythmias observed. (3) Suspected UTI ICD Code: R39.89 - Other symptoms and signs involving the genitourinary system Plan: Urine culture negative. No antibiotics indicated. (4) Hypertension ICD Code: I10 - Essential (primary) hypertension Status: Chronic Plan: Hold antihypertensive medications. (5) Hyperlipidemia ICD Code: E78.5 - Hyperlipidemia, unspecified Plan: Continue statin. (6) BPH (benign prostatic hyperplasia) ICD Code: N40.0 - Benign prostatic hyperplasia without lower urinary tract symptoms Plan: Hold Flomax since it can lead to hypotension. (7) Anemia due to acute blood loss ICD Code: D62 - Acute posthemorrhagic anemia Status: Acute Plan: Hemoglobin 12.7 hospital records on June 20, 2018. Hemoglobin has been trending down to 7.3. Patient very symptomatic, tired fatigued and sleepy. Being transfused 2 units of packed red blood cells. 01/06 sp transfusion of 2 units of packed red blood cells with an appropriate rise in hemoglobin agree with further transfusion of 1 unit of packed red blood cells. Continue to monitor H&H post transfusion. Transfuse as needed for hemoglobin less than 8 if active bleeding, transfuse if less than 7 if there is no active bleeding, transfuse as well for symptomatically anemia. Assessment and Plan GI prophylaxis: PPI. DVT prophylaxis SCDs, chemoprophylaxis contraindicated in the setting of suspected upper GI bleeding. Discharge Planning Patient still getting confused. Complaining of abdominal pain. Continue to monitor the medical floor. Problem Qualifiers (1) Syncope: Qualified Codes: R55 - Syncope and collapse (2) Hypertension: Qualified Codes: I10 - Essential (primary) hypertension (3) BPH (benign prostatic hyperplasia): Qualified Codes: N40.0 - Benign prostatic hyperplasia without lower urinary tract symptoms Brice Montoya MD Jan 06, 2018 16:08
--- NOTE | 2018-01-06 17:51 | RADRPT ---
EXAM DATE/TIME: 01/06/2018 16:49 [facility] COMPARISON: CT ABDOMEN & PELVIS W CONTRAST, January 04, 2018, 7:21. INDICATIONS : Abdominal pain. MEDICAL HISTORY : Hernia. SURGICAL HISTORY : Cholecystectomy. ENCOUNTER: Initial ACUITY: 2 days PAIN SCORE: 10/10 LOCATION: middle abdomen. FINDINGS: There is a nonspecific bowel gas pattern. Degenerative changes and scoliosis of the thoracolumbar spi ne are noted. Severe arthritic changes are noted involving the right hip joint. There is collapse of the right femoral head suggesting osteonecrosis. CONCLUSION: 1. Nonspecific bowel gas pattern. 2. Degenerative changes and scoliosis of the lumbar spine. 3. Severe arthritic changes and possible osteonecrosis of the right hip. Harpreet Smith MD on January 06, 2018 at 17:46 Board Certified Radiologist. This report was verified electronically.
[2018-01-06 21:18] LABS: HEMATOCRIT 27.1 % (39.0-51.0); HEMOGLOBIN 9.3 GM/DL (13.0-17.0); MEAN CELL VOLUME 82.1 FL (80.0-100.0); MEAN CORPUSCULAR HEMOGLOBIN 28.3 PG (27.0-34.0); MEAN CORPUSCULAR HGB CONC 34.5 % (32.0-36.0); MEAN PLATELET VOLUME 6.7 FL (7.0-11.0); PLATELET COUNT 294 TH/MM3 (150-450); RED BLOOD COUNT 3.29 MIL/MM3 (4.50-5.90); RED CELL DISTRIBUTION WIDTH 14.9 % (11.6-17.2); WHITE BLOOD COUNT 8.7 TH/MM3 (4.0-11.0)
[2018-01-06] MEDS: ONDANSETRON HCL 4 MG/2 ML VIAL IV PUSH PRN (21:40)
[2018-01-07] VITALS (7 sets, daily range): BP systolic 113–135; BP diastolic 58–73; PULSE 58–79; RESP 16–18; TEMP 97.3–98.5; O2SAT 97–98
[2018-01-07] MEDS: PANTOPRAZOLE SODIUM 40 MG VIAL IV PUSH SCH ×2 (01:12→12:55)
[2018-01-07] MEDS: ACETAMINOPHEN/HYDROcodone 325 MG/5 MG TAB PO PRN (06:20)
[2018-01-07] MEDS: ONDANSETRON HCL 4 MG/2 ML VIAL IV PUSH PRN (06:20)
[2018-01-07] MEDS: SODIUM CHLOR 0.9% 1000 ML INJ 1,000 ML IV SCH ×2 (07:11→19:25)
[2018-01-07] MEDS: cefTRIAXone INJ 1,000 MG in SODIUM CHLORIDE 0.9% INJ 100 ML IV SCH (08:42)
[2018-01-07] MEDS: SODIUM CHLORIDE 0.9% FLUSH 10 ML FLUSH IV FLUSH SCH ×2 (08:42→19:42)
--- NOTE | 2018-01-07 09:55 | HHI.GIFU ---
Subjective Remarks Pt resting in bed, no GI complaints at this time. Tolerating clear liquid diet. Denies nausea, vomiting, abdominal pain. Has not had BM. (Ofe Lugo) Objective Vitals I&O Vital Signs Date Time Temp Pulse Resp B/P (MAP) Pulse Ox O2 Delivery O2 Flow Rate FiO2 01/07/18 09:15 Room Air 01/07/18 08:00 97.3 66 18 117/73 (88) 97 01/07/18 08:00 58 01/07/18 04:00 59 01/07/18 00:00 76 01/07/18 00:00 97.3 73 16 113/58 (76) 98 01/06/18 20:45 63 01/06/18 20:45 Room Air 01/06/18 20:00 98.0 71 16 136/77 (96) 97 01/06/18 17:19 97.9 76 18 132/63 92 01/06/18 16:39 Room Air 01/06/18 16:18 97.7 80 17 133/63 (86) 97 01/06/18 16:00 82 01/06/18 14:24 97.2 73 16 132/64 96 01/06/18 14:05 97.8 74 16 123/66 95 01/06/18 12:14 97.5 81 18 131/73 (92) 95 01/06/18 12:00 71 01/06/18 10:00 Room Air I/O 01/06/18 01/06/18 01/06/18 01/07/18 01/07/18 01/07/18 07:00 15:00 23:00 07:00 15:00 23:00 Intake Total 240 ml 10 ml 1360 ml 1000 ml Output Total 650 ml 650 ml 1400 ml Balance -410 ml 10 ml 710 ml -400 ml Intake Oral 240 ml 960 ml IV Total 1000 ml Packed Cells 400 ml Blood Product IV Normal Saline Flush 10 ml Output Urine Total 650 ml 650 ml 1400 ml # Bowel Movements 0 Laboratory Laboratory Tests Test 01/06/18 13:44 01/06/18 19:50 White Blood Count 9.2 8.7 Red Blood Count 3.11 3.29 Hemoglobin 8.7 9.3 Hematocrit 25.1 27.1 Mean Corpuscular Volume 80.7 82.1 Mean Corpuscular Hemoglobin 27.9 28.3 Mean Corpuscular Hemoglobin Concent 34.6 34.5 Red Cell Distribution Width 14.6 14.9 Platelet Count 300 294 Mean Platelet Volume 6.3 6.7 Date/Time Source Procedure Growth Status 01/04/18 05:15 Stool Stool Stool Pus ([facility]) - Final MANY WBC'S Complete 01/04/18 06:40 Urine Clean Catch Urine Culture - Final NO GROWTH IN 48 HOURS. Complete Imaging Last Impressions Abdomen X-Ray 01/06/18 0000 Signed Impressions: Service Date/Time: December 16:49 - CONCLUSION: 1. Nonspecific bowel gas pattern. 2. Degenerative changes and scoliosis of the lumbar spine. 3. Severe arthritic changes and possible osteonecrosis of the right hip. Harpreet Smith MD Abdomen/Pelvis CT 01/04/18 0635 Signed Impressions: Service Date/Time: Thursday, January 04, 2018 07:21 - CONCLUSION: 1. No acute process. 2. Bilateral renal cysts. 3. Status post cholecystectomy. 4. Right testicle within the inguinal canal above the scrotum. Luc Verduzco MD Chest X-Ray 01/04/18 0528 Signed Impressions: Service Date/Time: Thursday, January 04, 2018 05:33 - CONCLUSION: Underinflation with mild atelectasis at the lung bases. No acute cardiopulmonary abnormality is identified. Baudilio Jo MD Ankle X-Ray 01/04/18 0000 Signed Impressions: Service Date/Time: Thursday, January 04, 2018 17:01 - CONCLUSION: Good position and alignment on this postoperative study. Kvng Perez MD Physical Exam HEENT: Normocephalic; atraumatic CHEST: Even/unlabored CARDIAC: RRR ABDOMEN: Distended, soft, nontender, bowel sounds active. EXTREMITIES: No clubbing, cyanosis, or edema. SKIN: Normal; no rash; no jaundice. ADMINISTRATION DEAN: No focal deficits; alert and oriented times three. (Ofe Lugo) Assessment and Plan Plan ASSESSMENT - melanotic stool - 3 x episodes fecal incontinence and black loose stool c diff neg. heme pos stool. - abd pain, bloating, dyspepsia - unclear etiology - anemia - normocytic. likely r/t above. s/p ORIF ankle fx on xarelto which he last had yesterday. last colonoscopy 2 y ago in [place] and normal per pt no recent EGD (01/06) --> Pt complaining of worsening epigastric pain today. Denies BM, nausea, vomiting. Reports he has been eating. Also feeling light headed. S/P EGD and colonoscopy yesterday --> Gastritis, duodenitis, large duodenal bulb ulcer, hiatal hernia, diverticulosis. H/H currently 8.4/23.6 S/P 2 U PRBCs received yesterday. Pt remains on Protonix gtt which will be discontinued and changed to IV BID. Will change diet to clear liquids until pain improves. May restart anticoagulation in 2-3 days if improvement in symptoms and stable H/H. Serial H/H at this time to monitor closely. (01/07) --> Pt tolerating clear liquid diet. Denies abdominal pain, nausea, vomiting, Has not had a BM. KUB from yesterday noted --> nonspecific bowel gas pattern. S/P 1 U PRBCs yesterday. H/H last checked last night 9.3/27.1. Ordered repeat CBC for today. PLAN - Repeat CBC - Continue Protonix - Advance diet - EGD biopsy pending - If pt tolerating diet and H/H stable we will sign off Pt has been seen and examined by myself and Dr. Lazar and this note is written on her behalf (Ofe Lugo) Physician Comments seen, examined agree with above ok to dc home from gi point ok to restart anticoagulation from gi point , with close monitoring of cbc and ppi bid egd as ordered gi will sign off (Elham Lazar MD) Ofe Lugo Jan 07, 2018 09:55 Elham Lazar MD Jan 07, 2018 19:14
--- NOTE | 2018-01-07 13:51 | HHI.PR ---
Subjective Remarks The patient denies any chest pain or shortness of breath. Abdominal pain has resolved. Denies nausea or vomiting. Tolerating liquid diet very well. Denies any further melena. Objective Vitals Vital Signs Date Time Temp Pulse Resp B/P (MAP) Pulse Ox O2 Delivery O2 Flow Rate FiO2 01/07/18 13:19 Room Air 01/07/18 12:00 74 01/07/18 12:00 98.2 75 18 135/71 (92) 97 01/07/18 09:15 Room Air 01/07/18 08:00 97.3 66 18 117/73 (88) 97 01/07/18 08:00 58 01/07/18 04:00 59 01/07/18 00:00 76 01/07/18 00:00 97.3 73 16 113/58 (76) 98 01/06/18 20:45 63 01/06/18 20:45 Room Air 01/06/18 20:00 98.0 71 16 136/77 (96) 97 01/06/18 17:19 97.9 76 18 132/63 92 01/06/18 16:39 Room Air 01/06/18 16:18 97.7 80 17 133/63 (86) 97 01/06/18 16:00 82 01/06/18 14:24 97.2 73 16 132/64 96 01/06/18 14:05 97.8 74 16 123/66 95 I/O 01/06/18 01/06/18 01/06/18 01/07/18 01/07/18 01/07/18 07:00 15:00 23:00 07:00 15:00 23:00 Intake Total 240 ml 10 ml 1360 ml 1000 ml Output Total 650 ml 650 ml 1400 ml Balance -410 ml 10 ml 710 ml -400 ml Intake Oral 240 ml 960 ml IV Total 1000 ml Packed Cells 400 ml Blood Product IV Normal Saline Flush 10 ml Output Urine Total 650 ml 650 ml 1400 ml # Bowel Movements 0 Result Diagram: 01/06/18 1950 01/06/18 0502 Imaging Last Impressions Abdomen X-Ray 01/06/18 0000 Signed Impressions: Service Date/Time: December 16:49 - CONCLUSION: 1. Nonspecific bowel gas pattern. 2. Degenerative changes and scoliosis of the lumbar spine. 3. Severe arthritic changes and possible osteonecrosis of the right hip. Harpreet Smith MD Abdomen/Pelvis CT 01/04/18 0635 Signed Impressions: Service Date/Time: Thursday, January 04, 2018 07:21 - CONCLUSION: 1. No acute process. 2. Bilateral renal cysts. 3. Status post cholecystectomy. 4. Right testicle within the inguinal canal above the scrotum. Luc Verduzco MD Chest X-Ray 01/04/18 0528 Signed Impressions: Service Date/Time: Thursday, January 04, 2018 05:33 - CONCLUSION: Underinflation with mild atelectasis at the lung bases. No acute cardiopulmonary abnormality is identified. Baudilio Jo MD Ankle X-Ray 01/04/18 0000 Signed Impressions: Service Date/Time: Thursday, January 04, 2018 17:01 - CONCLUSION: Good position and alignment on this postoperative study. Kvng Perez MD Objective Remarks GENERAL: This is a well-nourished, well-developed patient, in no apparent distress. SKIN: No rashes, ecchymoses or lesions. Cool and dry. [place] skin. HEAD: Atraumatic. Normocephalic. No temporal or scalp tenderness. EYES: Pupils equal round and reactive. Extraocular motions intact. No scleral icterus. No injection or drainage. ENT: Nose without bleeding, purulent drainage or septal hematoma. Throat without erythema, tonsillar hypertrophy or exudate. Uvula midline. Airway patent. NECK: Trachea midline. No JVD or lymphadenopathy. Supple, nontender, no meningeal signs. CARDIOVASCULAR: Regular rate and rhythm without murmurs, gallops, or rubs. RESPIRATORY: Clear to auscultation. Breath sounds equal bilaterally. No wheezes , rales, or rhonchi. GASTROINTESTINAL: Abdomen soft, nontender, nondistended. No hepato-splenomegaly , or palpable masses. No guarding. MUSCULOSKELETAL: right ankle covered with clean dressing. NEUROLOGICAL: Awake and alert. Cranial nerves II through XII intact. Motor and sensory grossly within normal limits. Five out of 5 muscle strength in all muscle groups. Normal speech. Procedures None Medications and IVs Current Medications Medications (Trade) Dose Ordered Sig/Emmy Route Start Time Stop Time Status Last Admin (NS Flush) 2 ml UNSCH PRN IV FLUSH 01/04/18 06:45 (NS Flush) 2 ml BID IV FLUSH 01/04/18 09:00 01/07/18 08:42 (Zofran Inj) 4 mg Q6H PRN IV PUSH 01/04/18 06:45 01/07/18 06:20 ([place] 5-325 Mg) 1 tab Q4H PRN PO 01/04/18 08:00 ([place] 5-325 Mg) 2 tab Q4H PRN PO 01/04/18 08:00 01/07/18 06:20 Sodium Chloride 1,000 ml @ 84 mls/hr [id number] IV 01/04/18 08:00 01/07/18 07:11 Ceftriaxone Sodium 1000 mg/ Sodium Chloride 100 ml @ 200 mls/hr Q24H IV 01/04/18 08:00 01/07/18 08:42 (Protonix Inj) 40 mg Q12H IV PUSH 01/06/18 13:00 01/07/18 12:55 Urinary Catheter: No Vascular Central Line Catheter: No A/P Problem List: (1) Upper GI bleed ICD Code: K92.2 - Gastrointestinal hemorrhage, unspecified (2) Syncope ICD Code: R55 - Syncope and collapse (3) Suspected UTI ICD Code: R39.89 - Other symptoms and signs involving the genitourinary system (4) Hypertension ICD Code: I10 - Essential (primary) hypertension Status: Chronic (5) Hyperlipidemia ICD Code: E78.5 - Hyperlipidemia, unspecified (6) BPH (benign prostatic hyperplasia) ICD Code: N40.0 - Benign prostatic hyperplasia without lower urinary tract symptoms (7) Anemia due to acute blood loss ICD Code: D62 - Acute posthemorrhagic anemia Status: Acute Assessment and Plan (1) Upper GI bleed Plan: The patient was admitted to the medical floor, monitor on telemetry. GI suspected since patient complained of melena on admission. The patient was transfused after hemoglobin trended down to 7.3. The patient status post a fusion of 2 units of packed red blood cells. Xarelto was held on admission. Patient was treated with IV Protonix drip. The patient is status post EGD with biopsy and colonoscopy. The procedure he was found the patient has duodenitis, duodenal bulb ulcer, gastritis, irregular Z line, hiatal hernia, diverticulosis, grade 2 internal hemorrhoids. Hemoglobin dropped slightly from 8.9-8.4. Order stat CBC which showed a hemoglobin of 8.7. Patient status post infusion of 1 extra packet of red blood cells on 01/06. KUB was ordered since patient was complaining of abdominal pain. KUB reviewed by me shows nonspecific bowel gas pattern. Degenerative changes and a scoliosis of the lumbar spine. Severe arthritic changes and possible osteonecrosis of the right hip. I will defer further management of the osteonecrosis of the right hip to orthopedic surgery. This can be followed up as an outpatient. (2) Syncope Syncope secondary to symptomatic anemia, secondary to GI bleed. Monitor on telemetry. Telemetry reviewed by me, no arrhythmias observed. (3) Suspected UTI Urine culture negative. No antibiotics indicated. (4) Hypertension Antihypertensive medications were held on admission and blood pressure has remained stable. (5) Hyperlipidemia Statin continued. (6) BPH (benign prostatic hyperplasia) Flomax held since it can lead to hypotension. It will be resumed upon discharge. (7) Anemia due to acute blood loss The patient is status post transfusion of a total of 3 units of packed red blood cells after hemoglobin dropped down to 7.3. H&H monitored during hospital stay. Hemoglobin stable. GI prophylaxis: PPI. DVT prophylaxis SCDs, chemoprophylaxis contraindicated in the setting of suspected upper GI bleeding. Discharge Planning Dc later if patient tolerated diet. Problem Qualifiers (1) Syncope: Qualified Codes: R55 - Syncope and collapse (2) Hypertension: Qualified Codes: I10 - Essential (primary) hypertension (3) BPH (benign prostatic hyperplasia): Qualified Codes: N40.0 - Benign prostatic hyperplasia without lower urinary tract symptoms Brice Montoya MD Jan 07, 2018 13:51
[2018-01-07 13:56] LABS: HEMOGLOBIN 9.1 GM/DL (13.0-17.0); MEAN CELL VOLUME 82.7 FL (80.0-100.0); MEAN CORPUSCULAR HEMOGLOBIN 27.9 PG (27.0-34.0); MEAN CORPUSCULAR HGB CONC 33.8 % (32.0-36.0); MEAN PLATELET VOLUME 6.5 FL (7.0-11.0); PLATELET COUNT 286 TH/MM3 (150-450); RED BLOOD COUNT 3.26 MIL/MM3 (4.50-5.90); RED CELL DISTRIBUTION WIDTH 14.7 % (11.6-17.2); WHITE BLOOD COUNT 6.8 TH/MM3 (4.0-11.0)
[2018-01-08] VITALS: PULSE 68
[2018-01-08] MEDS: ACETAMINOPHEN/HYDROcodone 325 MG/5 MG TAB PO PRN (00:49)
[2018-01-08] MEDS: PANTOPRAZOLE SODIUM 40 MG VIAL IV PUSH SCH ×2 (00:49→13:40)
[2018-01-08 04:00] VITALS: BP 109/61; PULSE 53; PULSE 59; RESP 16; TEMP 97.2; O2SAT 96
[2018-01-08] MEDS: SODIUM CHLOR 0.9% 1000 ML INJ 1,000 ML IV SCH (06:59)
[2018-01-08 08:00] VITALS: BP 141/64; PULSE 64; PULSE 67; RESP 20; TEMP 97.8; O2SAT 96
[2018-01-08] MEDS: SODIUM CHLORIDE 0.9% FLUSH 10 ML FLUSH IV FLUSH SCH (09:00)
[2018-01-08 09:06] LABS: BICARBONATE 27.3 MEQ/L (21.0-32.0); CALCIUM 8.5 MG/DL (8.5-10.1); CREATININE 0.78 MG/DL (0.60-1.30)
[2018-01-08] MEDS: cefTRIAXone INJ 1,000 MG in SODIUM CHLORIDE 0.9% INJ 100 ML IV SCH (09:58)
[2018-01-08] MEDS ORDERED: HYDR-3583 PO (11:39)
[2018-01-08] MEDS ORDERED: PROT40TA PO (11:45)
--- NOTE | 2018-01-08 11:46 | HHI.DCPOC ---
Discharge Care Plan Diagnosis: (1) Duodenal bulb ulcer (2) GI bleed (3) Diverticulosis (4) Upper GI bleed (5) Anemia due to acute blood loss (6) BPH (benign prostatic hyperplasia) (7) Hypertension (8) Syncope (9) Hyperlipidemia Goals to Promote Your Health * To prevent worsening of your condition and complications * To maintain your health at the optimal level Directions to Meet Your Goals Take your medications as prescribed Follow your dietary instruction Follow activity as directed Keep your appointments as scheduled Take your immunizations and boosters as scheduled If your symptoms worsen call your PCP, if no PCP go to Urgent Care Center or Emergency Room Smoking is Dangerous to Your Health. Avoid second hand smoke Call the 24-hour hour crisis hotline for domestic abuse at Brice Montoya MD Jan 08, 2018 11:46
[2018-01-08 12:00] VITALS: PULSE 71
[2018-01-08] MEDS ORDERED: XARE10TA PO (12:05)
== END 2018-01-08 14:40 | DRG 378 ==
LOC: NEPE 04:55 → NEDA 06:42 → N04A 12:26
PROVIDERS: ADMIT Hospitalist; ATTEND Hospitalist
PROC: 0DB68ZX Excision of Stomach, Via Natural or Artificial Opening Endoscopic, Diagnostic (ICD-10-PCS; 2018-01-05)
PROC: 0DB58ZX Excision of Esophagus, Via Natural or Artificial Opening Endoscopic, Diagnostic (ICD-10-PCS; 2018-01-05)
PROC: 30233N1 Transfusion of Nonautologous Red Blood Cells into Peripheral Vein, Percutaneous Approach (ICD-10-PCS; 2018-01-05)
PROC: 0DJD8ZZ Inspection of Lower Intestinal Tract, Via Natural or Artificial Opening Endoscopic (ICD-10-PCS; principal; 2018-01-05 17:31)
PROC: 0DB98ZX Excision of Duodenum, Via Natural or Artificial Opening Endoscopic, Diagnostic (ICD-10-PCS; 2018-01-05 17:31)
DX: K26.4 Chronic or unspecified duodenal ulcer with hemorrhage (principal); D62 Acute posthemorrhagic anemia; M87.851 Other osteonecrosis, right femur; I10 Essential (primary) hypertension; K92.1 Melena; R55 Syncope and collapse; Z79.02 Long term (current) use of antithrombotics/antiplatelets; S82.891D Other fracture of right lower leg, subsequent encounter for closed fracture with routine healing; K57.30 Diverticulosis of large intestine without perforation or abscess without bleeding; K64.8 Other hemorrhoids; K64.4 Residual hemorrhoidal skin tags; K44.9 Diaphragmatic hernia without obstruction or gangrene; R15.9 Full incontinence of feces; K29.70 Gastritis, unspecified, without bleeding; K29.80 Duodenitis without bleeding; E78.5 Hyperlipidemia, unspecified; R33.8 Other retention of urine
CPT/HCPCS: 36430; 71045; 73610; 74019; 74177; 80048; 80053; 81001; 82550; 83690; 83735; 83880; 84484; 85014; 85018; 85025; 85027; 85610; 85730; 86850; 86900; 86901; 86920; 87086; 87205; 87493; 87506; 88305; 88312; 93005; 99291; C9113; J0696; J2405; J7030; P9016; Q9967

== ENCOUNTER 2018-03-24 13:20 | Emergency (ER) | payer MEDICARE, OTHER ==
[~2018-03-24] VITALS: Ht 167.6 cm; Wt 113.0 kg
[~2018-03-24 13:20] MED LIST changes: +PROT40TA PO; -WALKER/ADULT/FO1 MIS
[2018-03-24 13:28] VITALS: BP 137/87; PULSE 107; RESP 18; TEMP 98.7; O2SAT 99
[2018-03-24] MEDS ORDERED: MORPHINE SULFATE 4 MG/ML INJ IV PUSH ONE (13:30)
[2018-03-24] MEDS ORDERED: SODIUM CHLORIDE 0.9% FLUSH 10 ML FLUSH IVF PRN (13:30)
--- NOTE | 2018-03-24 13:34 | PD ---
HPI Chief Complaint: Fall Time Seen by Provider: 13:29 Travel History International Travel<30 days: No Contact w/Intl Traveler<30days: No Traveled to known affect area: No History of Present Illness HPI 57-year-old male with PMH of OA, HTN presents to the ED via EMS for evaluation of 07/08 right hip pain. Onset after the patient slipped while getting into the shower and fell onto his right hip. He denies hitting his head or LOC. He states that he is unable to extend the hip. He denies numbness, tingling of the extremity. He has not been ambulatory since the accident. He states that he has been minimally ambulatory since November when he broke his ankle. He did go to rehab for a few days but has not followed up since then. He has not had anything to eat today. He states that he is followed by Dr. Hernandez, orthopedics. [facility] Past Medical History Arthritis: No Anxiety: No Depression: No Heart Rhythm Problems: No Cancer: No Cardiovascular Problems: Yes (HTN) High Cholesterol: No Chest Pain: No Congestive Heart Failure: No Endocrine: No Genitourinary: No Hypertension: Yes Immune Disorder: No Musculoskeletal: Yes (DDD) Neurologic: No Psychiatric: No Reproductive: No Respiratory: No Past Surgical History Body Medical Devices: 3 pins in ankle and long screw Ear Surgery: No Eye Surgery: Yes (CATARACT REMOVAL) Genitourinary Surgery: Yes (GALLBLADDER REMOVED) Oral Surgery: No Other Surgery: Yes Social History Alcohol Use: No Tobacco Use: No Substance Use: No Allergies-Medications (Allergen,Severity, Reaction): Coded Allergies: lisinopril (Unverified Allergy, Unknown, Hives, 12/21/17) Pt. remembered reaction during another appointment. Reported Meds & Prescriptions Reported Meds & Active Scripts Active Freehold (Hydrocodone-Acetaminophen) 5 Mg-325 Mg Tab 1 Tab PO Q6H PRN Reported Flomax (Tamsulosin HCl) 0.4 Mg Cap 0.4 Mg PO HS Atorvastatin (Atorvastatin Calcium) 10 Mg Tab 10 Mg PO HS Gabapentin 300 Mg Cap 900 Mg PO HS [prosvent] Amlodipine (Amlodipine Besylate) 10 Mg Tab 10 Mg PO DAILY Review of Systems Except as stated in HPI: all other systems reviewed are Neg Physical Exam Narrative GENERAL: Well-nourished, well-developed foul-smelling white male in no acute distress. SKIN: Focused skin assessment warm/dry. HEAD: Normocephalic. EYES: No scleral icterus. No injection or drainage. NECK: Supple, trachea midline. No JVD or lymphadenopathy. CARDIOVASCULAR: Regular rate and rhythm without murmurs, gallops, or rubs. RESPIRATORY: Breath sounds equal bilaterally. No accessory muscle use. GASTROINTESTINAL: Abdomen soft, non-tender, nondistended. MUSCULOSKELETAL: No cyanosis, 2+ edema to the midshin bilaterally. FOCUSED RIGHT LOWER EXTREMITY EXAM: 2+ DP pulse. No tenderness to palpation of the anterior lateral hip. Patient is able to extend the knee. He is unwilling to move the hip from the flexion position. Range of motion testing limited secondary to patient's pain. Sensation intact distally. BACK: Nontender without obvious deformity. No CVA tenderness. Data Data Last Documented VS Vital Signs Date Time Temp Pulse Resp B/P (MAP) Pulse Ox O2 Delivery O2 Flow Rate FiO2 03/24/18 16:57 76 17 124/64 (84) 96 Room Air 03/24/18 13:28 98.7 Orders Orders Femur (Ap & Lat/2vws) (03/24/18 13:29) Iv Access Insert/Monitor (03/24/18 13:29) Oximetry (03/24/18 13:29) Ecg Monitoring (03/24/18 13:29) Morphine Inj (Morphine Inj) (03/24/18 13:30) Sodium Chloride 0.9% Flush (Ns Flush) (03/24/18 13:30) NPO (03/24/18 13:29) Ct Hip W/O Contrast (03/24/18 ) Oxycodone-Acetamin 7.5-325 Mg (Percocet (03/24/18 16:00) Ed Discharge Order (03/24/18 17:45) MDM Medical Decision Making Medical Screen Exam Complete: Yes Emergency Medical Condition: Yes Differential Diagnosis Contracture versus contusion versus femur fracture versus hip fracture versus dislocation versus other Narrative Course 57-year-old male with PMH of OA, HTN presents to the ED via EMS for evaluation of 8/10 right hip pain. Onset after the patient slipped while getting into the shower and fell onto his right hip. He states that he has been minimally ambulatory since November when he broke his ankle. He did go to rehab for a few days but has not followed up since then. He is followed by Dr. Hernandez. Vitals reviewed. On exam the patient has no tenderness to palpation of the anterior lateral hip. He is unable to extend the hip. He can extend the knee. Neurovascularly intact distally. IV was established. Patient was administered 4 mg morphine. X-ray of the femur revealed severe osteoarthritis with joint space narrowing without fracture although it is difficult to rule out an impacted subcapital femoral fracture due to the osteophyte formation per radiology read. CT of the hip was performed and reveals severe osteoarthritis without acute fracture. I discussed the results of the workup with Dr. Schuler's nurse practitioner. He does not think any emergent intervention is needed, feels that the patient can follow-up outpatient. Is also results of workup with the patient. I provided the patient with a few doses of Freehold, instructed him to follow-up with Dr. Hernandez. Patient is very irritated, states "why can't I just get this done today?" I explained that that no emergent condition is present, advise the patient to seek a second opinion if he thinks it is warranted. Patient is stable and discharged home. Diagnosis Primary Impression: Contusion of right hip Qualified Codes: S70.01XA - Contusion of right hip, initial encounter Additional Impressions: Contracture of hip joint Qualified Codes: M24.551 - Contracture, right hip Osteoarthritis of right hip Qualified Codes: M16.11 - Unilateral primary osteoarthritis, right hip Referrals: Gilberto Hernandez MD Additional Instructions: Rest, hydrate. Resume at home medications as previously prescribed. Follow up with Dr. Hernandez as discussed. Return to the ED for any urgent or emergent medical condition. Med/Other Pt SpecificInfo: Prescription(s) given Scripts Hydrocodone-Acetaminophen (Freehold) 5 Mg-325 Mg Tab 1 TAB PO Q6H Y for PAIN, #10 TAB 0 Refills Prov: Aldo Arreguin MD 03/24/18 Disposition: 01 DISCHARGE HOME Condition: Stable Dinora Haro Mar 24, 2018 13:34
[2018-03-24 13:45] VITALS: O2SAT 98
--- NOTE | 2018-03-24 14:53 | RADRPT ---
EXAM DATE/TIME: 03/24/2018 14:27 [facility] COMPARISON: No previous studies available for comparison. INDICATIONS : Fall. Right hip pain. MEDICAL HISTORY : Hernia. SURGICAL HISTORY : Cholecystectomy. ENCOUNTER: Initial ACUITY: 1 day PAIN SCORE: 10/10 LOCATION: Right hip FINDINGS: Two view examination of the right femur demonstrates very impressive joint space narrowing and very l arge size of the femoral head. No displaced fracture is identified. The visualized bony pelvis is int act. Bony mineralization is normal. The soft tissue structures are intact. CONCLUSION: Marked bony proliferation of the femoral head and severe joint space narrowing consistent with severe osteoarthritis. No displaced fracture is noted. It would be difficult to rule out an impacted subcap ital femoral fracture with this amount of osteophyte around the femoral head. Jenaro Craig MD on March 24, 2018 at 14:49 Board Certified Radiologist. This report was verified electronically.
--- NOTE | 2018-03-24 15:44 | RADRPT ---
EXAM DATE/TIME: 03/24/2018 15:15 [facility] COMPARISON: No previous studies available for comparison. INDICATIONS : Fall. Right hip pain. RADIATION DOSE: 65.81 CTDIvol (mGy) MEDICAL HISTORY : Hypertension. SURGICAL HISTORY : None. ENCOUNTER: Initial ACUITY: 1 day PAIN SCALE: 6/10 LOCATION: Right pelvis TECHNIQUE: Volumetric scanning of the hip was performed. Using automated exposure control and adjustment of the mA and/or kV according to patient size, radiation dose was kept as low as reasonably achievable to o btain optimal diagnostic quality images. DICOM format image data is available electronically for rev iew and comparison. FINDINGS: BONES: There is marked shortening of the femoral neck. There prominent osteophytes of the femoral head. Ther e is severe osteoarthritis of the right hip JOINTS: Marked joint space narrowing and osteophyte formation. Bony remodeling. No acute fracture. SOFT TISSUES: Muscles, tendons and neurovascular structures are grossly unremarkable. No evidence of mass, organize d fluid collection, or foreign body. CONCLUSION: Severely osteoarthritis. No acute fracture. Jenaro Craig MD on March 24, 2018 at 15:39 Board Certified Radiologist. This report was verified electronically.
[2018-03-24] MEDS ORDERED: oxyCODONE/ACETAMINOPHEN 7.5 MG/325 MG TAB PO ONE (16:00)
[2018-03-24 16:57] VITALS: BP 124/64; PULSE 76; RESP 17; O2SAT 96
[2018-03-24] MEDS ORDERED: NORC5TAB PO (17:45)
== END 2018-03-24 20:07 | disposition home or self-care (01) ==
LOC: NEPE 13:20
DX: S70.01XA Contusion of right hip, initial encounter (principal); M24.551 Contracture, right hip; M16.11 Unilateral primary osteoarthritis, right hip; I10 Essential (primary) hypertension; W18.2XXA Fall in (into) shower or empty bathtub, initial encounter; Z79.899 Other long term (current) drug therapy; Z88.8 Allergy status to other drugs, medicaments and biological substances
CPT/HCPCS: 73552; 73700; 96374; 99284; J2270

== ENCOUNTER 2018-08-10 23:55 | Observation (INO) ==
[2018-08-11] MEDS ORDERED: Morphine Sulfate Inj 8 MG/ML Vial IV.PUSH ONE (00:16)
--- NOTE | 2018-08-11 00:21 | ED ---
HPI General Chief Complaint: Fall Stated Complaint: Fall Time Seen by Provider: 08/11/18 00:09 Source: patient Mode of arrival: ambulatory Limitations: no limitations History of Present Illness HPI Narrative: 58-year-old man brought in by EMS after suffering a fall out of chair and injuring his right hip. This occurred about an hour prior to arrival. Patient does not be why but he states that he slipped out of his walker seat. He landed on his right hip and has had pain ever since. The onset of pain was immediate. He also struck the right side of his head and thinks he may have had a momentary loss of consciousness. Thinks it may have been a few seconds long and he reports that he "was seeing stars." He has arthropathy of the left hip which is necessitating the use of a walker and is currently awaiting scheduling for a total hip arthroplasty. He denies neck pain. He also noticed that he is having left shoulder pain. EMS was unable to straighten the patient's legs on the stretcher. However the believe that they look equal in length. He is having muscle spasms in the hamstrings of the right thigh. Related Data Home Medications Medication Instructions Recorded Confirmed amlodipine See Label Instructions .ROUTE 08/11/18 08/11/18 .COMPLEX atorvastatin 20 mg PO DAILY 08/11/18 08/11/18 gabapentin 300 mg PO BID 08/11/18 08/11/18 hydrochlorothiazide 25 mg PO DAILY 08/11/18 08/11/18 tamsulosin [Flomax] 0.4 mg PO DAILY 08/11/18 08/11/18 Allergies Allergy/AdvReac Type Severity Reaction Status Date / Time lisinopril Allergy Unknown Hives Unverified 12/21/17 17:38 Review of Systems ROS: all other systems reviewed are negative [facility] Medical History Medical History Back pain (Acute) HTN (hypertension) (Acute) Right hip pain (Acute) Surgical History Surgical History History of cataract surgery (Acute) History of cholecystectomy (Acute) Social History Social History Substance History: No History of Abuse Second Hand Smoke Exposure: No Smoking Status: Never smoker How Often Do You Have a Drink Containing Alcohol: Never Recent Travel in [facility] within the Last 8 Weeks: No Recent Out of Country Travel within the Last 8 Weeks: No Immunization History Tetanus Immunization: <5 Years Hx Influenza Vaccine This Season: No Exam Narrative Exam Narrative: GENERAL: 58-year-old man who appears older than his stated age lying on stretcher with knees flexed and hips flexed and internally rotated. He appears to be crying out distress from pain. SKIN: Focused skin assessment warm/dry. Skin intact overlying the right hip. HEAD: Atraumatic. Normocephalic. There is a tender spot patient's right parietal scalp but no hematoma. EYES: Pupils equal and round. No scleral icterus. No injection or drainage. No hyphema in the anterior chamber. ENT: No nasal bleeding or discharge. Mucous membranes pink and moist. No facial tenderness or instability. NECK: Trachea midline. No JVD. No midline cervical tenderness. Patient is able to rotate his head greater than 60 left and right. CARDIOVASCULAR: Regular rate and rhythm. No murmur appreciated. RESPIRATORY: No accessory muscle use. Clear to auscultation. Breath sounds equal bilaterally. GASTROINTESTINAL: Abdomen soft, non-tender, nondistended. Overweight abdomen. MUSCULOSKELETAL: Patient completely unable to straighten out either leg. Cannot extend at the hip or the knee. Significant tenderness of the right hip on palpation. No clubbing. No cyanosis. No edema. NEUROLOGICAL: Awake and alert. No obvious cranial nerve deficits. Motor grossly within normal limits. Normal speech. Sensation intact bilateral lower extremities. Unable to test motor function in lower extremities due to patient' s inability to flex at the joints. Patient totally unable to stand or ambulate as he is unable to bear his own weight. PSYCHIATRIC: Appropriate mood and affect; insight and judgment normal. Course Reevaluation(s) Reevaluation #1: Patient returned from x-ray because he was unable to have x- rays performed. Tech states that patient would not cooperate with positioning due to pain and he refused the x-rays. I spoke with patient urging him to try again and ordered a dose of 1 mg hydromorphone IV for pain control. At this time he is fully alert and breathing normally. I think that he can tolerate additional narcotics safely. Time: 00:48 Reevaluation #2: The patient still cannot move his right hip at all and still has pain. This is despite x-ray being negative for fracture. Therefore I will order CT of the hip at this time to evaluate for occult fracture. Time: 02:59 Initial Documented Vital Signs Temperature 98.6 F 08/11/18 00:05 Respiratory Rate 20 08/11/18 00:05 Blood Pressure 175/92 H 08/11/18 00:05 Pulse Oximetry 95 08/11/18 00:05 Last Documented Vital Signs Temperature 98.6 F 08/11/18 00:05 Respiratory Rate 16 08/11/18 05:30 Blood Pressure 175/92 H 08/11/18 00:05 Pulse Oximetry 95 08/11/18 00:05 Medical Decision Making MDM Narrative Medical decision making narrative: 58-year-old man presents with right hip pain after a fall off of walker. I suspect it was fractured based on his physical exam but x-rays were negative. Therefore CT scan was ordered which demonstrated significantly advanced osteoarthritis but no fracture or dislocation. After this I attempted to ambulate the patient was unable to do so he had received 8 mg of morphine, 1 mg of hydromorphone, and [address] head and neck negative for acute injuries. He was ultimately admitted for his inability to ambulate. Medical Screen Exam Complete: Yes Emergency Medical Condition: Yes Medical Records Medical records reviewed: Yes I reviewed the patient's medical records. Lab Data Lab results reviewed: Yes I reviewed the patient's lab results. Lab results narrative: Mild hypokalemia. Result diagrams: 08/11/18 00:30 08/11/18 00:30 Lab Results 08/11/18 08/11/18 08/11/18 Range/Units 00:30 00:30 00:30 WBC 8.7 (4.0-11.0) th/mm3 RBC 5.04 (4.50-5.90) mil/mm3 Hgb 12.9 L (13.0-17.0) gm/dL Hct 39.0 (39.0-51.0) % MCV 77.3 L (80.0-100.0) fL MCH 25.6 L (27.0-34.0) pg MCHC 33.1 (32.0-36.0) % RDW 17.1 (11.6-17.2) % Plt Count 225 (150-450) th/mm3 MPV 8.0 (7.0-11.0) fL Neut % (Auto) 73.6 H (16.0-70.0) % Lymph % (Auto) 17.0 (9.0-44.0) % Coles % (Auto) 7.7 (0.0-8.0) % Eos % (Auto) 1.2 (0.0-4.0) % Baso % (Auto) 0.5 (0.0-2.0) % Neut # (Auto) 6.4 (1.8-7.7) th/mm3 Lymph # (Auto) 1.5 (1.0-4.8) th/mm3 Coles # (Auto) 0.7 (0.0-0.9) th/mm3 Eos # (Auto) 0.1 (0.0-0.4) th/mm3 Baso # (Auto) 0.0 (0.0-0.2) th/mm3 WBC Differential . Differential Comment Auto diff final PT 10.9 (9.8-11.6) sec INR 1.1 Ratio Sodium 145 (136-145) meq/L Potassium 3.2 L (3.5-5.1) meq/L Chloride 104 (98-107) meq/L Carbon Dioxide 28.9 (21.0-32.0) meq/L Anion Gap 12 (5-15) meq/L BUN 17 (7-18) mg/dL Creatinine 0.96 (0.60-1.30) mg/dL Estimated GFR 80 L (>89) mL/min Random Glucose 100 (74-106) mg/dL Calcium 8.9 (8.5-10.1) mg/dL Total Bilirubin 1.3 H (0.2-1.0) mg/dL AST 21 (15-37) U/L ALT 24 (12-78) U/L Alkaline Phosphatase 112 (45-117) U/L Total Protein 8.1 (6.4-8.2) g/dL Albumin 4.0 (3.4-5.0) g/dL Imaging Data Radiologist's impression: Cervical Spine CT 08/11/18 00:16 CONCLUSION: 1. No acute findings. Moderate degenerative disc disease. Chest X-Ray 08/11/18 00:16 CONCLUSION: Minimal basilar atelectasis. No acute findings. Head CT 08/11/18 00:16 CONCLUSION: 1. No acute intracranial abnormalities. . Hip X-Ray 08/11/18 00:16 CONCLUSION: Advanced osteoarthritis of the right hip. No acute fracture. Knee X-Ray 08/11/18 00:16 CONCLUSION: No acute fracture. Shoulder X-Ray 08/11/18 00:16 CONCLUSION: Moderate osteoarthritis of the left shoulder. No acute bony abnormality. Hip CT 08/11/18 02:58 CONCLUSION: 1. No acute fracture. Advanced osteoarthritis of the right hip. Discharge Plan Discharge Disposition Patient Disposition: 30 Still Patient Discharge Condition Condition: Fair Discharge Details Diagnosis: Contusion of hip, right, Inability to ambulate due to hip, Fall from ground level Physicians Team ED Provider: Florencio Pearl Primary Care Provider: UNKNOWN, Attending Provider: Ez Goff Status ED Status: Admitted Observation Patient
[2018-08-11] MEDS ORDERED: Morphine Inj 4 MG/ML Vial ONE (00:22)
[2018-08-11 00:41] LABS: Baso % (Auto) 0.5 % (0.0-2.0); Eos # (Auto) 0.1 th/mm3 (0.0-0.4); Eos % (Auto) 1.2 % (0.0-4.0); Hemoglobin 12.9 gm/dL (13.0-17.0); Lymph # (Auto) 1.5 th/mm3 (1.0-4.8); Mean Corpuscular HGB Conc 33.1 % (32.0-36.0); Mean Corpuscular Hemoglobin 25.6 pg (27.0-34.0); Mean Corpuscular Volume 77.3 fL (80.0-100.0); Mono # (Auto) 0.7 th/mm3 (0.0-0.9); Mono % (Auto) 7.7 % (0.0-8.0); Neut # (Auto) 6.4 th/mm3 (1.8-7.7); Neut % (Auto) 73.6 % (16.0-70.0); Platelet Count 225 th/mm3 (150-450); Red Blood Count 5.04 mil/mm3 (4.50-5.90); Red Cell Distribution Width 17.1 % (11.6-17.2); White Blood Count 8.7 th/mm3 (4.0-11.0)
[2018-08-11] MEDS ORDERED: HYDROmorphone PF Inj 2 MG/ML Vial IV.PUSH ONE (00:46)
[2018-08-11 00:57] LABS: Anion Gap 12 meq/L (5-15); Aspartate Aminotransferase 21 U/L (15-37); Blood Urea Nitrogen 17 mg/dL (7-18); Calcium 8.9 mg/dL (8.5-10.1); Carbon Dioxide 28.9 meq/L (21.0-32.0); Chloride 104 meq/L (98-107); Glucose,Random 100 mg/dL (74-106); Potassium 3.2 meq/L (3.5-5.1); Sodium 145 meq/L (136-145)
[2018-08-11 01:00] LABS: Alanine Aminotransferase 24 U/L (12-78); Alkaline Phosphatase 112 U/L (45-117); Glomerular Filtration Rate 80 mL/min (>89); Total Protein 8.1 g/dL (6.4-8.2)
[2018-08-11 01:02] LABS: INR 1.1 Ratio; Prothrombin Time 10.9 sec (9.8-11.6)
--- NOTE | 2018-08-11 02:19 | XR ---
EXAM DATE: 08/11/2018 2:15 AM EDT AGE/SEX: 58 years / Male INDICATIONS: Shortness of breath post fall. CLINICAL DATA: This is the patient's initial encounter. Patient reports that signs and symptoms have been present for 1 day and indicates a pain score of 0/10. MEDICAL/SURGICAL HISTORY: None. None. [place] [facility] [place]. . FINDINGS: Mild basilar and dependent atelectasis. No effusion or pneumothorax. Heart size within normal limits. CONCLUSION: Minimal basilar atelectasis. No acute findings. Electronically signed by: Andres Crowder MD 08/11/2018 2:18 AM EDT
--- NOTE | 2018-08-11 02:21 | CT ---
EXAM DATE: 08/11/2018 2:18 AM EDT AGE/SEX: 58 years / Male INDICATIONS: Fall, hit right side of head. CLINICAL DATA: This is the patient's initial encounter. Patient reports that signs and symptoms have been present for 1 day and indicates a pain score of 4/10. MEDICAL/SURGICAL HISTORY: Hypertension. None. RADIATION DOSE: 56.35 CTDI (mGy) ;Tabletop exam COMPARISON: [facility] – [place], CT BRAIN W/O CONTRAST, 03/03/2017. . TECHNIQUE: CT of the head without contrast. Using automated exposure control and adjustment of the mA and/or kV according to patient size, radiation dose was kept as low as reasonably achievable to ob tain optimal diagnostic quality images. DICOM format image data is available electronically for revi ew and comparison. FINDINGS: Cerebrum: The ventricles are normal for age. No evidence of midline shift, mass lesion, hemorrhage or acute infarction. No extraaxial fluid collections are seen. Posterior Fossa: The cerebellum and brainstem are intact. The 4th ventricle is midline. The cerebe llopontine angle is unremarkable. Extracranial: The visualized portion of the orbits is intact. Skull: The calvaria is intact. No evidence of skull fracture. CONCLUSION: 1. No acute intracranial abnormalities. . Electronically signed by: Andres Crowder MD 08/11/2018 2:20 AM EDT
--- NOTE | 2018-08-11 02:23 | CT ---
EXAM DATE: 08/11/2018 2:20 AM EDT AGE/SEX: 58 years / Male INDICATIONS: Fall, hit right side of head. CLINICAL DATA: This is the patient's initial encounter. Patient reports that signs and symptoms have been present for 1 day and indicates a pain score of 4/10. MEDICAL/SURGICAL HISTORY: Hypertension. None. RADIATION DOSE: 24.27 CTDI (mGy) ;Tabletop exam COMPARISON: No prior exams available for comparison. TECHNIQUE: Contiguous axial images were obtained using helical multirow detector technique. The vol umetric data was post-processed with multiplanar reconstruction in oblique axial, sagittal, and coron al planes. Using automated exposure control and adjustment of the mA and/or kV according to patient s ize, radiation dose was kept as low as reasonably achievable to obtain optimal diagnostic quality jenny ges. DICOM format image data is available electronically for review and comparison. FINDINGS: There is moderate degenerative disc disease and facet arthropathy. Slight reversal of normal cervical lordosis. No acute fracture or spondylolisthesis. Multilevel AP canal stenosis noted at C2-3 and C5- 6-7 with lateral recess stenosis. CONCLUSION: 1. No acute findings. Moderate degenerative disc disease. Electronically signed by: Andres Crowder MD 08/11/2018 2:22 AM EDT
--- NOTE | 2018-08-11 02:25 | XR ---
EXAM DATE: 08/11/2018 2:21 AM EDT AGE/SEX: 58 years / Male INDICATIONS: Right knee pain status post fall. CLINICAL DATA: This is the patient's initial encounter. Patient reports that signs and symptoms have been present for 1 day and indicates a pain score of 8/10. MEDICAL/SURGICAL HISTORY: None. None. COMPARISON: [facility] – [place], FEMUR RIGHT (AP & LAT/2VWS), 03/24/2018. . FINDINGS: Examination limited by patient condition with the knee joint remaining flexed. Mild osteoarthritis. N o acute fractures identified. CONCLUSION: No acute fracture. Electronically signed by: Andres Crowder MD 08/11/2018 2:24 AM EDT
--- NOTE | 2018-08-11 02:26 | XR ---
EXAM DATE: 08/11/2018 2:20 AM EDT AGE/SEX: 58 years / Male INDICATIONS: Right hip pain status post fall. CLINICAL DATA: This is the patient's initial encounter. Patient reports that signs and symptoms have been present for 1 day and indicates a pain score of 8/10. MEDICAL/SURGICAL HISTORY: None. None. COMPARISON: [facility] [place], FEMUR RIGHT (AP & LAT/2VWS), 03/24/2018. . FINDINGS: There is advanced osteoarthritis at the right hip joint space narrowing, sclerosis, osteophyte format ion and subchondral cysts on both sides of the joint. Mild to moderate left hip arthritis. CONCLUSION: Advanced osteoarthritis of the right hip. No acute fracture. Electronically signed by: Andres Crowder MD 08/11/2018 2:25 AM EDT
--- NOTE | 2018-08-11 02:26 | XR ---
EXAM DATE: 08/11/2018 2:21 AM EDT AGE/SEX: 58 years / Male INDICATIONS: Left shoulder pain status post fall. CLINICAL DATA: This is the patient's initial encounter. Patient reports that signs and symptoms have been present for 1 day and indicates a pain score of 8/10. MEDICAL/SURGICAL HISTORY: None. None. COMPARISON: No prior exams available for comparison. FINDINGS: Moderate osteoarthritis of the shoulder joint and AC joint. No acute fracture or dislocation. CONCLUSION: Moderate osteoarthritis of the left shoulder. No acute bony abnormality. Electronically signed by: Andres Crowder MD 08/11/2018 2:24 AM EDT
[2018-08-11] MEDS ORDERED: Ketorolac Inj 30 MG/ML (IVP) Vial IV.PUSH ONE (04:23)
--- NOTE | 2018-08-11 04:39 | CT ---
EXAM DATE: 08/11/2018 3:57 AM EDT AGE/SEX: 58 years / Male INDICATIONS: Right hip pain post fall. Evaluate for fracture. CLINICAL DATA: This is the patient's initial encounter. Patient reports that signs and symptoms have been present for 1 day and indicates a pain score of 10/10. MEDICAL/SURGICAL HISTORY: Osteoarthritis. None. RADIATION DOSE: 32.76 CTDI (mGy) COMPARISON: [facility] – [place], CT HIP RIGHT W/O CONTRAST, 03/24/2018. . TECHNIQUE: Multiple contiguous axial images were acquired using a multirow detector CT scanner witho ut contrast. Multiplanar reconstruction was performed in the sagittal and coronal planes. Using aut omated exposure control and adjustment of the mA and/or kV according to patient size, radiation dose was kept as low as reasonably achievable to obtain optimal diagnostic quality images. DICOM format i mage data is available electronically for review and comparison. FINDINGS: There is advanced osteoarthritis of the right hip with marked joint space narrowing, sclerosis and donald bchondral cyst formation as well as large osteophytes. No acute fracture. CONCLUSION: 1. No acute fracture. Advanced osteoarthritis of the right hip. Electronically signed by: Andres Crowder MD 08/11/2018 4:38 AM EDT
[2018-08-11] MEDS ORDERED: Acetaminophen 325 MG Tablet PO PRN (06:03)
[2018-08-11 08:30] VITALS: TEMP 98
--- NOTE | 2018-08-11 10:21 | P.HP ---
History of Present Illness Primary Care Physician: UNKNOWN History of Present Illness: 58-year-old white male being admitted for acute fall injury to right hip. Patient was in his usual state of health until yesterday evening when he fell after losing his balance when he was trying to bend over and pick something up landing on his right hip and also striking the back of his head, all on tile floor. Reportedly had intractable pain in the right hip, had called his over. Was unable to bear weight at the call 911. Says he was "seeing stars" but is quite confident that he did not lose consciousness. He denies having any chest pain preceding during or after the incident. Denies having any acute visual focal disturbances. Denies having any nausea or vomiting. On upon arriving to the ER, patient got multiple pain medications and said that the Dilaudid help him the best. Head CT of the right hip done which just showed advanced osteoarthritis but no fractures per reading. Patient says that he fell again in the hospital on the same hip and had even more pain. Patient says that he uses a walker at baseline at home and has chronic right hip pain. Says that his hip and leg get quite stiff even after lying for an hour at home. Just take some Tylenol and NSAIDs at home for the pain but says it is still quite bothersome nonetheless. Says he feels like his hamstrings get awfully tight when he sits for long time. Patient says he lives with his and works at a call center. Review of Systems All other systems reviewed negative except as stated in HPI PMFSH - History History Provided By: Patient - Medical History Medical History: Medical History (Last Reviewed 08/11/18 @ 10:25 by Ez Goff MD) Back pain HTN (hypertension) Right hip pain - Surgical History Surgical History: Surgical History (Last Reviewed 08/11/18 @ 10:25 by Ez Goff MD) History of cataract surgery History of cholecystectomy Status post open reduction with internal fixation (ORIF) of fracture of ankle Onset Date: 12/22/17 - Family History Family History: Family History (Last Updated 08/11/18 @ 10:25 by Ez Goff MD) Other Patient denies significant medical history - Social History I have reviewed the patient's Social History: Yes - Tobacco History Second Hand Smoke Exposure: No Smoking Status: Never smoker - Alcohol History How Often Do You Have a Drink Containing Alcohol: Never - Substance Use History Substance History: No History of Abuse - Travel History Recent Travel in the [place] Within the Last 8 Weeks: No Recent Travel Out of the Country Within the Last 8 Weeks: No - Immunization History Tetanus Immunization: <5 Years Hx Influenza Vaccine This Season: No Medications and Allergies Active Medications: Active Medications Acetaminophen (Tylenol) 650 mg PO Q4H PRN PRN Reason: Temp > 100.4 Ondansetron HCl (Zofran Inj) 4 mg IV.PUSH Q6H PRN PRN Reason: NAUSEA OR VOMITING Allergies Allergy/AdvReac Type Severity Reaction Status Date / Time lisinopril Allergy Unknown Hives Verified 08/11/18 07:41 Home Medications Medication Instructions Recorded Confirmed Type amlodipine See Label Instructions .ROUTE 08/11/18 08/11/18 History .COMPLEX atorvastatin 20 mg PO DAILY 08/11/18 08/11/18 History gabapentin 300 mg PO BID 08/11/18 08/11/18 History hydrochlorothiazide 25 mg PO DAILY 08/11/18 08/11/18 History tamsulosin [Flomax] 0.4 mg PO DAILY 08/11/18 08/11/18 History Exam Vital signs: Vital Signs 08/11/18 00:05 08/11/18 00:38 08/11/18 04:30 Temperature 98.6 F Pulse Rate Respiratory Rate 20 17 16 Blood Pressure 175/92 H Pulse Oximetry 95 08/11/18 05:30 08/11/18 08:00 Temperature 98.0 F Pulse Rate 79 Respiratory Rate 16 16 Blood Pressure 142/78 H Pulse Oximetry 92 L Intake & Output 08/10/18 08/11/18 08/11/18 18:59 06:59 18:59 Weight 113.469 kg 113.496 kg Other: Weight On Admission 113.496 kg Narrative: VS: afebrile GENERAL: Lying in bed, awake, alert, no acute distress SKIN: Warm and dry. EYES: No scleral icterus. No injection or drainage. ENT: No nasal bleeding or discharge. Mucous membranes pink and moist. CARDIOVASCULAR: Regular rate and rhythm. no murmurs RESPIRATORY: No accessory muscle use. Clear to auscultation. Breath sounds equal bilaterally. GASTROINTESTINAL: Abdomen soft, non-tender, nondistended. Extremities: No clubbing, cyanosis, or edema. No obvious deformities. MUSCULOSKELETAL: Has both of his hips flexed slightly, I am unable to fully stretch out his left leg as he does have tight hamstrings. He is able to externally rotate his left hip. He has considerably more pain on externally rotating his right hip. NEUROLOGICAL: Awake and alert. No obvious cranial nerve deficits. No facial droop nor slurred speech noted. PSYCHIATRIC: Appropriate mood and affect; insight and judgment normal. Results - Labs CBC & Chem 7: 08/11/18 00:30 08/11/18 00:30 Labs: Laboratory Results - last 24 hr 08/11/18 08/11/18 08/11/18 00:30 00:30 00:30 WBC 8.7 RBC 5.04 Hgb 12.9 L Hct 39.0 MCV 77.3 L MCH 25.6 L MCHC 33.1 RDW 17.1 Plt Count 225 MPV 8.0 Neut % (Auto) 73.6 H Lymph % (Auto) 17.0 [place] % (Auto) 7.7 Eos % (Auto) 1.2 Baso % (Auto) 0.5 Neut # (Auto) 6.4 Lymph # (Auto) 1.5 [place] # (Auto) 0.7 Eos # (Auto) 0.1 Baso # (Auto) 0.0 WBC Differential . Differential Comment Auto diff final PT 10.9 INR 1.1 Sodium 145 Potassium 3.2 L Chloride 104 Carbon Dioxide 28.9 Anion Gap 12 BUN 17 Creatinine 0.96 Estimated GFR 80 L Random Glucose 100 Calcium 8.9 Total Bilirubin 1.3 H AST 21 ALT 24 Alkaline Phosphatase 112 Total Protein 8.1 Albumin 4.0 - Imaging Impressions Cervical Spine CT 08/11/18 00:16 CONCLUSION: 1. No acute findings. Moderate degenerative disc disease. Chest X-Ray 08/11/18 00:16 CONCLUSION: Minimal basilar atelectasis. No acute findings. Head CT 08/11/18 00:16 CONCLUSION: 1. No acute intracranial abnormalities. . Hip X-Ray 08/11/18 00:16 CONCLUSION: Advanced osteoarthritis of the right hip. No acute fracture. Knee X-Ray 08/11/18 00:16 CONCLUSION: No acute fracture. Shoulder X-Ray 08/11/18 00:16 CONCLUSION: Moderate osteoarthritis of the left shoulder. No acute bony abnormality. Hip CT 08/11/18 02:58 CONCLUSION: 1. No acute fracture. Advanced osteoarthritis of the right hip. Caprini VTE Risk Assessment Caprini VTE Risk Assessment: Moderate/High Risk (score >= 2) Caprini Risk Assessment Model: Point Value = 1 Point Value = 2 Point Value = 3 Point Value = 5 Age 41-60 Minor surgery BMI > 25 kg/m2 Swollen legs Varicose veins or History of unexplained or recurrent spontaneous Oral contraceptives or hormone replacement Sepsis (< 1 month) Serious lung disease, including pneumonia (< 1 month) Abnormal pulmonary function Acute myocardial infarction Congestive heart failure (< 1 month) History of inflammatory bowel disease Medical patient at bed rest Age 61-74 Arthroscopic surgery Major open surgery (> 45 min) Laparoscopic surgery (> 45 min) Malignancy Confined to bed (> 72 hours) Immobilizing plaster cast Central venous access Age >= 75 History of VTE Family history of VTE Factor V Leiden Prothrombin [id number] Lupus anticoagulant Anticardiolipin antibodies Elevated serum homocysteine Heparin-induced thrombocytopenia Other congenital or acquired thrombophilia Stroke (< 1 month) Elective arthroplasty Hip, pelvis, or leg fracture Acute spinal cord injury (< 1 month) Prophylaxis Regimen: Total Risk Factor Score Risk Level Prophylaxis Regimen 0-1 Low Early ambulation 2 Moderate Order ONE of the following: *Sequential Compression Device (SCD) *Heparin 5000 units SQ BID 3-4 Higher Order ONE of the following medications: *Heparin 5000 units SQ TID *Enoxaparin/Lovenox 40 mg SQ daily (WT < 150 kg, CrCl > 30 mL/min) *Enoxaparin/Lovenox 30 mg SQ daily (WT < 150 kg, CrCl > 10-29 mL/min) *Enoxaparin/Lovenox 30 mg SQ BID (WT < 150 kg, CrCl > 30 mL/min) AND/OR *Sequential Compression Device (SCD) 5 or more Highest Order ONE of the following medications: *Heparin 5000 units SQ TID (Preferred with Epidurals) *Enoxaparin/Lovenox 40 mg SQ daily (WT < 150 kg, CrCl > 30 mL/min) *Enoxaparin/Lovenox 30 mg SQ daily (WT < 150 kg, CrCl > 10-29 mL/min) *Enoxaparin/Lovenox 30 mg SQ BID (WT < 150 kg, CrCl > 30 mL/min) AND *Sequential Compression Device (SCD) Assessment and Plan - Plan 58-year-old white male admitted for acute fall with right hip contusion Acute fall with right hip contusion Contusion upon chronic advanced osteoarthritis no fracture on CT scan We will consult physical therapy to assess ambulatory status We will consult orthopedics to see if the patient is a candidate for operative intervention at this time versus elective outpatient scheduling Discharge Planning: Orthopedics evaluated the patient, recommended outpatient management for his hip osteoarthritis. Patient has met maximal benefit from hospitalization and is clinically stable for discharge.
[2018-08-11] MEDS ORDERED: Morphine Inj 4 MG/ML Vial IV.PUSH ONE (11:09)
--- NOTE | 2018-08-11 12:24 | P.CONOP ---
[facility] Orthopedics Consult Note - [facility] Consult date: 08/11/18 Consult reason: joint pain (right hip) Chief complaint: Right Hip Osteoarthritis, Unable to Ambulate Narrative: Patient is a 58-year-old white male who presents emergency department today after suffering a fall at home. This patient is previously known to Dr. Meza after undergoing treatment for his right ankle fracture. He was subsequently lost to follow-up after his 6 week visit. He states that he was at home trying to pick something up when he bent over and fell. He did strike his head. He states he had immediate right hip pain but has had the same hip pain for a while now. He states the pain is deep in the groin and prevents him from ambulating. Prior to this fall he was ambulating with a walker and ambulating approximately 1 block. He states the pain is localized to the hip. Denies any pain in the knee and ankle. States it hurts to move the hip. Denies any numbness, tingling, or radiation of symptoms. Denies any dizziness or loss of consciousness. <Yassine Mccauley - Last Filed: 08/11/18 12:19> Review of Systems Patient denies any fevers, weight loss, headache, visual changes, hearing loss, chest pain, palpitations, shortness of breath, nausea, vomiting, urinary changes , neck or back pain, skin rashes, weakness or numbness of extremities, or depression. <Yassine Mccauley - Last Filed: 08/11/18 12:19> PMFSH - History History Provided By: Patient - Medical History Medical History: Medical History (Last Reviewed 08/11/18 @ 10:25 by Ez Goff MD) Back pain HTN (hypertension) Right hip pain - Surgical History Surgical History: Surgical History (Last Reviewed 08/11/18 @ 10:25 by Ez Goff MD) History of cataract surgery History of cholecystectomy Status post open reduction with internal fixation (ORIF) of fracture of ankle Onset Date: 12/22/17 - Family History Family History: Family History (Last Updated 08/11/18 @ 10:25 by Ez Goff MD) Other Patient denies significant medical history - Tobacco History Second Hand Smoke Exposure: No Smoking Status: Never smoker - Alcohol History How Often Do You Have a Drink Containing Alcohol: Never - Substance Use History Substance History: No History of Abuse - Travel History Recent Travel in the [place] Within the Last 8 Weeks: No Recent Travel Out of the Country Within the Last 8 Weeks: No - Immunization History Tetanus Immunization: <5 Years Hx Influenza Vaccine This Season: No <Yassine Mccauley - Last Filed: 08/11/18 12:19> - Medical History Medical History: Medical History (Last Reviewed 08/11/18 @ 10:25 by Ez Goff MD) Back pain HTN (hypertension) Right hip pain - Surgical History Surgical History: Surgical History (Last Reviewed 08/11/18 @ 10:25 by Ez Goff MD) History of cataract surgery History of cholecystectomy Status post open reduction with internal fixation (ORIF) of fracture of ankle Onset Date: 12/22/17 - Family History Family History: Family History (Last Updated 08/11/18 @ 10:25 by Ez Goff MD) Other Patient denies significant medical history <Gilberto Meza - Last Filed: 08/12/18 08:38> Medications and Allergies Active Medications: Active Medications Acetaminophen (Tylenol) 650 mg PO Q4H PRN PRN Reason: Temp > 100.4 Hydrocodone Bitart/Acetaminophen ([place] 7.5/325) 1 tab PO Q6H PRN PRN Reason: Acute Pain Ondansetron HCl (Zofran Inj) 4 mg IV.PUSH Q6H PRN PRN Reason: NAUSEA OR VOMITING <Yassine Mccauley - Last Filed: 08/11/18 12:19> <Gilberto Meza - Last Filed: 08/12/18 08:38> Allergies Allergy/AdvReac Type Severity Reaction Status Date / Time lisinopril Allergy Unknown Hives Verified 08/11/18 07:41 Home Medications Medication Instructions Recorded Confirmed Type amlodipine See Label Instructions .ROUTE 08/11/18 08/11/18 History .COMPLEX atorvastatin 20 mg PO DAILY 08/11/18 08/11/18 History gabapentin 300 mg PO BID 08/11/18 08/11/18 History hydrochlorothiazide 25 mg PO DAILY 08/11/18 08/11/18 History tamsulosin [Flomax] 0.4 mg PO DAILY 08/11/18 08/11/18 History Exam Vital signs: Vital Signs 08/11/18 00:05 08/11/18 00:38 08/11/18 04:30 Temperature 98.6 F Pulse Rate Respiratory Rate 20 17 16 Blood Pressure 175/92 H Pulse Oximetry 95 08/11/18 05:30 08/11/18 08:00 08/11/18 12:00 Temperature 98.0 F Pulse Rate 79 68 Respiratory Rate 16 16 18 Blood Pressure 142/78 H 118/59 L Pulse Oximetry 92 L 92 L Intake & Output 08/10/18 08/11/18 08/11/18 18:59 06:59 18:59 Weight 113.469 kg 113.496 kg Other: Weight On Admission 113.496 kg Narrative: General: Well-developed and well-nourished. Resting comfortably in no acute distress Head: Normocephalic and atraumatic Ears: Hearing is intact bilaterally Eyes: Extraocular motion is intact. Pupils are equal round and reactive to light. Neck: No evidence of lymphadenopathy Cranial nerve: II-XII grossly intact Lungs: No use of accessory muscles or breathing and no audible wheezes at bedside Heart: No grade 4 murmur present at bedside Abdomen: Soft and nontender. Musculoskeletal: RLE: Hip is in a flexed position. Extreme stiffness and pain with movement of the hip. Nontender to palpation of the lateral hip, knee or ankle. Full movement of the ankle and toes is full sensation distally. LLE: Full motion of the hip, knee, ankle and toes with minimal discomfort with full sensation distally <Yassine Mccauley - Last Filed: 08/11/18 12:19> Vital signs: Vital Signs 08/11/18 12:00 08/11/18 16:00 Temperature 98.0 F Pulse Rate 68 80 Respiratory Rate 18 16 Blood Pressure 118/59 L 126/61 Pulse Oximetry 92 L 90 L Intake & Output 08/11/18 08/12/18 08/12/18 18:59 06:59 18:59 Weight 113.496 kg Other: Weight On Admission 113.496 kg <Gilberto Meza - Last Filed: 08/12/18 08:38> Results - Labs Result Diagrams: 08/11/18 00:30 08/11/18 00:30 Labs: Laboratory Results - last 24 hr 08/11/18 08/11/18 08/11/18 00:30 00:30 00:30 WBC 8.7 RBC 5.04 Hgb 12.9 L Hct 39.0 MCV 77.3 L MCH 25.6 L MCHC 33.1 RDW 17.1 Plt Count 225 MPV 8.0 Neut % (Auto) 73.6 H Lymph % (Auto) 17.0 [place] % (Auto) 7.7 Eos % (Auto) 1.2 Baso % (Auto) 0.5 Neut # (Auto) 6.4 Lymph # (Auto) 1.5 [place] # (Auto) 0.7 Eos # (Auto) 0.1 Baso # (Auto) 0.0 WBC Differential . Differential Comment Auto diff final PT 10.9 INR 1.1 Sodium 145 Potassium 3.2 L Chloride 104 Carbon Dioxide 28.9 Anion Gap 12 BUN 17 Creatinine 0.96 Estimated GFR 80 L Random Glucose 100 Calcium 8.9 Total Bilirubin 1.3 H AST 21 ALT 24 Alkaline Phosphatase 112 Total Protein 8.1 Albumin 4.0 - Diagnostic results Imaging: Impressions Cervical Spine CT 08/11/18 00:16 CONCLUSION: 1. No acute findings. Moderate degenerative disc disease. Chest X-Ray 08/11/18 00:16 CONCLUSION: Minimal basilar atelectasis. No acute findings. Head CT 08/11/18 00:16 CONCLUSION: 1. No acute intracranial abnormalities. . Hip X-Ray 08/11/18 00:16 CONCLUSION: Advanced osteoarthritis of the right hip. No acute fracture. Knee X-Ray 08/11/18 00:16 CONCLUSION: No acute fracture. Shoulder X-Ray 08/11/18 00:16 CONCLUSION: Moderate osteoarthritis of the left shoulder. No acute bony abnormality. Hip CT 08/11/18 02:58 CONCLUSION: 1. No acute fracture. Advanced osteoarthritis of the right hip. Hip MRI: report reviewed, image reviewed Hip CT: report reviewed, image reviewed <Yassine Mccauley - Last Filed: 08/11/18 12:19> - Labs Result Diagrams: 08/11/18 00:30 08/11/18 00:30 - Diagnostic results Imaging: Impressions Ankle X-Ray 08/11/18 00:00 There is an intramedullary screw traversing the distal fibula with remote fibular fracture identified which demonstrates interval healing. In addition the comminuted tibial fracture noted previously has healed. There are 3 screws traversing the distal tibia. There are degenerative changes identified at the talocalcaneal articulation and talonavicular joint. CONCLUSION: Degenerative changes and remote posttraumatic changes. <Gilberto Meza - Last Filed: 08/12/18 08:38> Assessment and Plan - Problem List (1) Osteoarthritis of right hip Code(s): M16.11 - Unilateral primary osteoarthritis, right hip Status: Acute - Assessment and Plan 1) Right Hip Osteoarthritis 2) healed right ankle fracture Treatment options were discussed with the patient. It appears he is suffering from extreme end-stage osteoarthritis of the right hip. I informed the patient that this is something that can be dealt with on an outpatient basis. I encouraged him to continue ambulating in the continue to try and walk. I informed him that if he wants to have his hip address that he can follow-up with us on an outpatient basis in the office. I had a long conversation with the physical therapist he states that he has been very reluctant to try and walk and has been having extreme pain. If the patient is unable to ambulate secondary to pain, I would recommend a consult to radiology for an intra- articular steroid injection of the right hip. Otherwise, he can follow-up with Dr. Meza an outpatient basis. I will order x-rays of his right ankle today to confirm proper alignment and healing of the previous right ankle fracture. The patient voiced that he understood and agreed with this plan. The above patient was reviewed and discussed with Dr. Meza and he agrees. <Yassine Mccauley - Last Filed: 08/11/18 12:19> - Problem List (1) Osteoarthritis of right hip Code(s): M16.11 - Unilateral primary osteoarthritis, right hip Status: Acute - Assessment and Plan History, past medical history, social history, review of systems, physical exam , radiographs, assessment, and plan were reviewed. Plan of care was discussed and established. Plan on nonoperative treatment. A mid-level provider in my office (nurse practitioner or physician neurosurgical physician assistant) may see this patient on follow-up visits and continue to implement the objectives of this plan including : Starting or adjusting medications, injections, cast application, orthotics, brace application, physical therapy, radiological studies (including x-ray, MRI , CT, ultrasound, bone scan), vascular studies, neurologic studies, specialist consultation, and proceeding with surgical management, as appropriate. <Meza,Gilberto A - Last Filed: 08/12/18 08:38>
--- NOTE | 2018-08-11 14:21 | XR ---
EXAM DATE: 08/11/2018 2:09 PM EDT AGE/SEX: 58 years / Male INDICATIONS: Right ankle pain. Inability to ambulate. Post ORIF right ankle November 2017. CLINICAL DATA: This is the patient's initial encounter. Patient reports that signs and symptoms have been present for 2 days and indicates a pain score of 9/10. MEDICAL/SURGICAL HISTORY: Hypertension. Cholecystectomy. ORIF right ankle. COMPARISON: [facility] – [place] RIGHT COMPLETE ([id number]), 01/04/2018. . FINDINGS: There is an intramedullary screw traversing the distal fibula with remote fibular fracture identified which demonstrates interval healing. In addition the comminuted tibial fracture noted previously has healed. There are 3 screws traversing the distal tibia. There are degenerative changes identified at the talocalcaneal articulation and talonavicular joint. CONCLUSION: Degenerative changes and remote posttraumatic changes. Electronically signed by: Thomas Sawyer MD 08/11/2018 2:19 PM EDT
--- NOTE | 2018-08-11 14:59 | P.DCO ---
- Diagnosis (1) Contusion of hip, right - Physical Therapy Order: Evaluate and treat - Home Health Nursing Order: Medical education - Certification I have seen patient Ganga Galindo on 08/11/18. My clinical findings support the need for the requested home health care services because: High risk of falls I certify that my clinical findings support that this patient is homebound because: Unsteady gait/balance (1) Contusion of hip, right Qualifiers: Encounter type: initial encounter Qualified Code(s): S70.01XA - Contusion of right hip, initial encounter
[2018-08-11 16:53] VITALS: BP 126/61; PULSE 80; RESP 16; O2SAT 90
== END 2018-08-11 18:59 | disposition home or self-care (01) ==
LOC: NEPC 23:55 → NEDA 23:55 → NEPHCDU 08-11 06:55
PROVIDERS: ADMIT Hospitalist; ATTEND Hospitalist

== ENCOUNTER 2018-08-15 16:51 | Inpatient (IN) ==
--- NOTE | 2018-08-15 17:56 | XR ---
EXAM DATE: 08/15/2018 5:52 PM EDT AGE/SEX: 58 years / Male INDICATIONS: Chest pain. CLINICAL DATA: This is the patient's initial encounter. Patient reports that signs and symptoms have been present for 1 day and indicates a pain score of Nonresponsive. MEDICAL/SURGICAL HISTORY: Non-responsive. Non-responsive. COMPARISON: [facility] – [place], CHEST 1V SINGLE AP, 08/11/2018. . FINDINGS: 2 AP views of the chest demonstrate a normal size cardiac silhouette. Lungs are underinflated with at electasis at the lung bases. No effusion, consolidation, or pneumothorax is identified. The bones and soft tissues demonstrate no acute abnormality. There is severe left glenohumeral joint osteoarthriti s. CONCLUSION: Underinflated examination with atelectasis at the lung bases. Otherwise, no acute cardiopulmonary abn ormality is identified. Electronically signed by: Baudilio Jo MD 08/15/2018 5:55 PM EDT
[2018-08-15] MEDS ORDERED: dilTIAZem Inj 125 MG in Sodium Chlor 0.9% Inj 100 ML IV.CONT PRN (18:05)
[2018-08-15 18:12] LABS: Activated Partial Thrombo Time 27.6 sec (24.3-30.1); INR 1.2 Ratio; Prothrombin Time 11.7 sec (9.8-11.6)
[2018-08-15 18:13] LABS: Baso # (Auto) 0.1 th/mm3 (0.0-0.2); Baso % (Auto) 0.6 % (0.0-2.0); Eos # (Auto) 0.1 th/mm3 (0.0-0.4); Hematocrit 40.2 % (39.0-51.0); Hemoglobin 13.3 gm/dL (13.0-17.0); Lymph # (Auto) 1.8 th/mm3 (1.0-4.8); Lymph % (Auto) 21.9 % (9.0-44.0); Mean Corpuscular HGB Conc 33.1 % (32.0-36.0); Mean Corpuscular Hemoglobin 25.9 pg (27.0-34.0); Mean Corpuscular Volume 78.2 fL (80.0-100.0); Mean Platelet Volume 7.9 fL (7.0-11.0); Mono # (Auto) 0.8 th/mm3 (0.0-0.9); Mono % (Auto) 10.2 % (0.0-8.0); Neut # (Auto) 5.3 th/mm3 (1.8-7.7); Neut % (Auto) 66.3 % (16.0-70.0); Platelet Count 246 th/mm3 (150-450); Red Blood Count 5.14 mil/mm3 (4.50-5.90); Red Cell Distribution Width 17.6 % (11.6-17.2)
[2018-08-15 18:20] LABS: Alanine Aminotransferase 20 U/L (12-78); Albumin 3.9 g/dL (3.4-5.0); Anion Gap 12 meq/L (5-15); Aspartate Aminotransferase 18 U/L (15-37); Blood Urea Nitrogen 18 mg/dL (7-18); Calcium 8.9 mg/dL (8.5-10.1); Carbon Dioxide 26.3 meq/L (21.0-32.0); Chloride 106 meq/L (98-107); Glomerular Filtration Rate 63 mL/min (>89); Glucose,Random 114 mg/dL (74-106); Lipase 72 U/L (73-393); Potassium 3.3 meq/L (3.5-5.1); Sodium 144 meq/L (136-145)
[2018-08-15 18:24] LABS: Alkaline Phosphatase 129 U/L (45-117); Creatine Kinase 139 U/L (39-308)
[2018-08-15 18:37] LABS: Creatine Kinase MB 2.6 ng/mL (0.5-3.6)
--- NOTE | 2018-08-15 18:57 | ED ---
HPI General Chief Complaint: Abdominal Pain Stated Complaint: Abd Pain Time Seen by Provider: 08/15/18 17:22 Source: patient Mode of arrival: EMS Limitations: no limitations History of Present Illness HPI narrative: The patient is a 58-year-old male with no significant past medical history other than hypertension that was brought in for evaluation of lower abdominal pain. Patient stated that he was doing some housework try to clean up and started feeling pain. In addition he stated that he has not been feeling very well all day today but did not complain about shortness of breath dizziness headache or chest pain. On arrival he appeared to be in A. fib with RVR and he states that he does not have any diagnosis. MD complaint: abdominal pain Onset (ago): hour(s) (2) Pain Consistency: now resolved Location: LLQ and RLQ Severity: moderate Quality: cramping Radiation: none Associated symptoms: denies other symptoms Related Data Home Medications Medication Instructions Recorded Confirmed atorvastatin 20 mg PO DAILY 08/11/18 08/15/18 gabapentin 300 mg PO BID 08/11/18 08/15/18 tamsulosin [Flomax] 0.4 mg PO DAILY 08/11/18 08/15/18 hydrochlorothiazide 25 mg PO DAILY 08/15/18 08/15/18 omeprazole 20 mg PO HS 08/16/18 08/16/18 Previous Rx's Medication Instructions Recorded aspirin 162 mg PO DAILY tab 08/17/18 diltiazem HCl 240 mg PO DAILY #90 cap 08/17/18 Allergies Allergy/AdvReac Type Severity Reaction Status Date / Time lisinopril Allergy Intermediate Hives Verified 08/15/18 17:15 Review of Systems Constitutional Reports fatigue, Reports malaise and Reports poor appetite PMFSH Medical History Medical History Osteoarthritis (Acute) Back pain (Acute) HTN (hypertension) (Acute) Right hip pain (Acute) Surgical History Surgical History History of cataract surgery (Acute) History of cholecystectomy (Acute) Status post open reduction with internal fixation (ORIF) of fracture of ankle ( Acute 12/22/17) Family History Family History Other Coronary artery disease Diabetes mellitus Social History Social History (Reviewed 09/17/18 @ 19:23 by MARIA TERESA Edward Substance History: No History of Abuse Second Hand Smoke Exposure: No Smoking Status: Never smoker How Often Do You Have a Drink Containing Alcohol: Never Recent Travel in [facility] within the Last 8 Weeks: No Recent Out of Country Travel within the Last 8 Weeks: No Immunization History Tetanus Immunization: >5 Years Hx Influenza Vaccine This Season: No Exam Narrative Exam Narrative: GENERAL: Alert and oriented no distress SKIN: Focused skin assessment warm/dry. HEAD: Atraumatic. Normocephalic. EYES: Pupils equal and round. No scleral icterus. No injection or drainage. ENT: No nasal bleeding or discharge. Mucous membranes pink and moist. NECK: Trachea midline. No JVD. CARDIOVASCULAR: Irregularly irregular rhythm. Tachycardia. No murmur appreciated. RESPIRATORY: No accessory muscle use. Clear to auscultation. Breath sounds equal bilaterally. GASTROINTESTINAL: Abdomen soft, n tenderness to palpation with rebound tenderness., nondistended. Hepatic and splenic margins not palpable. MUSCULOSKELETAL: No obvious deformities. No clubbing. No cyanosis. No edema. NEUROLOGICAL: Awake and alert. No obvious cranial nerve deficits. Motor grossly within normal limits. Normal speech. PSYCHIATRIC: Appropriate mood and affect; insight and judgment normal. Course Hospital Course: Cardizem bolus briefly however he had to be placed on a drip because he returned to [facility] with RVR. Hemodynamically stable.Patient with nonspecific complaint of abdominal pain for which he is getting a CT of the abdomen and pelvis. Appears that he is in A. [facility] with RVR as a new diagnosis. There is no leukocytosis. Hemoglobin is stable. Mildly elevated bilirubin. The patient has a cholecystectomy. Potassium of 3.3. No lactic acidosis. UA was unremarkable. Chest x-ray within normal limits. Reevaluation(s) Reevaluation #1: Brief response to Cardizem bolus. will be placed on Drip Time: 17:25 Initial Documented Vital Signs Temperature 97.7 F 08/15/18 17:00 Pulse Rate 141 H 08/15/18 17:00 Respiratory Rate 18 08/15/18 17:00 Blood Pressure 126/60 08/15/18 17:00 Pulse Oximetry 98 08/15/18 17:00 Last Documented Vital Signs Temperature 97.3 F L 08/17/18 12:00 Pulse Rate 71 08/17/18 13:00 Respiratory Rate 17 08/17/18 12:00 Blood Pressure 107/63 08/17/18 12:00 Pulse Oximetry 98 08/17/18 12:00 Sign Out Sign Out Data: Patient Sign Out occurred on 08/15/18 at 19:38. Patient's care was discussed, and care was transferred from Aiden Hayden DO to Harpreet Velázquez MD. Sign Out Comment: Patient with new onset of A. fib with RVR and abdominal pain. At this time he is on a Cardizem drip with improvement of his rapid ventricular response. Will have a CT abdomen pelvis that is pending results. Care was transitioned to oncoming physician Dr. Velázquez Last updated by Aiden Hayden DO at 08/15/18 19:32 Post-Handoff Eval: Patient care assumed by ok Dr. Velázquez at 1900. Patient with afib RVR new onset. Presentation was abdominal pain. CT abd/pelvis negative. Patient on 10mg/hr of cardizem, still having sustained HR>100 and HR at times to 145. No CP, No SOB, trace pedal edema. D/W Dr. Cristobal for admission. Medical Decision Making MDM Narrative Medical decision making narrative: She had a new onset of A. fib with RVR. He is on Cardizem drip stable vitals. At this time due to abdominal discomfort we ordered a CT abdomen and pelvis and results are pending. [facility] Medical Screen Exam Complete: Yes Emergency Medical Condition: Yes Medical Records Medical records reviewed: Yes I reviewed the patient's medical records. Lab Data Lab results reviewed: Yes I reviewed the patient's lab results. Result diagrams: 08/16/18 05:23 08/16/18 05:23 Lab Results 08/15/18 08/15/18 08/15/18 Range/Units 17:30 17:30 17:30 WBC 8.0 (4.0-11.0) th/mm3 RBC 5.14 (4.50-5.90) mil/mm3 Hgb 13.3 (13.0-17.0) gm/dL Hct 40.2 (39.0-51.0) % MCV 78.2 L (80.0-100.0) fL MCH 25.9 L (27.0-34.0) pg MCHC 33.1 (32.0-36.0) % RDW 17.6 H (11.6-17.2) % Plt Count 246 (150-450) th/mm3 MPV 7.9 (7.0-11.0) fL Neut % (Auto) 66.3 (16.0-70.0) % Lymph % (Auto) 21.9 (9.0-44.0) % [place] % (Auto) 10.2 H (0.0-8.0) % Eos % (Auto) 1.0 (0.0-4.0) % Baso % (Auto) 0.6 (0.0-2.0) % Neut # (Auto) 5.3 (1.8-7.7) th/mm3 Lymph # (Auto) 1.8 (1.0-4.8) th/mm3 [place] # (Auto) 0.8 (0.0-0.9) th/mm3 Eos # (Auto) 0.1 (0.0-0.4) th/mm3 Baso # (Auto) 0.1 (0.0-0.2) th/mm3 WBC Differential . Differential Comment Auto diff final PT 11.7 H (9.8-11.6) sec INR 1.2 Ratio APTT 27.6 (24.3-30.1) sec Sodium 144 (136-145) meq/L Potassium 3.3 L (3.5-5.1) meq/L Chloride 106 (98-107) meq/L Carbon Dioxide 26.3 (21.0-32.0) meq/L Anion Gap 12 (5-15) meq/L BUN 18 (7-18) mg/dL Creatinine 1.18 (0.60-1.30) mg/dL Estimated GFR 63 L (>89) mL/min Random Glucose 114 H (74-106) mg/dL Lactic Acid (0.4-2.0) mmol/L Calcium 8.9 (8.5-10.1) mg/dL Magnesium 2.0 (1.5-2.5) mg/dL Total Bilirubin 1.4 H (0.2-1.0) mg/dL AST 18 (15-37) U/L ALT 20 (12-78) U/L Alkaline Phosphatase 129 H (45-117) U/L Total Creatine Kinase 139 (39-308) U/L CK-MB (CK-2) 2.6 (0.5-3.6) ng/mL Troponin I Less than 0.02 L (0.02-0.05) ng/mL B-Natriuretic Peptide (0-100) pg/mL Total Protein 8.0 (6.4-8.2) g/dL Albumin 3.9 (3.4-5.0) g/dL Lipase 72 L (73-393) U/L TSH (0.358-3.740) uIU/mL 08/15/18 08/15/18 08/16/18 Range/Units 17:30 17:30 05:23 WBC 7.3 (4.0-11.0) th/mm3 RBC 4.87 (4.50-5.90) mil/mm3 Hgb 12.5 L (13.0-17.0) gm/dL Hct 38.7 L (39.0-51.0) % MCV 79.4 L (80.0-100.0) fL MCH 25.6 L (27.0-34.0) pg MCHC 32.3 (32.0-36.0) % RDW 17.3 H (11.6-17.2) % Plt Count 209 (150-450) th/mm3 MPV 7.4 (7.0-11.0) fL Neut % (Auto) (16.0-70.0) % Lymph % (Auto) (9.0-44.0) % [place] % (Auto) (0.0-8.0) % Eos % (Auto) (0.0-4.0) % Baso % (Auto) (0.0-2.0) % Neut # (Auto) (1.8-7.7) th/mm3 Lymph # (Auto) (1.0-4.8) th/mm3 [place] # (Auto) (0.0-0.9) th/mm3 Eos # (Auto) (0.0-0.4) th/mm3 Baso # (Auto) (0.0-0.2) th/mm3 WBC Differential Differential Comment PT (9.8-11.6) sec INR Ratio APTT (24.3-30.1) sec Sodium (136-145) meq/L Potassium (3.5-5.1) meq/L Chloride (98-107) meq/L Carbon Dioxide (21.0-32.0) meq/L Anion Gap (5-15) meq/L BUN (7-18) mg/dL Creatinine (0.60-1.30) mg/dL Estimated GFR (>89) mL/min Random Glucose (74-106) mg/dL Lactic Acid 2.0 (0.4-2.0) mmol/L Calcium (8.5-10.1) mg/dL Magnesium (1.5-2.5) mg/dL Total Bilirubin (0.2-1.0) mg/dL AST (15-37) U/L ALT (12-78) U/L Alkaline Phosphatase (45-117) U/L Total Creatine Kinase (39-308) U/L CK-MB (CK-2) (0.5-3.6) ng/mL Troponin I (0.02-0.05) ng/mL B-Natriuretic Peptide 36 (0-100) pg/mL Total Protein (6.4-8.2) g/dL Albumin (3.4-5.0) g/dL Lipase (73-393) U/L TSH (0.358-3.740) uIU/mL 08/16/18 08/16/18 Range/Units 05:23 05:23 WBC (4.0-11.0) th/mm3 RBC (4.50-5.90) mil/mm3 Hgb (13.0-17.0) gm/dL Hct (39.0-51.0) % MCV (80.0-100.0) fL MCH (27.0-34.0) pg MCHC (32.0-36.0) % RDW (11.6-17.2) % Plt Count (150-450) th/mm3 MPV (7.0-11.0) fL Neut % (Auto) (16.0-70.0) % Lymph % (Auto) (9.0-44.0) % [place] % (Auto) (0.0-8.0) % Eos % (Auto) (0.0-4.0) % Baso % (Auto) (0.0-2.0) % Neut # (Auto) (1.8-7.7) th/mm3 Lymph # (Auto) (1.0-4.8) th/mm3 [place] # (Auto) (0.0-0.9) th/mm3 Eos # (Auto) (0.0-0.4) th/mm3 Baso # (Auto) (0.0-0.2) th/mm3 WBC Differential Differential Comment PT (9.8-11.6) sec INR Ratio APTT (24.3-30.1) sec Sodium 142 (136-145) meq/L Potassium 3.2 L (3.5-5.1) meq/L Chloride 106 (98-107) meq/L Carbon Dioxide 26.1 (21.0-32.0) meq/L Anion Gap 10 (5-15) meq/L BUN 19 H (7-18) mg/dL Creatinine 0.90 (0.60-1.30) mg/dL Estimated GFR 86 L (>89) mL/min Random Glucose 102 (74-106) mg/dL Lactic Acid (0.4-2.0) mmol/L Calcium 8.2 L (8.5-10.1) mg/dL Magnesium (1.5-2.5) mg/dL Total Bilirubin (0.2-1.0) mg/dL AST (15-37) U/L ALT (12-78) U/L Alkaline Phosphatase (45-117) U/L Total Creatine Kinase (39-308) U/L CK-MB (CK-2) (0.5-3.6) ng/mL Troponin I (0.02-0.05) ng/mL B-Natriuretic Peptide (0-100) pg/mL Total Protein (6.4-8.2) g/dL Albumin (3.4-5.0) g/dL Lipase (73-393) U/L TSH 1.300 (0.358-3.740) uIU/mL Imaging Data Radiologist's impression: Abdomen/Pelvis CT 08/15/18 17:23 CONCLUSION: 1. No acute findings within the abdomen and pelvis. 2. Nonacute findings include mild fatty liver, previous cholecystectomy. Small bilateral renal cysts. Advanced osteoarthritis at the bilateral hips. Chest X-Ray 08/15/18 17:23 CONCLUSION: Underinflated examination with atelectasis at the lung bases. Otherwise, no acute cardiopulmonary abnormality is identified. ECG Data Attestation: I personally reviewed and interpreted this ECG as follows: Interpretation: A. fib with RVR at [address]-T wave abnormalities. Normal axis. Discharge Plan Discharge Disposition Patient Disposition: 30 Still Patient Discharge Condition Condition: Good Discharge Order Discharge Orders: Discharge Order (Routine); Ordered 08/17/18 Ordered By: Kaley Shultz Cardiology Clear for Discharge (Routine); Ordered 08/17/18 Ordered By: Hunter Delgado Discharge Details Anticipated Discharge Date: 08/17/18 Diagnosis: Atrial fibrillation with RVR Physicians Team ED Provider: Harpreet Velázquez Primary Care Provider: UNKNOWN, Attending Provider: Kaley Shultz Other Providers: Hunter Delgado ; Nirmal Kinney Discharge Interventions Interventions: ED Discharge Assessment Last Done: 08/15/18 22:40 Status ED Status: Left Department Discharge Information Discharge Date/Time: 08/15/18 22:45
--- NOTE | 2018-08-15 19:49 | CT ---
EXAM DATE: 08/15/2018 7:18 PM EDT AGE/SEX: 58 years / Male INDICATIONS: Abdomen pain with rebound tenderness. CLINICAL DATA: This is the patient's initial encounter. Patient reports that signs and symptoms have been present for 1 day and indicates a pain score of 7/10. MEDICAL/SURGICAL HISTORY: Hypertension. Cholecystectomy. ORAL CONTRAST: No oral contrast ingested. RADIATION DOSE: 12.82 CTDI (mGy) COMPARISON: [facility] [place], CT ABDOMEN & PELVIS W CONTRAST, 01/04/2018. . TECHNIQUE: Multiple contiguous axial images were obtained through the abdomen and pelvis following b olus infusion of 97 ml Omnipaque 350 (iohexol) nonionic water-soluble contrast as a single exam dos e. No oral contrast ingested. Using automated exposure control and adjustment of the mA and/or kV ac cording to patient size, radiation dose was kept as low as reasonably achievable to obtain optimal di agnostic quality images. DICOM format image data is available electronically for review and comparis on. FINDINGS: The lung bases are clear. No acute findings in the liver, spleen, adrenals, kidneys or pancreas. Smal l bilateral renal cysts are stable compared with December. Small nonobstructing 3 mm left renal calcu vazquez. No bowel obstruction. No free air or free fluid. Colonic diverticula without diverticulitis. There is fat in both inguinal canals. Advanced osteoarthritis of the bilateral hips. Mild scoliosis. CONCLUSION: 1. No acute findings within the abdomen and pelvis. 2. Nonacute findings include mild fatty liver, previous cholecystectomy. Small bilateral renal cysts . Advanced osteoarthritis at the bilateral hips. Electronically signed by: Andres Crowder MD 08/15/2018 7:47 PM EDT
--- NOTE | 2018-08-15 22:03 | P.HP ---
History of Present Illness Service: [facility] Primary Care Physician: UNKNOWN History of Present Illness: 58-year-old male with past medical history significant for hypertension and hyperlipidemia presents to the emergency department for evaluation of fatigue, abdominal pain and shortness of breath. The patient reports he was cleaning his apartment when he suddenly felt tired and short of breath and had to stop. He came to the emergency department for further evaluation and was found to be in A. fib with RVR. The patient has no history of atrial fibrillation. 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 He denies any chest pain. No fevers/chills. No nausea/vomiting/diarrhea. No lateralizing signs/symptoms. Inpatient Certification: I certify that the inpatient services were ordered in accordance with Medicare regulations governing the order. This includes certification that hospital inpatient services are reasonable and necessary and in the case of services not specified as inpatient-only under 42 CFR 419.22(n), that they are appropriately provided as inpatient services in accordance to with the 2-midnight benchmark under 43 CFR 412.3(e) Estimated Total Length of Stay (Days): 2 Plans for Post Hospital Care: Home Review of Systems All other systems reviewed negative except as stated in HPI PMFSH - History History Provided By: Patient - Medical History Medical History: Medical History (Last Reviewed 08/15/18 @ 21:58 by Verna Cristobal MD) Osteoarthritis Back pain HTN (hypertension) Right hip pain - Surgical History Surgical History: Surgical History (Last Reviewed 08/15/18 @ 21:58 by Verna Cristobal MD) History of cataract surgery History of cholecystectomy Status post open reduction with internal fixation (ORIF) of fracture of ankle Onset Date: 12/22/17 - Family History Family History: Family History (Last Updated 08/15/18 @ 21:57 by Verna Cristobal MD) Other Coronary artery disease Diabetes mellitus - Tobacco History Second Hand Smoke Exposure: No Smoking Status: Never smoker - Alcohol History How Often Do You Have a Drink Containing Alcohol: Never - Substance Use History Substance History: No History of Abuse - Travel History Recent Travel in the [place] Within the Last 8 Weeks: No Recent Travel Out of the Country Within the Last 8 Weeks: No - Immunization History Tetanus Immunization: >5 Years Hx Influenza Vaccine This Season: No Medications and Allergies Active Medications: Active Medications Diltiazem HCl 125 mg/ Sodium (Chloride) 125 mls @ 5 mls/hr IV.CONT TITRATE PRN ; Protocol PRN Reason: Per Protocol Last Titration: 08/15/18 19:00 Dose: 10 mg/hr, 10 mls/hr Sodium Chloride (Ns Flush) 2 ml IV.FLUSH UNSCH PRN PRN Reason: FLUSH AFTER USING IV ACCESS Last Admin: 08/15/18 17:27 Dose: 2 ml Allergies Allergy/AdvReac Type Severity Reaction Status Date / Time lisinopril Allergy Intermediate Hives Verified 08/15/18 17:15 Home Medications Medication Instructions Recorded Confirmed Type atorvastatin 20 mg PO DAILY 08/11/18 08/15/18 History gabapentin 300 mg PO BID 08/11/18 08/15/18 History hydrochlorothiazide 25 mg PO DAILY 08/11/18 08/15/18 History tamsulosin [Flomax] 0.4 mg PO DAILY 08/11/18 08/15/18 History amlodipine 10 mg PO DAILY 08/15/18 08/15/18 History amlodipine 10 mg PO DAILY 08/15/18 08/15/18 History hydrochlorothiazide 25 mg PO DAILY 08/15/18 08/15/18 History Exam Vital signs: Vital Signs 08/15/18 17:00 08/15/18 17:23 08/15/18 18:39 Temperature 97.7 F 97.8 F 97.9 F Pulse Rate 141 H 136 H 119 H Pulse Rate [Right Brachial] 118 H Respiratory Rate 18 18 20 Blood Pressure 126/60 129/78 Blood Pressure [Left Arm] 123/67 Blood Pressure [Right Arm] 130/72 Pulse Oximetry 98 98 99 08/15/18 19:00 08/15/18 21:00 Temperature Pulse Rate 138 H 105 H Pulse Rate [Right Brachial] Respiratory Rate 15 19 Blood Pressure 124/57 L 117/69 Blood Pressure [Left Arm] Blood Pressure [Right Arm] Pulse Oximetry 98 Intake & Output 08/15/18 08/15/18 08/16/18 06:59 18:59 06:59 Weight 117.934 kg Narrative: Gen.: No acute distress Head: Normocephalic. Atraumatic. EENT: Pupils equal round and reactive to light. Nose without drainage. Airway intact. Throat without injection. Cardiovascular: Tachycardic. Irregularly irregular rhythm. No murmurs, rubs or gallops. Respiratory: Lungs clear to auscultation bilaterally. No wheezes or rhonchi. Abdomen: Soft, nontender, nondistended. No peritoneal signs. Musculoskeletal: No gross deformities. No edema. Skin: No obvious rashes or erythema. Neuro: Sensory and motor grossly intact. Cranial nerves II through XII grossly intact. Results - Labs CBC & Chem 7: 08/15/18 17:30 08/15/18 17:30 Labs: Laboratory Results - last 24 hr 08/15/18 08/15/18 08/15/18 17:30 17:30 17:30 WBC 8.0 RBC 5.14 Hgb 13.3 Hct 40.2 MCV 78.2 L MCH 25.9 L MCHC 33.1 RDW 17.6 H Plt Count 246 MPV 7.9 Neut % (Auto) 66.3 Lymph % (Auto) 21.9 [place] % (Auto) 10.2 H Eos % (Auto) 1.0 Baso % (Auto) 0.6 Neut # (Auto) 5.3 Lymph # (Auto) 1.8 [place] # (Auto) 0.8 Eos # (Auto) 0.1 Baso # (Auto) 0.1 WBC Differential . Differential Comment Auto diff final PT 11.7 H INR 1.2 APTT 27.6 Sodium 144 Potassium 3.3 L Chloride 106 Carbon Dioxide 26.3 Anion Gap 12 BUN 18 Creatinine 1.18 Estimated GFR 63 L Random Glucose 114 H Lactic Acid Calcium 8.9 Magnesium 2.0 Total Bilirubin 1.4 H AST 18 ALT 20 Alkaline Phosphatase 129 H Total Creatine Kinase 139 CK-MB (CK-2) 2.6 Troponin I Less than 0.02 L B-Natriuretic Peptide Total Protein 8.0 Albumin 3.9 Lipase 72 L 08/15/18 08/15/18 17:30 17:30 WBC RBC Hgb Hct MCV MCH MCHC RDW Plt Count MPV Neut % (Auto) Lymph % (Auto) [place] % (Auto) Eos % (Auto) Baso % (Auto) Neut # (Auto) Lymph # (Auto) [place] # (Auto) Eos # (Auto) Baso # (Auto) WBC Differential Differential Comment PT INR APTT Sodium Potassium Chloride Carbon Dioxide Anion Gap BUN Creatinine Estimated GFR Random Glucose Lactic Acid 2.0 Calcium Magnesium Total Bilirubin AST ALT Alkaline Phosphatase Total Creatine Kinase CK-MB (CK-2) Troponin I B-Natriuretic Peptide 36 Total Protein Albumin Lipase - Imaging Impressions Abdomen/Pelvis CT 08/15/18 17:23 CONCLUSION: 1. No acute findings within the abdomen and pelvis. 2. Nonacute findings include mild fatty liver, previous cholecystectomy. Small bilateral renal cysts. Advanced osteoarthritis at the bilateral hips. Chest X-Ray 08/15/18 17:23 CONCLUSION: Underinflated examination with atelectasis at the lung bases. Otherwise, no acute cardiopulmonary abnormality is identified. Caprini VTE Risk Assessment Caprini VTE Risk Assessment: Moderate/High Risk (score >= 2) Caprini Risk Assessment Model: Point Value = 1 Point Value = 2 Point Value = 3 Point Value = 5 Age 41-60 Minor surgery BMI > 25 kg/m2 Swollen legs Varicose veins or History of unexplained or recurrent spontaneous Oral contraceptives or hormone replacement Sepsis (< 1 month) Serious lung disease, including pneumonia (< 1 month) Abnormal pulmonary function Acute myocardial infarction Congestive heart failure (< 1 month) History of inflammatory bowel disease Medical patient at bed rest Age 61-74 Arthroscopic surgery Major open surgery (> 45 min) Laparoscopic surgery (> 45 min) Malignancy Confined to bed (> 72 hours) Immobilizing plaster cast Central venous access Age >= 75 History of VTE Family history of VTE Factor V Leiden Prothrombin [id number] Lupus anticoagulant Anticardiolipin antibodies Elevated serum homocysteine Heparin-induced thrombocytopenia Other congenital or acquired thrombophilia Stroke (< 1 month) Elective arthroplasty Hip, pelvis, or leg fracture Acute spinal cord injury (< 1 month) Prophylaxis Regimen: Total Risk Factor Score Risk Level Prophylaxis Regimen 0-1 Low Early ambulation 2 Moderate Order ONE of the following: *Sequential Compression Device (SCD) *Heparin 5000 units SQ BID 3-4 Higher Order ONE of the following medications: *Heparin 5000 units SQ TID *Enoxaparin/Lovenox 40 mg SQ daily (WT < 150 kg, CrCl > 30 mL/min) *Enoxaparin/Lovenox 30 mg SQ daily (WT < 150 kg, CrCl > 10-29 mL/min) *Enoxaparin/Lovenox 30 mg SQ BID (WT < 150 kg, CrCl > 30 mL/min) AND/OR *Sequential Compression Device (SCD) 5 or more Highest Order ONE of the following medications: *Heparin 5000 units SQ TID (Preferred with Epidurals) *Enoxaparin/Lovenox 40 mg SQ daily (WT < 150 kg, CrCl > 30 mL/min) *Enoxaparin/Lovenox 30 mg SQ daily (WT < 150 kg, CrCl > 10-29 mL/min) *Enoxaparin/Lovenox 30 mg SQ BID (WT < 150 kg, CrCl > 30 mL/min) AND *Sequential Compression Device (SCD) Assessment and Plan - Plan Assessment/plan: 1. Atrial fibrillation with rapid ventricular response EKG significant for A. fib with RVR, no signs of ischemia, personally reviewed Diltiazem bolus and drip Therapeutic Lovenox Echo pending Cardiology consulted, appreciate assistance 2. Hypertension/hyperlipidemia Continue home medications FEN Cardiac diet Electrolytes: Status post p.o. repletion of potassium, monitor BMP Lovenox
[2018-08-15] MEDS: Enoxaparin Inj 100 MG/ML Syringe SQ SCH (22:30)
[2018-08-16] MEDS: Pantoprazole Sodium 20 MG DR Tablet PO SCH ×2 (03:38→21:42)
[2018-08-16 05:34] LABS: Hematocrit 38.7 % (39.0-51.0); Hemoglobin 12.5 gm/dL (13.0-17.0); Mean Corpuscular HGB Conc 32.3 % (32.0-36.0); Mean Corpuscular Hemoglobin 25.6 pg (27.0-34.0); Mean Corpuscular Volume 79.4 fL (80.0-100.0); Mean Platelet Volume 7.4 fL (7.0-11.0); Platelet Count 209 th/mm3 (150-450); Red Blood Count 4.87 mil/mm3 (4.50-5.90); Red Cell Distribution Width 17.3 % (11.6-17.2); White Blood Count 7.3 th/mm3 (4.0-11.0)
[2018-08-16 06:10] LABS: Calcium 8.2 mg/dL (8.5-10.1); Carbon Dioxide 26.1 meq/L (21.0-32.0); Potassium 3.2 meq/L (3.5-5.1)
--- NOTE | 2018-08-16 08:10 | ECG ---
Date Performed: 08/15/2018 Time Performed: 17:10:02 PTAGE: 58 years EKG: ATRIAL FIBRILLATION WITH RAPID VENTRICULAR RESPONSE NONSPECIFIC ST T-WAVE CHANGES Compared to previous tracing the patient is now in atrial fibrillation ABNORMAL RHYTHM ECG PREVIOUS TRACING : 01/04/18 DOCTOR: Marta Prajapati Interpretating Date/Time 08/16/2018 08:08:59
[2018-08-16] MEDS: Gabapentin 300 MG Capsule PO SCH ×2 (08:57→21:41)
[2018-08-16] MEDS: hydroCHLOROthiazide 25 MG Tablet PO SCH (08:57)
[2018-08-16] MEDS ORDERED: amLODIPine 10 MG Tablet PO SCH (09:00)
--- NOTE | 2018-08-16 09:38 | MB ---
cc: Hunter Delgado MD DATE: 08/16/2018 REASON FOR CONSULTATION: Atrial fibrillation. HISTORY OF PRESENT ILLNESS: The patient is a 58-year-old white male with a history of hypertension, GI bleed earlier this year, hyperlipidemia, benign prostatic hypertrophy, who was in his usual state of health up until yesterday afternoon when he began to experience fairly severe generalized weakness, mild diffuse abdominal pain. The patient was concerned as his symptoms were similar to symptoms he experienced at the time of his GI bleed. He denies melena, bright red blood per rectum, chest pain, lightheadedness, syncope, near syncope. Yesterday afternoon, he did experience minimal fluttering palpitations as well as mild shortness of breath. He denies paroxysmal nocturnal dyspnea, pedal edema, fevers. PAST MEDICAL HISTORY: 1. Hypertension. 2. GI bleed 12/2017, with endoscopy revealing duodenitis, gastritis, hemorrhoids. 3. Hyperlipidemia. 4. Benign prostatic hypertrophy. PAST SURGICAL HISTORY: 1. Open reduction and internal fixation of right tibial/fibular fractures, 12/22/2017. 2. Cataract surgery. 3. Cholecystectomy. CARDIAC MEDICATIONS AT HOME: Hydrochlorothiazide 25 mg daily, atorvastatin 20 mg at bedtime, amlodipine 10 mg daily. ALLERGIES: LISINOPRIL. FAMILY HISTORY: There is no significant family history of early myocardial infarction. SOCIAL HISTORY: The patient denies alcohol or tobacco abuse. REVIEW OF SYSTEMS: As in the history of present illness, otherwise negative or noncontributory. He also denies headache, unilateral weakness or numbness, vomiting. PHYSICAL EXAMINATION: VITAL SIGNS: His blood pressure 126/76 with pulse of 67, respirations 16. GENERAL: He is a well-developed, well-nourished white male, in no acute distress. NECK: Jugular venous pressure is normal. Carotid pulses are 2+ bilaterally and without bruits. CHEST: Reveals unlabored respiratory effort with clear lungs strong. CARDIAC: He has a regular rhythm and rate with a grade II/ systolic ejection murmur heard at the right upper sternal border. The S2 heart sound is normal. No gallop is audible. ABDOMEN: He has a soft, nontender abdomen. Bowel sounds are present. There is no definite hepatosplenomegaly. EXTREMITIES: Reveals no clubbing, cyanosis, or edema. LABORATORY DATA: Includes WBC 7.3, hemoglobin 12.5, platelets 209. Potassium 3.2, BUN 19, creatinine 0.90. Negative cardiac enzymes. EKG from 08/15/2018 at 5:10 p.m., shows atrial fibrillation with a rapid ventricular response, otherwise normal EKG. Chest x-ray shows no acute disease. IMPRESSION: Paroxysmal atrial fibrillation in this 58-year-old white male with a history of hypertension, gastrointestinal bleed earlier this year, hyperlipidemia. At this time, he is back in sinus rhythm. He did seem to be [id number] symptomatic with the dysrhythmia (generalized weakness, shortness of breath, palpitations). There is no definite evidence for acute coronary syndrome. The etiology of his atrial fibrillation may be his history of hypertension. Overall, his thromboembolic risk is low. He did have an echocardiogram 11/2017, showing normal left ventricular function. RECOMMENDATIONS: 1. Daily aspirin. 2. Change the intravenous Cardizem to oral administration and stop amlodipine. 3. He can be discharged home later today or tomorrow from a cardiac standpoint if he remains stable. MD LISA Mondragon/kelsi , 08:40 AM , 08:48 AM MTDD
[2018-08-16] MEDS: dilTIAZem CD 240 MG Capsule PO SCH (10:40)
[2018-08-16] MEDS: Enoxaparin Inj 100 MG/ML Syringe SQ SCH ×2 (10:41→21:42)
[2018-08-16] MEDS ORDERED: Bisacodyl 10 MG Supp RECTAL PRN (10:42)
--- NOTE | 2018-08-16 10:49 | P.PN ---
Subjective Interval history: Follow up for abdominal pain, Afib. Patient is currently resting in bed. No chest pain, shortness of breath, fever or chills. He does complain of left- sided abdominal discomfort. Physical Exam Vital signs: Vital Signs 08/15/18 17:00 08/15/18 17:23 08/15/18 18:39 Temperature 97.7 F 97.8 F 97.9 F Pulse Rate 141 H 136 H 119 H Pulse Rate [Right Brachial] 118 H Respiratory Rate 18 18 20 Blood Pressure 126/60 129/78 Blood Pressure [Left Arm] 123/67 Blood Pressure [Right Arm] 130/72 Pulse Oximetry 98 98 99 08/15/18 19:00 08/15/18 21:00 08/15/18 23:00 Temperature 98.1 F Pulse Rate 138 H 105 H 112 H Pulse Rate [Right Brachial] Respiratory Rate 15 19 16 Blood Pressure 124/57 L 117/69 102/64 Blood Pressure [Left Arm] Blood Pressure [Right Arm] Pulse Oximetry 98 98 08/15/18 23:30 08/16/18 00:00 08/16/18 01:00 Temperature Pulse Rate 72 77 74 Pulse Rate [Right Brachial] Respiratory Rate Blood Pressure 114/63 Blood Pressure [Left Arm] Blood Pressure [Right Arm] Pulse Oximetry 08/16/18 02:00 08/16/18 03:00 08/16/18 04:00 Temperature 97.8 F Pulse Rate 71 72 71 Pulse Rate [Right Brachial] Respiratory Rate 16 Blood Pressure 126/76 Blood Pressure [Left Arm] Blood Pressure [Right Arm] Pulse Oximetry 97 08/16/18 05:00 08/16/18 06:00 08/16/18 07:00 Temperature Pulse Rate 72 67 68 Pulse Rate [Right Brachial] Respiratory Rate Blood Pressure Blood Pressure [Left Arm] Blood Pressure [Right Arm] Pulse Oximetry 08/16/18 08:00 08/16/18 09:00 08/16/18 10:00 Temperature 97.9 F Pulse Rate 70 79 78 Pulse Rate [Right Brachial] Respiratory Rate 19 Blood Pressure 141/73 H Blood Pressure [Left Arm] Blood Pressure [Right Arm] Pulse Oximetry 95 Intake & Output 08/15/18 08/16/18 08/16/18 18:59 06:59 18:59 Intake Total 480 / 480 Output Total 400 / 400 Balance 80 / 80 Weight 117.934 kg 117.8 kg Intake: Oral 480 / 480 Output: Urine 400 / 400 Other: Date of Last Bowel Movement 08/14/18 # Bowel Movements 0 Narrative: GENERAL: Alert, oriented x3, NAD. SKIN: Warm and dry. HEAD: Normocephalic. EYES: No scleral icterus. No injection or drainage. NECK: Supple, trachea midline. No JVD or lymphadenopathy. CARDIOVASCULAR: Regular rate and rhythm without murmurs, gallops, or rubs. RESPIRATORY: Breath sounds equal bilaterally. No accessory muscle use. GASTROINTESTINAL: Abdomen soft, non-tender except mild tenderness on the left upper and lower quadrant especially upper, nondistended. MUSCULOSKELETAL: No cyanosis, or edema. BACK: Nontender without obvious deformity. No CVA tenderness. Results - Labs CBC & Chem 7: 08/16/18 05:23 08/16/18 05:23 Laboratory Results - last 24 hr 08/15/18 08/15/18 08/15/18 17:30 17:30 17:30 WBC 8.0 RBC 5.14 Hgb 13.3 Hct 40.2 MCV 78.2 L MCH 25.9 L MCHC 33.1 RDW 17.6 H Plt Count 246 MPV 7.9 Neut % (Auto) 66.3 Lymph % (Auto) 21.9 [place] % (Auto) 10.2 H Eos % (Auto) 1.0 Baso % (Auto) 0.6 Neut # (Auto) 5.3 Lymph # (Auto) 1.8 [place] # (Auto) 0.8 Eos # (Auto) 0.1 Baso # (Auto) 0.1 WBC Differential . Differential Comment Auto diff final PT 11.7 H INR 1.2 APTT 27.6 Sodium 144 Potassium 3.3 L Chloride 106 Carbon Dioxide 26.3 Anion Gap 12 BUN 18 Creatinine 1.18 Estimated GFR 63 L Random Glucose 114 H Lactic Acid Calcium 8.9 Magnesium 2.0 Total Bilirubin 1.4 H AST 18 ALT 20 Alkaline Phosphatase 129 H Total Creatine Kinase 139 CK-MB (CK-2) 2.6 Troponin I Less than 0.02 L B-Natriuretic Peptide Total Protein 8.0 Albumin 3.9 Lipase 72 L TSH 08/15/18 08/15/18 08/16/18 17:30 17:30 05:23 WBC 7.3 RBC 4.87 Hgb 12.5 L Hct 38.7 L MCV 79.4 L MCH 25.6 L MCHC 32.3 RDW 17.3 H Plt Count 209 MPV 7.4 Neut % (Auto) Lymph % (Auto) [place] % (Auto) Eos % (Auto) Baso % (Auto) Neut # (Auto) Lymph # (Auto) [place] # (Auto) Eos # (Auto) Baso # (Auto) WBC Differential Differential Comment PT INR APTT Sodium Potassium Chloride Carbon Dioxide Anion Gap BUN Creatinine Estimated GFR Random Glucose Lactic Acid 2.0 Calcium Magnesium Total Bilirubin AST ALT Alkaline Phosphatase Total Creatine Kinase CK-MB (CK-2) Troponin I B-Natriuretic Peptide 36 Total Protein Albumin Lipase TSH 08/16/18 08/16/18 05:23 05:23 WBC RBC Hgb Hct MCV MCH MCHC RDW Plt Count MPV Neut % (Auto) Lymph % (Auto) [place] % (Auto) Eos % (Auto) Baso % (Auto) Neut # (Auto) Lymph # (Auto) [place] # (Auto) Eos # (Auto) Baso # (Auto) WBC Differential Differential Comment PT INR APTT Sodium 142 Potassium 3.2 L Chloride 106 Carbon Dioxide 26.1 Anion Gap 10 BUN 19 H Creatinine 0.90 Estimated GFR 86 L Random Glucose 102 Lactic Acid Calcium 8.2 L Magnesium Total Bilirubin AST ALT Alkaline Phosphatase Total Creatine Kinase CK-MB (CK-2) Troponin I B-Natriuretic Peptide Total Protein Albumin Lipase TSH 1.300 - Imaging Impressions Abdomen/Pelvis CT 08/15/18 17:23 CONCLUSION: 1. No acute findings within the abdomen and pelvis. 2. Nonacute findings include mild fatty liver, previous cholecystectomy. Small bilateral renal cysts. Advanced osteoarthritis at the bilateral hips. Chest X-Ray 08/15/18 17:23 CONCLUSION: Underinflated examination with atelectasis at the lung bases. Otherwise, no acute cardiopulmonary abnormality is identified. Assessment and Plan - Assessment (1) Atrial fibrillation with RVR Code(s): I48.91 - Unspecified atrial fibrillation Status: Acute - Plan Mr. Galindo is a 58-year-old male with past medical history significant for hypertension and hyperlipidemia presents to the emergency department on 2017 for evaluation of fatigue, abdominal pain and shortness of breath. ED evaluation indicated atrial fibrillation with RVR. New onset atrial fibrillation with RVR -Echo pending today. Cardiology evaluated patient. -Continue aspirin for A. fib related to stroke prophylaxis. Patient's [id number] score is 1 (HTN) -Continue Cardizem long-acting 240 mg daily. -TSH within normal range. Left sided abdominal pain - No clear etiology. Last BM 2 days ago. Will encourage patient to take some laxatives. - CT abd/pelvis did not show any acute findings. Hypertension Hyperlipidemia -Continue HCTZ 25 mg daily. Cardiology discontinued amlodipine. -Continue atorvastatin 20 mg p.o. daily GERD BPH -Continue PPI as well as tamsulosin. Full code. Ambulation. Discharge plan: Likely discharge in the AM on 08/17/2018.
--- NOTE | 2018-08-16 16:24 | ECHRPT ---
CONCLUSIONS Normal left ventricular size. Mild concentric left ventricular hypertrophy. The left ventricular systolic function is normal with an estimated ejection fraction in the range of 55-60%. There is trace tricuspid valve regurgitation. BP: / HR: Rhythm: MEASUREMENTS (Male / Female) Normal Values Technical Quality:Technically difficult study 2D ECHO LV Diastolic Diameter PLAX 4.6 cm 4.2 - 5.9 / 3.9 - 5.3 cm LV Systolic Diameter PLAX 3.3 cm IVS Diastolic Thickness 1.2 cm 0.6 - 1.0 / 0.6 - 0.9 cm LVPW Diastolic Thickness 1.3 cm 0.6 - 1.0 / 0.6 - 0.9 cm LV Relative Wall Thickness 0.6 RV Internal Dim ED PLAX 3.4 cm LVOT Diameter 1.8 cm LV Ejection Fraction MOD 4C 54.5 % LV Ejection Fraction 4C AL 56.1 % M-MODE Aortic Root Diameter MM 4.1 cm LA Systolic Diameter MM 5.0 cm LA Ao Ratio MM 1.2 AV Cusp Separation MM 2.4 cm DOPPLER AV Peak Velocity 249.0 cm/s AV Peak Gradient 24.8 mmHg AV Mean Gradient 12.0 mmHg AV Velocity Time Integral 41.8 cm LVOT Peak Velocity 132.0 cm/s LVOT Peak Gradient 7.0 mmHg LVOT Velocity Time Integral 25.6 cm AV Area Cont Eq vti 1.6 cm AV Area Cont Eq pk 1.3 cm Mitral E Point Velocity 67.1 cm/s Mitral A Point Velocity 68.6 cm/s Mitral E to A Ratio 1.0 LV E' Lateral Velocity 13.5 cm/s Mitral E to LV E' Lateral Ratio 5.0 LV E' Septal Velocity 6.2 cm/s Mitral E to LV E' Septal Ratio 10.8 TR Peak Velocity 191.0 cm/s TR Peak Gradient 14.6 mmHg Right Atrial Pressure 10.0 mmHg Pulmonary Artery Systolic Pressu 24.6 mmHg Right Ventricular Systolic Press 24.6 mmHg PV Peak Velocity 121.0 cm/s PV Peak Gradient 5.9 mmHg FINDINGS LEFT VENTRICLE Normal left ventricular size. Mild concentric left ventricular hypertrophy. The left ventricular systolic function is normal with an estimated ejection fraction in the range of 55-60%. RIGHT VENTRICLE Normal right ventricular size and systolic function. LEFT ATRIUM The left atrial size is normal. RIGHT ATRIUM The right atrial size is normal. ATRIAL SEPTUM Normal atrial septal thickness without atrial level shunting by limited color doppler interrogation. AORTA The aortic root and proximal ascending aorta are normal in size on limited imaging. MITRAL VALVE Structurally normal mitral valve. No mitral valve stenosis or regurgitation. AORTIC VALVE Trileaflet aortic valve. No aortic valve stenosis or regurgitation. TRICUSPID VALVE There is trace tricuspid valve regurgitation. The estimated pulmonary arterial pressure is 24 mmHg. PULMONARY VALVE No pulmonary valve regurgitation or stenosis. VESSELS The inferior vena cava is normal in size. PERICARDIUM No pericardial effusion. Marco A Mclean MD, FACC (Electronically Signed) Final Date:16 August 2018 16:23
--- NOTE | 2018-08-16 18:13 | ECG ---
Date Performed: 08/16/2018 Time Performed: 10:58:42 PTAGE: 58 years EKG: Sinus rhythm Nonspecific ST-T wave changes. When compared to previousn tracing, patient is no longer in atrial Fi brillation. Abnormal ECG PREVIOUS TRACING : 08/15/2019 17.10.02 DOCTOR: Marta Prajapati Interpretating Date/Time 08/16/2018 18:11:51
[2018-08-17] MEDS: dilTIAZem CD 240 MG Capsule PO SCH (10:34)
[2018-08-17] MEDS: hydroCHLOROthiazide 25 MG Tablet PO SCH (10:35)
[2018-08-17] MEDS: Gabapentin 300 MG Capsule PO SCH (10:35)
[2018-08-17] MEDS: Enoxaparin Inj 100 MG/ML Syringe SQ SCH (10:36)
--- NOTE | 2018-08-17 11:29 | P.PN ---
Subjective Interval history: Follow up for abdominal pain, Afib. Patient is currently doing well. As any chest pain, shortness of breath, fever or chills. Abdominal pain is resolved. Had bowel movements. Physical Exam Vital signs: Vital Signs 08/16/18 11:42 08/16/18 12:00 08/16/18 13:00 Temperature 98.2 F Pulse Rate 74 70 Respiratory Rate 19 Blood Pressure 127/71 Pulse Oximetry 96 08/16/18 14:00 08/16/18 15:00 08/16/18 16:00 Temperature Pulse Rate 72 76 70 Respiratory Rate Blood Pressure Pulse Oximetry 08/16/18 17:00 08/16/18 18:00 08/16/18 19:00 Temperature 98 F Pulse Rate 70 64 64 Respiratory Rate 19 Blood Pressure 117/65 Pulse Oximetry 08/16/18 20:00 08/16/18 21:00 08/16/18 22:00 Temperature 97.7 F Pulse Rate 62 66 68 Respiratory Rate 16 Blood Pressure 113/58 L Pulse Oximetry 95 08/16/18 23:00 08/17/18 00:00 08/17/18 01:00 Temperature 97.8 F Pulse Rate 70 67 64 Respiratory Rate 16 Blood Pressure 119/64 Pulse Oximetry 95 08/17/18 02:00 08/17/18 03:00 08/17/18 04:00 Temperature 97.8 F Pulse Rate 60 60 69 Respiratory Rate 16 Blood Pressure 119/69 Pulse Oximetry 93 L 08/17/18 05:00 08/17/18 06:00 08/17/18 07:00 Temperature Pulse Rate 55 L 70 59 L Respiratory Rate Blood Pressure Pulse Oximetry 08/17/18 08:00 08/17/18 09:00 08/17/18 10:00 Temperature 97.6 F Pulse Rate 61 70 69 Respiratory Rate 18 Blood Pressure 128/78 Pulse Oximetry 96 Intake & Output 08/16/18 08/17/18 08/17/18 18:59 06:59 18:59 Intake Total 560 / 560 480 / 480 Output Total 1050 / 1050 400 / 400 Balance -490 / -490 80 / 80 Weight 113.1 kg Intake: IV 80 / 80 Cardizem Inj 125 MG In NS Inj 80 / 80 100 ML @ 5 MG/HR 5 mls/hr IV. CONT TITRATE PRN Rx#:[id number] Oral 480 / 480 480 / 480 Output: Urine 1050 / 1050 400 / 400 Other: # Voids 2 Date of Last Bowel Movement 08/16/18 08/16/18 08/16/18 # Bowel Movements 0 Narrative: GENERAL: Alert, oriented x3, NAD. SKIN: Warm and dry. HEAD: Normocephalic. EYES: No scleral icterus. No injection or drainage. NECK: Supple, trachea midline. No JVD or lymphadenopathy. CARDIOVASCULAR: Regular rate and rhythm without murmurs, gallops, or rubs. RESPIRATORY: Breath sounds equal bilaterally. No accessory muscle use. GASTROINTESTINAL: Abdomen soft, nontender, nondistended. MUSCULOSKELETAL: No cyanosis, or edema. BACK: Nontender without obvious deformity. No CVA tenderness. Results - Labs CBC & Chem 7: 08/16/18 05:23 08/16/18 05:23 Assessment and Plan - Assessment (1) Atrial fibrillation with RVR Code(s): I48.91 - Unspecified atrial fibrillation Status: Acute - Plan Mr. Galindo is a 58-year-old male with past medical history significant for hypertension and hyperlipidemia presents to the emergency department on 2017 for evaluation of fatigue, abdominal pain and shortness of breath. ED evaluation indicated atrial fibrillation with RVR. New onset atrial fibrillation with RVR -Echo shows EF 55-60%. Cardiology evaluated patient. -Continue aspirin for A. fib related to stroke prophylaxis. Patient's [id number] score is 1 (HTN) -Continue Cardizem long-acting 240 mg daily. -TSH within normal range. Left sided abdominal pain - Likely related to lack of bowel movements. Currently resolved. - CT abd/pelvis did not show any acute findings. Hypertension Hyperlipidemia -Continue HCTZ 25 mg daily. Cardiology discontinued amlodipine. -Continue atorvastatin 20 mg p.o. daily GERD BPH -Continue PPI as well as tamsulosin. Full code. Ambulation. Discharge patient to home Condition on discharge: Improved Cardiac Diet as tolerated Ad Chelsey activity Rx written: Cardizem CD 240mg Qday. Aspirin 162mg Qday Follow-up with primary care physician within 7-10 days.
[2018-08-17 12:35] VITALS: BP 107/63; RESP 17; TEMP 97.3; O2SAT 98
[2018-08-17 13:46] VITALS: PULSE 71
== END 2018-08-17 18:22 | disposition home or self-care (01) ==
LOC: NEPC 16:51 → NEDA 20:54 → HCIS 22:45
PROVIDERS: ADMIT Hospitalist; ATTEND Hospitalist